=== PATIENT | female | born 1940 | race Caucasian/White ===

== ENCOUNTER 2017-01-20 08:44 | Emergency (ER) | payer MEDICARE, OTHER | END 2017-01-20 09:12 | disposition left against medical advice (07) | LOC: M ED 09:10 | DX: M25.562 Pain in left knee (principal); Z53.29 Procedure and treatment not carried out because of patient's decision for other reasons ==

== ENCOUNTER → 2017-06-20 | Outpatient (CLI) | payer MEDICARE, OTHER ==
--- NOTE | 2017-06-20 14:59 | REPMRS ---
Patient History The patient states she had a clinical breast exam in 06/15 Patient is nulliparous. No known family history of cancer. 2 benign localization of breast nodules of the right breast, 1976. Digital Woman Screen Mammo: June 20, 2017 - Exam #: [id number] Bilateral CC and MLO view(s) were taken. Technologist: Lacey Ramos, Technologist Prior study comparison: October 05, 2015, digital woman screen mammo performed at [facility] to [facility]. September 09, 2014, digital woman screen mammo performed at [facility] to [facility]. FINDINGS: There are scattered fibroglandular densities. There has been no change in the appearance of the mammogram from the prior studies. There is a mild amount of residual fibroglandular tissue which is fairly symmetric. There is no interval development of dominant mass, architectural distortion, or clustered microcalcification suggestive of malignancy. ASSESSMENT: BI-RADS/ACR category 1 mammogram. Negative. Recommendation Routine screening mammogram in 1 year (for women over age 40). This mammogram was interpreted with the aid of an FDA-approved computer-aided dectection system. Electronically Signed By: Mendez Martin MD 06/20/17 [id number]
== END ==
LOC: M WHC 13:42
PROVIDERS: ATTEND Nurse Practitioner Family
DX: Z12.31 Encounter for screening mammogram for malignant neoplasm of breast (principal); Z92.89 Personal history of other medical treatment; Z01.419 Encounter for gynecological examination (general) (routine) without abnormal findings; Z12.12 Encounter for screening for malignant neoplasm of rectum; B37.2 Candidiasis of skin and nail
CPT/HCPCS: 82270; G0101; G0202

== ENCOUNTER → 2017-07-18 | Outpatient (REF) | payer MEDICARE, OTHER ==
[2017-07-18 12:16] LABS: BASO % 0.5 % (0.0-1.0); EOS # 0.1 K/mm3 (0.0-0.50); EOS % 1.4 % (0.0-3.0); LARGE UNSTAINED CELL # 0.2 K/mm3 (0.0-0.4); LARGE UNSTAINED CELL % 2.4 % (0.0-4.0); LYMPH # 1.5 K/mm3 (1.5-4.5); MEAN CORPUSCULAR HEMOGLOBIN 34.4 pg (27.0-33.0); MEAN CORPUSCULAR HGB CONC 35.4 g/dl (32.0-36.5); MEAN CORPUSCULAR VOLUME 97.2 fl (80.0-96.0); MONO # 0.4 K/mm3 (0.0-0.8); MONO % 5.4 % (0.0-5.0); NEUTROPHILS # 5.2 K/mm3 (1.8-7.7); NEUTROPHILS % 70.5 % (36.0-66.0); PLATELET COUNT, AUTOMATED 239 k/mm3 (150-450); RED CELL DISTRIBUTION WIDTH 12.2 % (11.5-14.5); WHITE BLOOD COUNT 7.3 K/mm3 (4.0-10.0)
[2017-07-18 13:05] LABS: ALBUMIN 3.8 GM/DL (3.2-5.2); ALBUMIN/GLOBULIN RATIO 1.06 (1.00-1.93); BILIRUBIN,TOTAL 0.8 MG/DL (0.2-1.0); CALCIUM LEVEL 9.2 MG/DL (8.8-10.2); CREATININE FOR GFR 1.01 MG/DL (0.55-1.02); GLOMERULAR FILTRATION RATE 56.6 (>39); POTASSIUM SERUM 4.4 MEQ/L (3.5-5.1); TOTAL PROTEIN 7.4 GM/DL (6.4-8.2)
== END ==
LOC: M LABDRAW1 10:11
PROVIDERS: ATTEND Nurse Practitioner Family
DX: E78.4 Other hyperlipidemia (principal); I10 Essential (primary) hypertension; E11.9 Type 2 diabetes mellitus without complications

== ENCOUNTER 2017-11-08 16:36 | Inpatient (IN) | payer MEDICARE, OTHER ==
[2017-11-08] MEDS: ONDANSETRON 4MG/2ML VIAL (J2405) IV (17:07)
[2017-11-08] MEDS: MORPHINE 4 MG/ML 1ML SYRINGE IV (17:07)
[2017-11-08 17:46] LABS: BASO # 0.1 10^3/uL (0.0-0.2); BASO % 0.5 % (0.0-1.0); EOS # 0.2 10^3/uL (0.0-0.50); EOS % 2.1 % (0.0-3.0); HEMATOCRIT 40.9 % (36.0-47.0); HEMOGLOBIN 14.1 g/dl (12.0-16.0); IMMATURE GRANULOCYTE # 0.1 10^3/uL (0-0); IMMATURE GRANULOCYTE % 1.3 % (0-0); LYMPH # 1.9 10^3/uL (1.5-4.5); MEAN CORPUSCULAR HEMOGLOBIN 33.3 pg (27.0-33.0); MEAN CORPUSCULAR HGB CONC 34.5 g/dl (32.0-36.5); MEAN CORPUSCULAR VOLUME 96.5 fl (80.0-96.0); MONO # 0.6 10^3/uL (0.0-0.8); MONO % 6.6 % (0.0-5.0); NEUTROPHILS # 6.6 10^3/uL (1.8-7.7); NEUTROPHILS % 69.5 % (36.0-66.0); PLATELET COUNT, AUTOMATED 339 10^3/uL (150-450); RED BLOOD COUNT 4.24 10^6/uL (4.00-5.40); RED CELL DISTRIBUTION WIDTH 12.2 % (11.5-14.5); WHITE BLOOD COUNT 9.6 10^3/uL (4.0-10.0)
[2017-11-08 17:52] LABS: INR 1.08; PARTIAL THROMBOPLASTIN TIME 27.8 SECONDS (26.8-37.9); PROTHROMBIN TIME 14.2 SECONDS (12.4-14.5)
[2017-11-08 18:03] LABS: ANION GAP 10 MEQ/L (8-16); BLOOD UREA NITROGEN 21 MG/DL (7-18); CALCIUM LEVEL 9.1 MG/DL (8.8-10.2); CARBON DIOXIDE LEVEL 26 MEQ/L (21-32); CHLORIDE LEVEL 102 MEQ/L (98-107); CK-MB VALUE MASS 2.6 NG/ML (0.0-3.6); CPK CREATINE PHOSPHOKINASE 146 U/L (26-192); CREATININE FOR GFR 1.36 MG/DL (0.55-1.02); GLOMERULAR FILTRATION RATE 40.1 (>39); GLUCOSE, FASTING 175 MG/DL (83-110); MB/CK RELATIVE INDEX 1.78 (< OR =4); POTASSIUM SERUM 3.7 MEQ/L (3.5-5.1); SODIUM LEVEL 138 MEQ/L (136-145); TROPONIN I < 0.02 NG/ML (< 0.10)
[2017-11-08] MEDS: NALOXONE INJ 0.4 MG/1 ML VIAL (J2310) IV (18:46)
[2017-11-08] MEDS: NS 1,000 ML IV ×2 (18:53→23:24)
[2017-11-08] MEDS ORDERED: ONDANSETRON 4MG/2ML VIAL (J2405) IV (19:30)
[2017-11-08] MEDS: ACETAMINOPHEN TAB 650MG DOSE (2X325MG) PO (20:27)
[2017-11-09] MEDS: CALCIUM/VITAMIN D 250 MG TABLET PO ×3 (00:04→21:00)
[2017-11-09 00:33] LABS: ANION GAP 12 MEQ/L (8-16); BLOOD UREA NITROGEN 22 MG/DL (7-18); CARBON DIOXIDE LEVEL 24 MEQ/L (21-32); CHLORIDE LEVEL 101 MEQ/L (98-107); CPK CREATINE PHOSPHOKINASE 169 U/L (26-192); GLOMERULAR FILTRATION RATE 42.3 (>39); GLUCOSE, FASTING 280 MG/DL (83-110); POTASSIUM SERUM 4.2 MEQ/L (3.5-5.1); SODIUM LEVEL 137 MEQ/L (136-145); TROPONIN I < 0.02 NG/ML (< 0.10)
[2017-11-09 00:38] LABS: MB/CK RELATIVE INDEX 1.18 (< OR =4)
[2017-11-09] MEDS: KCL 10MEQ IN D5/0.45NS 1000ML 1,000 ML IV ×2 (06:30→22:26)
[2017-11-09 06:58] LABS: HEMATOCRIT 32.4 % (36.0-47.0); MEAN CORPUSCULAR HEMOGLOBIN 33.7 pg (27.0-33.0); MEAN CORPUSCULAR HGB CONC 35.2 g/dl (32.0-36.5); MEAN CORPUSCULAR VOLUME 95.9 fl (80.0-96.0); PLATELET COUNT, AUTOMATED 273 10^3/uL (150-450); RED BLOOD COUNT 3.38 10^6/uL (4.00-5.40); RED CELL DISTRIBUTION WIDTH 12.4 % (11.5-14.5); WHITE BLOOD COUNT 11.1 10^3/uL (4.0-10.0)
[2017-11-09 07:08] LABS: HEMOGLOBIN 11.4 g/dl (12.0-16.0)
[2017-11-09 07:17] LABS: ANION GAP 8 MEQ/L (8-16); BLOOD UREA NITROGEN 18 MG/DL (7-18); CALCIUM LEVEL 9.2 MG/DL (8.8-10.2); CARBON DIOXIDE LEVEL 26 MEQ/L (21-32); CHLORIDE LEVEL 103 MEQ/L (98-107); CREATININE FOR GFR 0.99 MG/DL (0.55-1.02); GLOMERULAR FILTRATION RATE 57.9 (>39); GLUCOSE, FASTING 167 MG/DL (83-110); MAGNESIUM LEVEL 1.8 MG/DL (1.8-2.4); POTASSIUM SERUM 3.9 MEQ/L (3.5-5.1); SODIUM LEVEL 137 MEQ/L (136-145)
[2017-11-09] MEDS ORDERED: LISINOPRIL 10 MG TAB PO (09:00)
[2017-11-09] MEDS ORDERED: ONDANSETRON 4MG/2ML VIAL (J2405) As Ordered (15:42)
[2017-11-09] MEDS ORDERED: LIDOCAINE 2% INJ 100 MG/5 ML SDV (FOR ANES.) As Ordered (15:42)
[2017-11-09] MEDS ORDERED: PHENYLEPHRINE INJ 10MG/ML VIAL (J2370) As Ordered ×2 (15:42→19:41)
[2017-11-09] MEDS ORDERED: dexameTHASONE 4 MG/ML 1ML VIAL (J1100) As Ordered (15:42)
[2017-11-09] MEDS ORDERED: PROPOFOL 200 MG/20 ML VIAL As Ordered ×2 (15:42→18:52)
[2017-11-09] MEDS ORDERED: PHENYLephrine HCL 500 MCG/5 ML (100MCG/ML) SYRINGE (J2370) As Ordered (15:42)
[2017-11-09] MEDS ORDERED: MIDAZOLAM INJ 2 MG/2 ML VIAL (J2250) As Ordered (15:43)
[2017-11-09] MEDS ORDERED: fentaNYL 100 MCG/2 ML INJECTION (J3010) As Ordered (15:43)
[2017-11-09] MEDS: CLINDAMYCIN 600 MG in APPROPRIATE DILUENT 1 EA IV (16:18)
[2017-11-09] MEDS: CLINDAMYCIN INJ 900MG/6ML VIAL As Ordered (16:52)
[2017-11-09] MEDS: ceFAZolin 2 GM/D5W 50 ML IV BAG (J0690 PER 500MG) As Ordered (18:06)
[2017-11-09] MEDS ORDERED: fentaNYL 100 MCG/2 ML INJECTION (J3010) IV (20:30)
[2017-11-09] MEDS ORDERED: PERCOCET 5MG/325MG TAB PO (20:30)
[2017-11-09] MEDS ORDERED: METOCLOPRAMIDE INJ 10MG/2ML VIAL (J2765) IV (20:30)
[2017-11-09] MEDS: LR 1,000 ML IV (20:30)
[2017-11-09] MEDS ORDERED: ONDANSETRON 4MG/2ML VIAL (J2405) IV (20:30)
[2017-11-09] MEDS ORDERED: MEPERIDINE INJ 25 MG/ML VIAL (J2175) IV (20:30)
[2017-11-09] MEDS ORDERED: FLEET ENEMA PR (20:45)
[2017-11-10] MEDS: CEFAZOLIN SOD 1 GM in APPROPRIATE DILUENT 1 EA IV ×2 (00:30→10:12)
[2017-11-10] MEDS: ACETAMINOPHEN TAB 650MG DOSE (2X325MG) PO (04:27)
[2017-11-10 05:39] LABS: HEMOGLOBIN 11.2 g/dl (12.0-16.0); MEAN CORPUSCULAR HEMOGLOBIN 33.7 pg (27.0-33.0); MEAN CORPUSCULAR VOLUME 96.4 fl (80.0-96.0); PLATELET COUNT, AUTOMATED 225 10^3/uL (150-450); RED BLOOD COUNT 3.32 10^6/uL (4.00-5.40); RED CELL DISTRIBUTION WIDTH 11.9 % (11.5-14.5); WHITE BLOOD COUNT 10.9 10^3/uL (4.0-10.0)
[2017-11-10 06:01] LABS: ANION GAP 8 MEQ/L (8-16); BLOOD UREA NITROGEN 14 MG/DL (7-18); CALCIUM LEVEL 8.5 MG/DL (8.8-10.2); CARBON DIOXIDE LEVEL 24 MEQ/L (21-32); CHLORIDE LEVEL 104 MEQ/L (98-107); CREATININE FOR GFR 1.05 MG/DL (0.55-1.02); GLOMERULAR FILTRATION RATE 54.1 (>39); GLUCOSE, FASTING 280 MG/DL (83-110); MAGNESIUM LEVEL 1.4 MG/DL (1.8-2.4); POTASSIUM SERUM 4.4 MEQ/L (3.5-5.1); SODIUM LEVEL 136 MEQ/L (136-145)
[2017-11-10] MEDS: MAG SULF 1GM/100ML (MAG RUN) 1 GM in APPROPRIATE DILUENT 1 EA IV ×2 (06:52→10:11)
[2017-11-10] MEDS ORDERED: MAG SULF 1GM/100ML (MAG RUN) 1 GM in APPROPRIATE DILUENT 1 EA IV (08:00)
[2017-11-10] MEDS: SENOKOT S TAB PO ×2 (10:11→21:18)
[2017-11-10] MEDS: CALCIUM/VITAMIN D 250 MG TABLET PO ×2 (10:11→21:18)
[2017-11-10] MEDS: MOM 30ML SUSPENSION UDC PO (10:11)
[2017-11-10] MEDS: ENOXAPARIN 40 MG/0.4 ML SYRINGE (J1650) SC (10:12)
[2017-11-10] MEDS: MIRALAX *UNIT DOSE* 17GM PACKET PO (10:12)
[2017-11-10] MEDS ORDERED: SLF 3 ML SYR IV (14:45)
[2017-11-10] MEDS: SLF 3 ML SYR IV (21:20)
[2017-11-11] MEDS: SLF 3 ML SYR IV ×3 (05:32→21:20)
[2017-11-11 05:58] LABS: HEMOGLOBIN 10.6 g/dl (12.0-16.0); MEAN CORPUSCULAR HEMOGLOBIN 32.6 pg (27.0-33.0); MEAN CORPUSCULAR HGB CONC 34.2 g/dl (32.0-36.5); MEAN CORPUSCULAR VOLUME 95.4 fl (80.0-96.0); PLATELET COUNT, AUTOMATED 249 10^3/uL (150-450); RED BLOOD COUNT 3.25 10^6/uL (4.00-5.40); RED CELL DISTRIBUTION WIDTH 12.1 % (11.5-14.5); WHITE BLOOD COUNT 12.2 10^3/uL (4.0-10.0)
[2017-11-11 06:12] LABS: ANION GAP 8 MEQ/L (8-16); BLOOD UREA NITROGEN 18 MG/DL (7-18); CALCIUM LEVEL 8.9 MG/DL (8.8-10.2); CARBON DIOXIDE LEVEL 26 MEQ/L (21-32); CHLORIDE LEVEL 104 MEQ/L (98-107); GLOMERULAR FILTRATION RATE > 60.0 (>39); GLUCOSE, FASTING 153 MG/DL (83-110); MAGNESIUM LEVEL 2.1 MG/DL (1.8-2.4); POTASSIUM SERUM 3.7 MEQ/L (3.5-5.1); SODIUM LEVEL 138 MEQ/L (136-145)
[2017-11-11] MEDS: CALCIUM/VITAMIN D 250 MG TABLET PO ×2 (09:34→21:20)
[2017-11-11] MEDS: MOM 30ML SUSPENSION UDC PO (09:34)
[2017-11-11] MEDS: traMADol 50 MG TAB PO (09:34)
[2017-11-11] MEDS: SENOKOT S TAB PO ×2 (09:34→21:20)
[2017-11-11] MEDS: MIRALAX *UNIT DOSE* 17GM PACKET PO (09:34)
[2017-11-11] MEDS: ENOXAPARIN 40 MG/0.4 ML SYRINGE (J1650) SC (09:34)
[2017-11-11] MEDS: ATENOLOL 50 MG TAB PO (10:45)
[2017-11-11 10:58] LABS: AMMONIA < 10 uMOL/L (<32)
[2017-11-11 11:02] LABS: ALBUMIN 3.4 GM/DL (3.2-5.2); ALKALINE PHOSPHATASE 74 U/L (45-117); ALT/SGPT 20 U/L (12-78); AST/SGOT 32 U/L (7-37); BILIRUBIN,DIRECT 0.2 MG/DL (0.0-0.2); BILIRUBIN,TOTAL 0.7 MG/DL (0.2-1.0); TOTAL PROTEIN 6.8 GM/DL (6.4-8.2)
[2017-11-11 11:18] LABS: ESTIMATED AVERAGE GLUCOSE 163 MG/DL (60-110); HEMOGLOBIN A1c 7.3 %
[2017-11-11] MEDS: glyBURIDE 5 MG TAB PO (11:22)
[2017-11-11] MEDS: metFORMIN (GLUCOPHAGE) 500 MG TAB PO ×2 (12:07→17:55)
[2017-11-11 12:18] LABS: BEDSIDE GLUCOSE 245 MG/DL (83-110)
[2017-11-11 15:15] LABS: AMORPHOUS SEDIMENT RFX SMALL (NEGATIVE); KETONE, URINE AUTO RFX NEGATIVE (NEGATIVE); MUCUS, URINE RFX SMALL (NEGATIVE); NITRITE, URINE AUTO RFX NEGATIVE (NEGATIVE); RBC, URINE AUTO RFX 0 /HPF (0-3); SPECIFIC GRAVITY UR AUTO RFX 1.019 (1.002-1.035); SQUAM EPITHELIAL CELL UR AURFX 8 /HPF (0-6)
[2017-11-11 15:16] LABS: LEUKOCYTE ESTERASE UR AUTO RFX 1+ (NEGATIVE); WBC, URINE AUTO RFX 36 /HPF (0-3)
[2017-11-11 17:42] LABS: BEDSIDE GLUCOSE 202 MG/DL (83-110)
[2017-11-12] MEDS: SLF 3 ML SYR IV ×3 (04:01→20:22)
[2017-11-12 06:15] LABS: HEMOGLOBIN 9.6 g/dl (12.0-16.0); MEAN CORPUSCULAR HEMOGLOBIN 33.2 pg (27.0-33.0); MEAN CORPUSCULAR HGB CONC 34.3 g/dl (32.0-36.5); MEAN CORPUSCULAR VOLUME 96.9 fl (80.0-96.0); PLATELET COUNT, AUTOMATED 226 10^3/uL (150-450); RED BLOOD COUNT 2.89 10^6/uL (4.00-5.40); RED CELL DISTRIBUTION WIDTH 12.6 % (11.5-14.5); WHITE BLOOD COUNT 9.9 10^3/uL (4.0-10.0)
[2017-11-12 06:36] LABS: ANION GAP 7 MEQ/L (8-16); BLOOD UREA NITROGEN 20 MG/DL (7-18); CALCIUM LEVEL 8.4 MG/DL (8.8-10.2); CARBON DIOXIDE LEVEL 27 MEQ/L (21-32); CHLORIDE LEVEL 105 MEQ/L (98-107); CREATININE FOR GFR 0.81 MG/DL (0.55-1.02); GLOMERULAR FILTRATION RATE > 60.0 (>39); GLUCOSE, FASTING 145 MG/DL (83-110); SODIUM LEVEL 139 MEQ/L (136-145)
[2017-11-12] MEDS: MOM 30ML SUSPENSION UDC PO (07:25)
[2017-11-12] MEDS: MIRALAX *UNIT DOSE* 17GM PACKET PO (07:25)
[2017-11-12] MEDS: glyBURIDE 5 MG TAB PO (07:25)
[2017-11-12] MEDS: SENOKOT S TAB PO ×2 (07:25→20:22)
[2017-11-12] MEDS: metFORMIN (GLUCOPHAGE) 500 MG TAB PO ×3 (07:25→17:46)
[2017-11-12] MEDS: traMADol 50 MG TAB PO ×2 (07:35→12:39)
[2017-11-12] MEDS: ATENOLOL 50 MG TAB PO (09:00)
[2017-11-12] MEDS: CALCIUM/VITAMIN D 250 MG TABLET PO ×2 (10:03→20:22)
[2017-11-12] MEDS: ENOXAPARIN 40 MG/0.4 ML SYRINGE (J1650) SC (10:04)
[2017-11-12 12:12] LABS: BEDSIDE GLUCOSE 164 MG/DL (83-110)
[2017-11-12 17:57] LABS: BEDSIDE GLUCOSE 191 MG/DL (83-110)
[2017-11-13] MEDS: SLF 3 ML SYR IV (05:27)
[2017-11-13 07:09] LABS: HEMATOCRIT 28.8 % (36.0-47.0); HEMOGLOBIN 9.8 g/dl (12.0-16.0); MEAN CORPUSCULAR HEMOGLOBIN 33.2 pg (27.0-33.0); MEAN CORPUSCULAR VOLUME 97.6 fl (80.0-96.0); PLATELET COUNT, AUTOMATED 235 10^3/uL (150-450); RED BLOOD COUNT 2.95 10^6/uL (4.00-5.40); RED CELL DISTRIBUTION WIDTH 12.7 % (11.5-14.5); WHITE BLOOD COUNT 8.2 10^3/uL (4.0-10.0)
[2017-11-13 07:22] LABS: ANION GAP 6 MEQ/L (8-16); BLOOD UREA NITROGEN 17 MG/DL (7-18); CALCIUM LEVEL 8.3 MG/DL (8.8-10.2); CARBON DIOXIDE LEVEL 27 MEQ/L (21-32); CHLORIDE LEVEL 104 MEQ/L (98-107); CREATININE FOR GFR 0.79 MG/DL (0.55-1.02); GLOMERULAR FILTRATION RATE > 60.0 (>39); GLUCOSE, FASTING 145 MG/DL (83-110); MAGNESIUM LEVEL 1.9 MG/DL (1.8-2.4); POTASSIUM SERUM 3.9 MEQ/L (3.5-5.1); SODIUM LEVEL 137 MEQ/L (136-145)
[2017-11-13] MEDS: glyBURIDE 5 MG TAB PO (07:30)
[2017-11-13] MEDS: metFORMIN (GLUCOPHAGE) 500 MG TAB PO ×2 (08:00→12:05)
[2017-11-13] MEDS: ENOXAPARIN 40 MG/0.4 ML SYRINGE (J1650) SC (08:40)
[2017-11-13] MEDS: MOM 30ML SUSPENSION UDC PO (08:40)
[2017-11-13] MEDS: MIRALAX *UNIT DOSE* 17GM PACKET PO (08:41)
[2017-11-13] MEDS: SENOKOT S TAB PO (08:43)
[2017-11-13] MEDS: ATENOLOL 50 MG TAB PO (08:43)
[2017-11-13] MEDS: CALCIUM/VITAMIN D 250 MG TABLET PO (08:43)
[2017-11-13] MEDS: traMADol 50 MG TAB PO (10:42)
[2017-11-13 11:51] LABS: BEDSIDE GLUCOSE 173 MG/DL (83-110)
== END 2017-11-13 13:00 | DRG 482 ==
LOC: M PCU 11-09 20:59 → M ED 16:36 → M ED INP 19:29 → M MS5PR 11-10 17:40 → M MSPAV 23:08
PROC: 0QS706Z Reposition Left Upper Femur with Intramedullary Internal Fixation Device, Open Approach (ICD-10-PCS; principal; 2017-11-09 16:00)
DX: S72.102A Unspecified trochanteric fracture of left femur, initial encounter for closed fracture (principal); R00.1 Bradycardia, unspecified; E11.9 Type 2 diabetes mellitus without complications; I10 Essential (primary) hypertension; E78.00 Pure hypercholesterolemia, unspecified; R41.0 Disorientation, unspecified; E78.5 Hyperlipidemia, unspecified; W00.2XXA Other fall from one level to another due to ice and snow, initial encounter; Y93.01 Activity, walking, marching and hiking; Y92.9 Unspecified place or not applicable; Y99.9 Unspecified external cause status; Z90.711 Acquired absence of uterus with remaining cervical stump

== ENCOUNTER 2017-11-13 13:05 | Inpatient (IN) | payer MEDICARE, OTHER ==
[~2017-11-13 13:05] MED LIST: FLEET ENEMA PR; MOM 30ML SUSPENSION UDC PO
[2017-11-13] MEDS: metFORMIN (GLUCOPHAGE) 1000 MG TABLET PO (18:08)
[2017-11-13] MEDS: SENOKOT S TAB PO (20:03)
[2017-11-13] MEDS: CALCIUM/VITAMIN D 250 MG TABLET PO (20:27)
[2017-11-14 07:25] LABS: BASO % 0.4 % (0.0-1.0); EOS # 0.4 10^3/uL (0.0-0.50); EOS % 4.9 % (0.0-3.0); HEMATOCRIT 29.2 % (36.0-47.0); HEMOGLOBIN 9.9 g/dl (12.0-16.0); IMMATURE GRANULOCYTE # 0.2 10^3/uL (0-0); IMMATURE GRANULOCYTE % 2.3 % (0-0); LYMPH # 1.3 10^3/uL (1.5-4.5); MEAN CORPUSCULAR HGB CONC 33.9 g/dl (32.0-36.5); MEAN CORPUSCULAR VOLUME 97.3 fl (80.0-96.0); MONO # 0.6 10^3/uL (0.0-0.8); MONO % 7.7 % (0.0-5.0); NEUTROPHILS # 4.9 10^3/uL (1.8-7.7); NEUTROPHILS % 66.7 % (36.0-66.0); PLATELET COUNT, AUTOMATED 253 10^3/uL (150-450); RED CELL DISTRIBUTION WIDTH 13.1 % (11.5-14.5); WHITE BLOOD COUNT 7.4 10^3/uL (4.0-10.0)
[2017-11-14 07:51] LABS: ALBUMIN 2.6 GM/DL (3.2-5.2); ALBUMIN/GLOBULIN RATIO 0.74 (1.00-1.93); ALKALINE PHOSPHATASE 69 U/L (45-117); ALT/SGPT 20 U/L (12-78); ANION GAP 5 MEQ/L (8-16); AST/SGOT 26 U/L (7-37); BILIRUBIN,TOTAL 0.8 MG/DL (0.2-1.0); BLOOD UREA NITROGEN 15 MG/DL (7-18); CALCIUM LEVEL 8.5 MG/DL (8.8-10.2); CARBON DIOXIDE LEVEL 29 MEQ/L (21-32); CHLORIDE LEVEL 105 MEQ/L (98-107); CREATININE FOR GFR 0.76 MG/DL (0.55-1.02); GLOMERULAR FILTRATION RATE > 60.0 (>39); GLUCOSE, FASTING 157 MG/DL (83-110); SODIUM LEVEL 139 MEQ/L (136-145); TOTAL PROTEIN 6.1 GM/DL (6.4-8.2)
[2017-11-14] MEDS: CALCIUM/VITAMIN D 250 MG TABLET PO ×2 (08:20→21:02)
[2017-11-14] MEDS: metFORMIN (GLUCOPHAGE) 1000 MG TABLET PO ×2 (08:20→18:13)
[2017-11-14] MEDS: MIRALAX *UNIT DOSE* 17GM PACKET PO (08:21)
[2017-11-14] MEDS: SENOKOT S TAB PO (08:21)
[2017-11-14] MEDS: ATENOLOL 50 MG TAB PO (08:21)
[2017-11-14] MEDS: ENOXAPARIN 40 MG/0.4 ML SYRINGE (J1650) SC (08:21)
[2017-11-14] MEDS: glyBURIDE 5 MG TAB PEG (08:21)
[2017-11-14] MEDS: traMADol 50 MG TAB PO (08:50)
[2017-11-14] MEDS: LevoFLOXacin 250 MG TABLET PO (09:57)
[2017-11-14] MEDS: metFORMIN (GLUCOPHAGE) 500 MG TAB PO (12:31)
[2017-11-14] MEDS: ACETAMINOPHEN TAB 650MG DOSE (2X325MG) PO (21:03)
[2017-11-15] MEDS: ACETAMINOPHEN TAB 650MG DOSE (2X325MG) PO ×2 (05:18→21:54)
[2017-11-15] MEDS: LevoFLOXacin 250 MG TABLET PO (05:18)
[2017-11-15] MEDS: ENOXAPARIN 40 MG/0.4 ML SYRINGE (J1650) SC (08:34)
[2017-11-15] MEDS: metFORMIN (GLUCOPHAGE) 1000 MG TABLET PO ×2 (08:35→17:06)
[2017-11-15] MEDS: CALCIUM/VITAMIN D 250 MG TABLET PO ×2 (08:35→21:54)
[2017-11-15] MEDS: glyBURIDE 5 MG TAB PEG (08:35)
[2017-11-15] MEDS: ATENOLOL 50 MG TAB PO (08:35)
[2017-11-15] MEDS ORDERED: MIRALAX *UNIT DOSE* 17GM PACKET PO (09:00)
[2017-11-15] MEDS ORDERED: SENOKOT S TAB PO (09:00)
[2017-11-15] MEDS: metFORMIN (GLUCOPHAGE) 500 MG TAB PO (12:01)
[2017-11-16] MEDS: traMADol 50 MG TAB PO ×2 (01:55→09:04)
[2017-11-16] MEDS: LevoFLOXacin 250 MG TABLET PO (05:40)
[2017-11-16 07:13] LABS: HEMATOCRIT 28.6 % (36.0-47.0); HEMOGLOBIN 9.6 g/dl (12.0-16.0); MEAN CORPUSCULAR HEMOGLOBIN 33.2 pg (27.0-33.0); MEAN CORPUSCULAR HGB CONC 33.6 g/dl (32.0-36.5); PLATELET COUNT, AUTOMATED 258 10^3/uL (150-450); RED BLOOD COUNT 2.89 10^6/uL (4.00-5.40); RED CELL DISTRIBUTION WIDTH 13.4 % (11.5-14.5); WHITE BLOOD COUNT 7.3 10^3/uL (4.0-10.0)
[2017-11-16 07:25] LABS: ALBUMIN 2.6 GM/DL (3.2-5.2); ALBUMIN/GLOBULIN RATIO 0.76 (1.00-1.93); ALKALINE PHOSPHATASE 60 U/L (45-117); ALT/SGPT 21 U/L (12-78); ANION GAP 6 MEQ/L (8-16); AST/SGOT 26 U/L (7-37); BILIRUBIN,TOTAL 0.6 MG/DL (0.2-1.0); BLOOD UREA NITROGEN 13 MG/DL (7-18); CALCIUM LEVEL 8.2 MG/DL (8.8-10.2); CARBON DIOXIDE LEVEL 26 MEQ/L (21-32); CHLORIDE LEVEL 108 MEQ/L (98-107); CREATININE FOR GFR 0.81 MG/DL (0.55-1.02); GLOMERULAR FILTRATION RATE > 60.0 (>39); GLUCOSE, FASTING 114 MG/DL (83-110); POTASSIUM SERUM 3.9 MEQ/L (3.5-5.1); SODIUM LEVEL 140 MEQ/L (136-145)
[2017-11-16] MEDS: ENOXAPARIN 40 MG/0.4 ML SYRINGE (J1650) SC (09:02)
[2017-11-16] MEDS: CALCIUM/VITAMIN D 250 MG TABLET PO ×2 (09:02→20:46)
[2017-11-16] MEDS: metFORMIN (GLUCOPHAGE) 1000 MG TABLET PO ×2 (09:03→17:45)
[2017-11-16] MEDS: ATENOLOL 50 MG TAB PO (09:03)
[2017-11-16] MEDS: glyBURIDE 5 MG TAB PEG (09:03)
[2017-11-16] MEDS: metFORMIN (GLUCOPHAGE) 500 MG TAB PO (13:57)
[2017-11-16] MEDS: ACETAMINOPHEN TAB 650MG DOSE (2X325MG) PO (20:46)
[2017-11-17] MEDS: traMADol 50 MG TAB PO ×3 (00:55→20:28)
[2017-11-17] MEDS: LevoFLOXacin 250 MG TABLET PO (05:40)
[2017-11-17] MEDS: CALCIUM/VITAMIN D 250 MG TABLET PO ×2 (09:06→20:27)
[2017-11-17] MEDS: glyBURIDE 5 MG TAB PEG (09:06)
[2017-11-17] MEDS: metFORMIN (GLUCOPHAGE) 1000 MG TABLET PO ×2 (09:06→17:18)
[2017-11-17] MEDS: ENOXAPARIN 40 MG/0.4 ML SYRINGE (J1650) SC (09:08)
[2017-11-17] MEDS: ATENOLOL 50 MG TAB PO (09:09)
[2017-11-17] MEDS: metFORMIN (GLUCOPHAGE) 500 MG TAB PO (12:24)
[2017-11-18] MEDS: ACETAMINOPHEN TAB 650MG DOSE (2X325MG) PO ×2 (05:20→20:10)
[2017-11-18] MEDS: LevoFLOXacin 250 MG TABLET PO (05:20)
[2017-11-18] MEDS: metFORMIN (GLUCOPHAGE) 1000 MG TABLET PO ×2 (08:10→17:47)
[2017-11-18] MEDS: CALCIUM/VITAMIN D 250 MG TABLET PO ×2 (08:10→20:10)
[2017-11-18] MEDS: glyBURIDE 5 MG TAB PEG (08:10)
[2017-11-18] MEDS: traMADol 50 MG TAB PO (08:11)
[2017-11-18] MEDS: ATENOLOL 50 MG TAB PO (08:11)
[2017-11-18] MEDS: ENOXAPARIN 40 MG/0.4 ML SYRINGE (J1650) SC (08:11)
[2017-11-18] MEDS: metFORMIN (GLUCOPHAGE) 500 MG TAB PO (12:32)
[2017-11-19] MEDS: LevoFLOXacin 250 MG TABLET PO (06:44)
[2017-11-19] MEDS: ACETAMINOPHEN TAB 650MG DOSE (2X325MG) PO (06:45)
[2017-11-19 06:56] LABS: HEMATOCRIT 31.9 % (36.0-47.0); HEMOGLOBIN 10.6 g/dl (12.0-16.0); MEAN CORPUSCULAR HEMOGLOBIN 33.1 pg (27.0-33.0); MEAN CORPUSCULAR HGB CONC 33.2 g/dl (32.0-36.5); MEAN CORPUSCULAR VOLUME 99.7 fl (80.0-96.0); PLATELET COUNT, AUTOMATED 320 10^3/uL (150-450); RED CELL DISTRIBUTION WIDTH 14.1 % (11.5-14.5); WHITE BLOOD COUNT 8.1 10^3/uL (4.0-10.0)
[2017-11-19 07:16] LABS: ANION GAP 7 MEQ/L (8-16); BLOOD UREA NITROGEN 14 MG/DL (7-18); CARBON DIOXIDE LEVEL 26 MEQ/L (21-32); CHLORIDE LEVEL 105 MEQ/L (98-107); CREATININE FOR GFR 0.83 MG/DL (0.55-1.02); GLOMERULAR FILTRATION RATE > 60.0 (>39); GLUCOSE, FASTING 81 MG/DL (83-110); SODIUM LEVEL 138 MEQ/L (136-145)
[2017-11-19] MEDS: traMADol 50 MG TAB PO ×2 (08:08→19:56)
[2017-11-19] MEDS: glyBURIDE 5 MG TAB PEG (08:08)
[2017-11-19] MEDS: metFORMIN (GLUCOPHAGE) 1000 MG TABLET PO ×2 (08:08→18:39)
[2017-11-19] MEDS: ATENOLOL 50 MG TAB PO (08:09)
[2017-11-19] MEDS: ENOXAPARIN 40 MG/0.4 ML SYRINGE (J1650) SC (08:09)
[2017-11-19] MEDS: CALCIUM/VITAMIN D 250 MG TABLET PO ×2 (08:09→19:55)
[2017-11-19] MEDS: metFORMIN (GLUCOPHAGE) 500 MG TAB PO (12:48)
[2017-11-20] MEDS: LevoFLOXacin 250 MG TABLET PO (05:09)
[2017-11-20] MEDS: ACETAMINOPHEN TAB 650MG DOSE (2X325MG) PO ×2 (05:09→20:44)
[2017-11-20] MEDS: ENOXAPARIN 40 MG/0.4 ML SYRINGE (J1650) SC (08:36)
[2017-11-20] MEDS: CALCIUM/VITAMIN D 250 MG TABLET PO ×2 (08:36→20:43)
[2017-11-20] MEDS: metFORMIN (GLUCOPHAGE) 1000 MG TABLET PO ×2 (08:36→17:25)
[2017-11-20] MEDS: glyBURIDE 5 MG TAB PEG (08:37)
[2017-11-20] MEDS: ATENOLOL 50 MG TAB PO (08:38)
[2017-11-20] MEDS: metFORMIN (GLUCOPHAGE) 500 MG TAB PO (12:08)
[2017-11-20] MEDS: traMADol 50 MG TAB PO (21:55)
[2017-11-21] MEDS: ACETAMINOPHEN TAB 650MG DOSE (2X325MG) PO ×2 (03:34→20:24)
[2017-11-21] MEDS: glyBURIDE 5 MG TAB PEG (07:30)
[2017-11-21] MEDS: metFORMIN (GLUCOPHAGE) 1000 MG TABLET PO ×2 (08:00→17:50)
[2017-11-21] MEDS: CALCIUM/VITAMIN D 250 MG TABLET PO ×2 (09:00→20:24)
[2017-11-21] MEDS: ATENOLOL 50 MG TAB PO (09:00)
[2017-11-21] MEDS: ENOXAPARIN 40 MG/0.4 ML SYRINGE (J1650) SC (12:16)
[2017-11-21] MEDS: metFORMIN (GLUCOPHAGE) 500 MG TAB PO (12:17)
[2017-11-22 07:22] LABS: MEAN CORPUSCULAR HEMOGLOBIN 33.8 pg (27.0-33.0); MEAN CORPUSCULAR HGB CONC 33.3 g/dl (32.0-36.5); MEAN CORPUSCULAR VOLUME 101.4 fl (80.0-96.0); PLATELET COUNT, AUTOMATED 320 10^3/uL (150-450); RED BLOOD COUNT 2.96 10^6/uL (4.00-5.40); RED CELL DISTRIBUTION WIDTH 14.5 % (11.5-14.5); WHITE BLOOD COUNT 6.9 10^3/uL (4.0-10.0)
[2017-11-22] MEDS: CALCIUM/VITAMIN D 250 MG TABLET PO (08:45)
[2017-11-22] MEDS: metFORMIN (GLUCOPHAGE) 1000 MG TABLET PO (08:45)
[2017-11-22] MEDS: glyBURIDE 5 MG TAB PEG (08:45)
[2017-11-22] MEDS: ATENOLOL 50 MG TAB PO (08:48)
[2017-11-22] MEDS: ENOXAPARIN 40 MG/0.4 ML SYRINGE (J1650) SC (08:48)
[2017-11-22] MEDS: metFORMIN (GLUCOPHAGE) 500 MG TAB PO (12:48)
== END 2017-11-22 13:45 | disposition home health service (06) | DRG 560 ==
LOC: M PM&R 13:05
DX: S72.142D Displaced intertrochanteric fracture of left femur, subsequent encounter for closed fracture with routine healing (principal); N39.0 Urinary tract infection, site not specified; I25.10 Atherosclerotic heart disease of native coronary artery without angina pectoris; I10 Essential (primary) hypertension; E78.5 Hyperlipidemia, unspecified; I25.2 Old myocardial infarction; E11.9 Type 2 diabetes mellitus without complications; E66.9 Obesity, unspecified; M85.80 Other specified disorders of bone density and structure, unspecified site; M17.12 Unilateral primary osteoarthritis, left knee; Z87.891 Personal history of nicotine dependence; Z88.0 Allergy status to penicillin; Z88.5 Allergy status to narcotic agent; Z79.84 Long term (current) use of oral hypoglycemic drugs; Z79.899 Other long term (current) drug therapy; W01.0XXD Fall on same level from slipping, tripping and stumbling without subsequent striking against object, subsequent encounter; Y92.89 Other specified places as the place of occurrence of the external cause; B96.20 Unspecified Escherichia coli [E. coli] as the cause of diseases classified elsewhere; D64.9 Anemia, unspecified; Z68.35 Body mass index [BMI] 35.0-35.9, adult

== ENCOUNTER 2018-01-31 10:44 | Outpatient (RCR) | payer MEDICARE, OTHER | END 2018-02-26 | LOC: M PT 10:44 | DX: Z47.89 Encounter for other orthopedic aftercare (principal); S72.142D Displaced intertrochanteric fracture of left femur, subsequent encounter for closed fracture with routine healing | CPT/HCPCS: 97110 ==

== ENCOUNTER 2018-03-01 08:11 | Outpatient (RCR) | payer MEDICARE, OTHER | END 2018-03-29 | disposition home or self-care (01) | LOC: M PT 08:11 | DX: Z47.89 Encounter for other orthopedic aftercare (principal); S72.142D Displaced intertrochanteric fracture of left femur, subsequent encounter for closed fracture with routine healing | CPT/HCPCS: 97110 ==

== ENCOUNTER → 2020-03-20 | Outpatient (REF) | payer MEDICARE, OTHER ==
[~2020-03-20] MED LIST changes: +ASPI1TAB15 PO; +ATEN50TA2 PO; +CALC25TA PO; -FLEET ENEMA PR; +GLYB5TA PO; +LISI20TA20 PO; +LOVE1INJ SC; +METF500T13 PO; +MILK120011 PO; -MOM 30ML SUSPENSION UDC PO; +ONGL1TAB9 PO; +SENN-53 PO; +TRAM50TA2 PO
[2020-03-20 17:10] LABS: ALBUMIN 3.8 GM/DL (3.2-5.2); BILIRUBIN,TOTAL 0.7 MG/DL (0.2-1.0); CALCIUM LEVEL 9.5 MG/DL (8.8-10.2); CHOLESTEROL RISK RATIO 4.9 (<5); GLOMERULAR FILTRATION RATE 56.8 (>32); POTASSIUM SERUM 4.7 MEQ/L (3.5-5.1); TOTAL PROTEIN 7.4 GM/DL (6.4-8.2)
[2020-03-20 17:43] LABS: HEMOGLOBIN A1c 7.6 %
== END ==
LOC: M SFHCPLAZ 13:54
PROVIDERS: ATTEND Physician Assistant
DX: E11.9 Type 2 diabetes mellitus without complications (principal); E78.2 Mixed hyperlipidemia

== ENCOUNTER 2020-05-17 11:02 | Inpatient (IN) | payer MEDICARE, OTHER ==
[~2020-05-17] VITALS: Ht 154.9 cm; Wt 92.5 kg
[2020-05-17 12:08] LABS: BASO % 0.1 % (0.0-1.0); HEMATOCRIT 36.3 % (36.0-47.0); HEMOGLOBIN 11.1 g/dl (12.0-15.5); LYMPH # 0.4 10^3/uL (1.5-5.0); LYMPH % 1.9 % (24.0-44.0); MEAN CORPUSCULAR HGB CONC 30.6 g/dl (32.0-36.5); MONO # 0.9 10^3/uL (0.0-0.8); MONO % 4.5 % (0.0-5.0); NEUTROPHILS # 17.7 10^3/uL (1.5-8.5); NEUTROPHILS % 92.7 % (36.0-66.0); PLATELET COUNT, AUTOMATED 237 10^3/uL (150-450); RED BLOOD COUNT 4.27 10^6/uL (4.00-5.40); WHITE BLOOD COUNT 19.1 10^3/uL (4.0-10.0)
--- NOTE | 2020-05-17 12:36 | REP ---
REASON: Cough and dyspnea. COMPARISON: Two-view 07/15/2008 and portable exam 11/08/2017, the latest prior. Once again, there is cardiomegaly accentuated by technique. Once again, there is a diffuse increase in the interstitial markings throughout the lung hill; however, this has increased from the prior exam. There is a haziness throughout the pulmonary vascularity. There are no patchy opacities or pleural effusions. IMPRESSION: CHF pattern with cardiomegaly. Electronically Signed by Jhonny Tovar DO 05/17/2020 01:11 P
[2020-05-17 12:48] LABS: ALBUMIN 2.8 GM/DL (3.2-5.2); BILIRUBIN,DIRECT 0.5 MG/DL (0.0-0.2); BILIRUBIN,TOTAL 1.2 MG/DL (0.2-1.0); CALCIUM LEVEL 8.3 MG/DL (8.8-10.2); CREATININE FOR GFR 1.34 MG/DL (0.55-1.30); GLOMERULAR FILTRATION RATE 40.5 (>32); POTASSIUM SERUM 4.5 MEQ/L (3.5-5.1); THYROID STIMULATING HORMONE 2.44 uIU/ML (0.358-3.740); THYROXINE (T4) 7.2 UG/DL (4.5-12.0); TOTAL PROTEIN 6.2 GM/DL (6.4-8.2)
[2020-05-17] MEDS ORDERED: FUROSEMIDE 20MG/2ML VIAL (J1940) IV ONE ×2 (13:00→15:00)
[2020-05-17] MEDS: VANCOMYCIN HCL 1,000 MG, VIAL MATE ADAPTER 1 EACH in D5W 250 ML IV SCH (13:39)
[2020-05-17] MEDS ORDERED: ATEN50TA2 PO (14:14)
[2020-05-17] MEDS ORDERED: SENN-52 PO (14:14)
[2020-05-17] MEDS ORDERED: OYST1TAB PO (14:14)
[2020-05-17] MEDS ORDERED: GLYB5TA GT (14:14)
[2020-05-17] MEDS ORDERED: METF500T13 PO ×2 (14:14)
[2020-05-17] MEDS ORDERED: ONGL1TAB9 PO (14:14)
[2020-05-17] MEDS ORDERED: MILKSUS3 PO (14:14)
[2020-05-17] MEDS ORDERED: GLUCOSE 4GM CHEW TABLET PO PRN (14:15)
[2020-05-17] MEDS ORDERED: GLUCAGON INJ 1MG VIAL SC PRN (14:15)
[2020-05-17] MEDS ORDERED: DEXTROSE 50% 50 ML SYRINGE IV PRN (14:15)
--- NOTE | 2020-05-17 14:28 | HPEPDOC ---
[facility] Medical History & Physical Date of Admission May 17, 2020 Date of Service: May 17, 2020 History and Physical CHIEF COMPLAINT: LLE swelling HISTORY OF PRESENT ILLNESS: Patient is 80 year old female with dementia, DM, HTN, HLD, CAD? presented to the ER with complaints of LLE swelling and pain. Patient is AAO x3 but unable to answer any medical problems, her at bedside can answer some but does not know her medical problems either, history of obtained from previous documentation and ER. Patient's states that patient has had swelling in her legs b/l for 3 weeks associated with erythema along with SOB. Unable to provide any further history and only states that there is some pain in her left leg but denies any chest pain, current SOB, fever, chills or any other complaints. Does not report previous history of CHF. Patient [place] saying [place]. In ER, patient was found to have b/l pitting edema along with BNP 4800 and CXR suggestive of vascular congestion. Patient and both denies any knowledge of any cardiac problems in the past. PAST MEDICAL HISTORY: Refer to [facility] PAST SURGICAL HISTORY: Appendectomy Partial hysterectomy SOCIAL HISTORY: Former smoker. Denies alcohol or illicit drug use. FAMILY HISTORY: Father- thromboembolism of unknown site ALLERGIES: Please see below. REVIEW OF SYSTEMS: 10 point review of system negative except as stated in [facility] HOME MEDICATIONS: Please see below. PHYSICAL EXAMINATION: General: Alert, some confusion Eyes: Normal sclera, EOMI HENT: Atraumatic Cardiovascular: Normal rate, normal rhythm. Pulmonary: Clear to auscultation b/l, no wheezing GI: Soft, nontender, nondistended Skin: LLE erythema up to groin, worse below knees with several drained blisters. Neuro: CN grossly intact. No focal deficits. Somewhat confused, does not answer all questions or appropriately or at all. LABORATORY DATA: See below. IMAGING: CXR- CHF pattern with cardiomegaly. Venous doppler-Follow up report. MICROBIOLOGY: Please see below. ASSESSMENT AND PLAN: 1. Sepsis 2/2 LLE cellulitis - 2/2 persistent fluid overload. Likely undiagnosed congestive heart failure. - Erythema throughout LLE up to groin worse below the knees with 2-3+ pitting edema and several drained blisters. - Blood cultures obtained, LA 4.4 and WBC 19. - Patient fluid overload, would hold off on IVF at this time. Continue to monitor closely. 2. Suspect acute on chronic CHF of unknown type - Obtain ECHO. - Start with lasix 40mg IV BID. Patient diuretic naive, try not to be too aggressive. - Monitor I/O. Fluid restriction along with daily weights. - BNP 4800. 3. DM - Hold metformin. Continue with ISS. - Add levemir if needed. 4. HTN - BP controlled on atenolol. 5. CAD? - Patient and denies. - c/w ASA. 6. Dementia DVT ppx: Lovenox and SCD Code status: Full code Vital Signs Vital Signs Date Time Temp Pulse Resp B/P (MAP) Pulse Ox O2 Delivery O2 Flow Rate FiO2 05/17/20 13:45 85 23 127/73 (91) 99 Room Air 05/17/20 11:06 99.2 Laboratory Data Labs 24H Laboratory Tests 2 05/17/20 11:54: Immature Granulocyte % (Auto) 0.8, Neutrophils (%) (Auto) 92.7H, Lymphocytes (%) (Auto) 1.9L, Monocytes (%) (Auto) 4.5, Eosinophils (%) (Auto) 0.0, Basophils (%) (Auto) 0.1, Neutrophils # (Auto) 17.7H, Lymphocytes # (Auto) 0.4L, Monocytes # (Auto) 0.9H, Eosinophils # (Auto) 0.0, Basophils # (Auto) 0.0, Nucleated Red Blood Cells % (auto) 0.0, Anion Gap 12, Glomerular Filtration Rate 40.5, Lactic Acid Level 4.3*H, Calcium Level 8.3L, Total Bilirubin 1.2H, Direct Bilirubin 0.5H, Aspartate Amino Transf (AST/SGOT) 22, Alanine Aminotransferase (ALT/SGPT) 30, Alkaline Phosphatase 92, GL-Pdk-S-Type Natriuretic Peptide 4810H, Total Protein 6.2L, Albumin 2.8L, Albumin/Globulin Ratio 0.8L, Thyroid Stimulating Hormone (TSH) 2.440, Thyroxine (T4) 7.2 05/17/20 12:31: POC Glucose (Misc Panel) 177H, POC Sodium (Misc Panel) 135L, POC Potassium (Misc Panel) 4.8, POC Chloride (Misc Panel) 101, POC Total CO2 (Misc Panel) 23.0, POC Blood Urea Nitrogen (Misc Panel 23, POC Ionized Calcium (Misc Panel) 4.5, POC C reatinine (Misc Panel) 1.1, POC Hematocrit (Misc Panel) 38.0 05/17/20 12:33: POC Troponin I (Misc) 0.01 CBC/BMP Laboratory Tests 05/17/20 11:54 Microbiology Microbiology 05/17/20 Blood Culture, Received Pending 05/17/20 Blood Culture, Received Pending Home Medications Scheduled Aspirin (Aspirin EC) 81 Mg Tab, 81 MG PO DAILY Atenolol (Atenolol) 50 Mg Tablet, 50 MG PO DAILY Calcium Carbonate/Vitamin D3 (Oyster Shell 250-Vit D3 125 Tb) 1 Each Tablet, 1 TAB PO BID Glyburide (Glyburide) 5 Mg Tablet, 5 MG GT DAILY Metformin HCl (Metformin HCl) 500 Mg Tablet, 1,000 MG PO BID BREAKFAST AND DINNER Metformin HCl (Metformin HCl) 500 Mg Tablet, 500 MG PO DAILY @ NOON Saxagliptin HCl (Onglyza) 5 Mg Tablet, 5 MG PO DAILY Scheduled PRN Magnesium Hydroxide (Milk of Magnesia) 400 Mg/5 Ml Oral.susp, 2,400 MG PO DAILY PRN for CONSTIPATION Sennosides/Docusate Sodium (Senna Plus Tablet) 1 Each Tablet, 1 TAB PO BID PRN for CONSTIPATION Allergies Coded Allergies: morphine (Verified Allergy, Unknown, 05/17/20) Penicillins (Verified Adverse Reaction, Unknown, 05/17/20) A-FIB/CHADSVASC A-FIB History Current/History of A-Fib/PAF?: No ENRIQUE SERRANO MD May 17, 2020 14:28
[2020-05-17] MEDS ORDERED: SENOKOT S TAB PO PRN (14:45)
--- NOTE | 2020-05-17 14:47 | REP ---
DEEP VENOUS ULTRASONOGRAPHY BILATERAL THIGHS, RULE OUT DVT: REASON: Pain and swelling. TECHNIQUE: Multiple ultrasonographic images of the deep venous structures of the thigh were obtained from the common femoral vein to the popliteal vein along with Doppler interrogation and color flow Doppler images. FINDINGS: There is no abnormal echogenic material seen within any of the visualized deep venous structures that would suggest acute thrombosis. Coaptation is unremarkable throughout. Doppler interrogation shows an expected response to respiratory variability and augmentation. The color flow images show what appears to be a normal vascular pattern throughout. IMPRESSION: There is no ultrasonographic evidence of deep venous thrombosis involving any of the visualized deep venous structures of the bilateral thighs, as described above. The exam is limited on the left due to the patient's discomfort and edema seen throughout the exam. Although the technologist has indicated that there was an inability to compress the popliteal vein due to the edema, color Doppler imaging showed good color flow throughout. Electronically Signed by Jhonny Tovar DO 05/17/2020 02:50 P
[2020-05-17 15:00] VITALS: BP 121/69
[2020-05-17] MEDS: ACETAMINOPHEN TAB 650MG DOSE (2X325MG) PO PRN (15:56)
[2020-05-17] MEDS: HumaLOG INSULIN (NovoLOG) PER UNIT SC SCH ×2 (17:39→20:59)
--- NOTE | 2020-05-17 19:14 | ECGEPIP ---
[facility] - ED Test Date: 2020-05-17 Pat Name: KEITH WADE Department: Room: - Gender: Female Angiography Technologist: : 1940 Requested By: ANGEL Enriquez Order Number: [id number] Reading MD: Trell Perez Measurements Intervals Mereta Rate: 90 P: 31 CA: 155 QRS: -3 QRSD: 96 T: 140 QT: 336 QTc: 411 Interpretive Statements SINUS RHYTHM POSSIBLE INCOMPLETE RIGHT BUNDLE BRANCH BLOCK POSSIBLE INFERIOR MYOCARDIAL INFARCTION, PROBABLY OLD SIMILAR TO 11/09/17 Electronically Signed on 05-17-2020 19:13:58 EDT by Trell Perez
[2020-05-17] MEDS: FUROSEMIDE 40MG/4ML VIAL (J1940) IV SCH (20:15)
[2020-05-17] MEDS: NYSTATIN 100,000 UNITS/GM TOPICAL PWD 15 GM TOP SCH (20:15)
[2020-05-17 22:00] VITALS: BP 100/60
[2020-05-18] MEDS: VANCOMYCIN HCL 1,000 MG, VIAL MATE ADAPTER 1 EACH in D5W 250 ML IV SCH ×2 (01:01→13:06)
[2020-05-18 06:00] VITALS: BP 106/58
[2020-05-18 06:11] LABS: HEMATOCRIT 36.1 % (36.0-47.0); HEMOGLOBIN 10.8 g/dl (12.0-15.5); MEAN CORPUSCULAR HEMOGLOBIN 25.5 pg (27.0-33.0); MEAN CORPUSCULAR HGB CONC 29.9 g/dl (32.0-36.5); MEAN CORPUSCULAR VOLUME 85.3 fl (80.0-96.0); PLATELET COUNT, AUTOMATED 226 10^3/uL (150-450); RED BLOOD COUNT 4.23 10^6/uL (4.00-5.40); WHITE BLOOD COUNT 13.8 10^3/uL (4.0-10.0)
[2020-05-18 06:35] LABS: CALCIUM LEVEL 8.2 MG/DL (8.8-10.2); CREATININE FOR GFR 1.16 MG/DL (0.55-1.30); GLOMERULAR FILTRATION RATE 47.9 (>32); POTASSIUM SERUM 3.5 MEQ/L (3.5-5.1)
[2020-05-18] MEDS: HumaLOG INSULIN (NovoLOG) PER UNIT SC SCH ×4 (07:30→21:00)
[2020-05-18] MEDS: FUROSEMIDE 40MG/4ML VIAL (J1940) IV SCH ×2 (09:00→21:21)
[2020-05-18] MEDS ORDERED: atenoloL 50 MG TAB PO SCH (09:00)
[2020-05-18] MEDS: ASPIRIN 81 MG ENTERIC TAB PO SCH (09:21)
[2020-05-18] MEDS: ENOXAPARIN 40MG/0.4ML SYRINGE (J1650 PER 10MG) SC SCH (09:22)
[2020-05-18] MEDS: NYSTATIN 100,000 UNITS/GM TOPICAL PWD 15 GM TOP SCH ×2 (09:22→21:20)
[2020-05-18 14:00] VITALS: BP 101/65
--- NOTE | 2020-05-18 19:16 | IPNPDOC ---
Date Seen The patient was seen on 05/18/20. Progress Note SUBJECTIVE: Patient offered no complaints this morning. Denies any chest pain, SOB, fever or chills. She seem to be sleeping everytime she is seen. Does wake up and talk but sleeps when no one is around. BP soft this morning, Atenolol and AM dose of Lasix held. LE edema still persistent. WBC improved 19.1 down to 13.8 today. OBJECTIVE PHYSICAL EXAMINATION: VITAL SIGNS: Please see below. General: Alert, some confusion Eyes: Normal sclera, EOMI HENT: Atraumatic Cardiovascular: Normal rate, normal rhythm. 3+ pitting edema b/l. Pulmonary: Clear to auscultation b/l, no wheezing GI: Soft, nontender, nondistended Skin: LLE erythema up to groin, worse below knees with several drained blisters. Neuro: CN grossly intact. No focal deficits. Somewhat confused, does not answer all questions appropriately or at all. LABORATORY DATA, IMAGING STUDIES, MICROBIOLOGY: Please see below. IMAGING: CXR- CHF pattern with cardiomegaly. Venous doppler-Follow up report. MICROBIOLOGY: Please see below. ASSESSMENT AND PLAN: 1. Sepsis 2/2 LLE cellulitis - 2/2 persistent fluid overload. Likely undiagnosed congestive heart failure. - Erythema throughout LLE up to groin worse below the knees with 2-3+ pitting edema and several drained blisters. - Blood cultures obtained, LA 4.4 and WBC 19 on presentation. - Patient fluid overload, would hold off on IVF at this time. Continue to mon itor closely. 2. Suspect acute on chronic CHF of unknown type - Obtain ECHO. - Start with lasix 40mg IV BID. Patient diuretic naive, try not to be too aggressive. - Monitor I/O. Fluid restriction along with daily weights. - BNP 4800. 3. DM - Hold metformin. Continue with ISS. - Add levemir if needed. 4. HTN - BP controlled on atenolol. 5. CAD? - Patient and denies. - c/w ASA. 6. Dementia DVT ppx: Lovenox and SCD Code status: Full code VS, I&O, 24H, Fishbone Vital Signs/I&O Vital Signs Date Time Temp Pulse Resp B/P (MAP) Pulse Ox O2 Delivery O2 Flow Rate FiO2 05/18/20 14:00 98.9 67 19 101/65 (77) 98 Room Air I&O- Last 24 Hours up to 6 AM 05/18/20 06:00 Intake Total 760 ml Output Total 2325 ml Balance -1565 ml Laboratory Data 24H LABS Laboratory Tests 2 05/17/20 20:51: Bedside Glucose (Misc Panel) 115H 05/18/20 05:35: Nucleated Red Blood Cells % (auto) 0.0, Anion Gap 9, Glomerular Filtration Rate 47.9, Calcium Level 8.2L 05/18/20 07:04: Bedside Glucose (Misc Panel) 63L 05/18/20 11:28: Bedside Glucose (Misc Panel) 100 05/18/20 11:52: Vancomycin Level Trough 9.2L 05/18/20 16:18: Bedside Glucose (Misc Panel) 76L CBC/BMP Laboratory Tests 05/18/20 05:35 Microbiology Microbiology 05/17/20 Blood Culture - Preliminary, Resulted No growth after 24 hours . All specim... 05/17/20 Blood Culture - Preliminary, Resulted No growth after 24 hours . All specim... ENRIQUE SERRANO MD May 18, 2020 19:16
[2020-05-18 22:00] VITALS: BP 131/73
--- NOTE | 2020-05-18 23:43 | ECHO ---
DATE OF PROCEDURE: 05/18/2020 REFERRING PHYSICIAN: Dr. Omari Grande INDICATION: Dyspnea. HEIGHT: 155 cm WEIGHT: 93 kg 2D MEASUREMENTS: Left atrium: 4.3 cm Aortic root: 3.1 cm Ventricular septum: 0.86 cm Posterior wall: 0.86 cm Left ventricle diastole: 4.8 cm Aortic annulus: 1.8 cm Inferior vena cava: 1.9 cm with less than 50% respiratory variation. DOPPLER MEASUREMENTS: No aortic stenosis. No aortic regurgitation. Aortic valve velocity: 103 cm/s LVOT velocity: 65.3 cm/s LVOT VTI: 12.1 cm Mild-moderate mitral regurgitation. No mitral stenosis. Mitral E velocity: 102 cm/s Mitral A velocity: Technically difficult Mitral deceleration time: 116 ms Moderate tricuspid regurgitation. Estimated right ventricle systolic pressure: 41-46 mmHg assuming a right atrial pressure of 10-15 mmHg. Trace pulmonic regurgitation. MITRAL ANNULAR TISSUE DOPPLER: E prime septal: 5.0 cm/s E prime lateral: 7.51 cm/s DESCRIPTION: Rhythm was sinus. This was a moderately technically difficult echocardiogram. This was a 2D, M-mode, color flow Doppler and pulse wave Doppler examination and included mitral annular tissue Doppler. CONCLUSIONS: 1. Normal left ventricle internal dimensions and wall thickness. Moderate global left ventricular (LV) hypokinesis. Severe reduction in overall LV systolic function. Left ventricular ejection fraction (LVEF) 30% by visual estimate. Presence of LV diastolic dysfunction but difficult to quantify as the mitral A wave was absent. 2. Moderate left atrial dilatation by visual assessment from the apical four-chamber view. 3. Suggestive of moderate elevation of estimated right ventricle systolic pressure. Moderate tricuspid regurgitation. Normal right ventricle size and systolic function. 4. Presence of a small secundum atrial septal defect with left atrium to right atrium shunting of a small degree as judged by color flow Doppler. 5. Moderate mitral annular calcification. Mild-moderate mitral regurgitation. No mitral stenosis. 6. Mild aortic valve sclerosis of a 3-cusp aortic valve. No aortic regurgitation. 7. No pericardial effusion.
[2020-05-19] MEDS: VANCOMYCIN HCL 1,000 MG, VIAL MATE ADAPTER 1 EACH in D5W 250 ML IV SCH (00:38)
[2020-05-19] MEDS: ACETAMINOPHEN TAB 650MG DOSE (2X325MG) PO PRN (02:56)
[2020-05-19 06:00] VITALS: BP 144/83
[2020-05-19] MEDS: HumaLOG INSULIN (NovoLOG) PER UNIT SC SCH ×4 (07:30→20:44)
[2020-05-19 08:10] LABS: HEMATOCRIT 37.5 % (36.0-47.0); HEMOGLOBIN 11.3 g/dl (12.0-15.5); MEAN CORPUSCULAR HEMOGLOBIN 25.6 pg (27.0-33.0); MEAN CORPUSCULAR HGB CONC 30.1 g/dl (32.0-36.5); PLATELET COUNT, AUTOMATED 239 10^3/uL (150-450); RED BLOOD COUNT 4.41 10^6/uL (4.00-5.40); WHITE BLOOD COUNT 9.5 10^3/uL (4.0-10.0)
[2020-05-19 08:41] LABS: CREATININE FOR GFR 1.04 MG/DL (0.55-1.30); GLOMERULAR FILTRATION RATE 54.3 (>32); POTASSIUM SERUM 3.4 MEQ/L (3.5-5.1)
[2020-05-19] MEDS: ENOXAPARIN 40MG/0.4ML SYRINGE (J1650 PER 10MG) SC SCH (08:59)
[2020-05-19] MEDS: NYSTATIN 100,000 UNITS/GM TOPICAL PWD 15 GM TOP SCH ×2 (09:00→20:48)
[2020-05-19] MEDS: FUROSEMIDE 40MG/4ML VIAL (J1940) IV SCH ×2 (09:02→20:47)
[2020-05-19] MEDS: ASPIRIN 81 MG ENTERIC TAB PO SCH (09:02)
[2020-05-19] MEDS: VANCOMYCIN HCL 750 MG, VIAL MATE ADAPTER 1 EACH in D5W 250 ML IV SCH (13:26)
[2020-05-19] MEDS ORDERED: POTASSIUM CHLORIDE 10 MEQ SR TABLET PO ONE (13:45)
[2020-05-19 14:00] VITALS: BP 106/63
[2020-05-19] MEDS: VANCOMYCIN HCL 500 MG in D5W MINI-BAG PLUS 100 ML IV SCH (15:15)
[2020-05-19] MEDS ORDERED: HALOPERIDOL 5MG/ML VIAL (J1630 PER 1) IV ONE (19:00)
--- NOTE | 2020-05-19 19:05 | IPNPDOC ---
Date Seen The patient was seen on 05/19/20. Progress Note SUBJECTIVE: Patient comfortable and offered no complaints this morning. BP still somewhat labile/low at times. LE edema persistent but erythema slightly improved. Reportedly had severe delerium/confusion during the day and attempted to remove riojas several times. OBJECTIVE PHYSICAL EXAMINATION: VITAL SIGNS: Please see below. General: Alert, some confusion Eyes: Normal sclera, EOMI HENT: Atraumatic Cardiovascular: Normal rate, normal rhythm. 3+ pitting edema b/l. Pulmonary: Clear to auscultation b/l, no wheezing GI: Soft, nontender, nondistended Skin: LLE erythema up to groin, worse below knees. Neuro: CN grossly intact. No focal deficits. Somewhat confused, does not answer all questions appropriately or at all. LABORATORY DATA, IMAGING STUDIES, MICROBIOLOGY: Please see below. IMAGING: CXR- CHF pattern with cardiomegaly. Venous doppler-Follow up report. MICROBIOLOGY: Please see below. ASSESSMENT AND PLAN: 1. Sepsis 2/2 LLE cellulitis - 2/2 persistent fluid overload. Likely undiagnosed congestive heart failure. - Erythema throughout LLE up to groin worse below the knees with 3+ pitting edema and several drained blisters. - Blood cultures obtained, LA 4.4 and WBC 19 on presentation. resolved. - Patient fluid overload, would hold off on IVF at this time. Continue to monitor closely. 2. 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 - Start with lasix 40mg IV BID. Patient diuretic naive, try not to be too aggressive, BP borderline. - Monitor I/O. Fluid restriction along with daily weights. - BNP 4800. Discussed with Dr. Pastor, can refer to him once discharged. Please text him name before she leaves. - Recommend starting ACEI and BB but one at a time due to BP. 3. DM - Hold metformin. Continue with ISS. - Add levemir if needed. 4. HTN - BP controlled on atenolol. 5. CAD? - Patient and denies. - c/w ASA. 6. Dementia - Severe and agitated at time. - Started on seroquel. add 1:1 DVT ppx: Lovenox and SCD Code status: Full code VS, I&O, 24H, Fishbone Vital Signs/I&O Vital Signs Date Time Temp Pulse Resp B/P (MAP) Pulse Ox O2 Delivery O2 Flow Rate FiO2 05/19/20 14:00 98.2 83 19 106/63 (77) 99 Room Air I&O- Last 24 Hours up to 6 AM 05/19/20 06:00 Intake Total 1500 ml Output Total 6880 ml Balance -5380 ml Laboratory Data 24H LABS Laboratory Tests 2 05/18/20 20:49: Bedside Glucose (Misc Panel) 104 05/19/20 07:25: Bedside Glucose (Misc Panel) 95 05/19/20 07:49: Nucleated Red Blood Cells % (auto) 0.0, Anion Gap 8, Glomerular Filtration Rate 54.3, Calcium Level 8.0L 05/19/20 11:20: Bedside Glucose (Misc Panel) 157H 05/19/20 12:06: Vancomycin Level Trough 16.8 05/19/20 16:11: Bedside Glucose (Misc Panel) 218H CBC/BMP Laboratory Tests 05/19/20 07:49 Microbiology Microbiology 05/17/20 Blood Culture - Preliminary, Resulted No Growth after 48 hours. All Specime... 05/17/20 Blood Culture - Preliminary, Resulted No Growth after 48 hours. All Specime... ENRIQUE SERRANO MD May 19, 2020 19:04
[2020-05-19] MEDS: QUEtiapine FUMARATE 12.5 MG HALF-TAB PO SCH (20:48)
[2020-05-19 22:00] VITALS: BP 124/73
[2020-05-20 06:00] VITALS: BP 127/74
[2020-05-20 06:25] LABS: HEMATOCRIT 37.4 % (36.0-47.0); HEMOGLOBIN 11.4 g/dl (12.0-15.5); MEAN CORPUSCULAR HEMOGLOBIN 25.9 pg (27.0-33.0); MEAN CORPUSCULAR HGB CONC 30.5 g/dl (32.0-36.5); MEAN CORPUSCULAR VOLUME 84.8 fl (80.0-96.0); PLATELET COUNT, AUTOMATED 239 10^3/uL (150-450); RED BLOOD COUNT 4.41 10^6/uL (4.00-5.40); WHITE BLOOD COUNT 7.5 10^3/uL (4.0-10.0)
[2020-05-20] MEDS: VANCOMYCIN HCL 750 MG, VIAL MATE ADAPTER 1 EACH in D5W 250 ML IV SCH (06:39)
[2020-05-20 06:46] LABS: BLOOD UREA NITROGEN 12 MG/DL (7-18); CARBON DIOXIDE LEVEL 29 MEQ/L (21-32); CHLORIDE LEVEL 109 MEQ/L (98-107); CREATININE FOR GFR 0.84 MG/DL (0.55-1.30); GLOMERULAR FILTRATION RATE > 60.0 (>32); GLUCOSE, FASTING 102 MG/DL (70-100); POTASSIUM SERUM 3.2 MEQ/L (3.5-5.1); SODIUM LEVEL 144 MEQ/L (136-145)
[2020-05-20] MEDS: HumaLOG INSULIN (NovoLOG) PER UNIT SC SCH ×4 (07:30→20:30)
[2020-05-20] MEDS: CARVedilol 3.125 MG TAB PO SCH ×2 (08:22→20:29)
[2020-05-20] MEDS: ENOXAPARIN 40MG/0.4ML SYRINGE (J1650 PER 10MG) SC SCH (08:22)
[2020-05-20] MEDS: FUROSEMIDE 40MG/4ML VIAL (J1940) IV SCH ×2 (08:23→20:30)
[2020-05-20] MEDS: ASPIRIN 81 MG ENTERIC TAB PO SCH (08:23)
[2020-05-20] MEDS: VANCOMYCIN HCL 500 MG in D5W MINI-BAG PLUS 100 ML IV SCH (08:23)
[2020-05-20] MEDS: NYSTATIN 100,000 UNITS/GM TOPICAL PWD 15 GM TOP SCH ×2 (08:24→20:30)
[2020-05-20] MEDS: POTASSIUM CHLORIDE 10 MEQ SR TABLET PO SCH ×2 (12:49→20:28)
[2020-05-20 14:00] VITALS: BP 123/66
--- NOTE | 2020-05-20 19:39 | IPNPDOC ---
Date Seen The patient was seen on 05/20/20. Progress Note SUBJECTIVE: Patient seen and examined at bedside. Patient confused, but denies any specific complaints. OBJECTIVE PHYSICAL EXAMINATION: VITAL SIGNS: Please see below. GENERAL: Confused laying in bed in no acute distress CARDIOVASCULAR: RRR, normal S1/2 RESPIRATORY: CTA B/L, no W/R/R ABDOMINAL: Soft, nontender, nondistended EXTREMITIES: 2+ lower extremity edema bilaterally. Intact distal pulses NEUROLOGICAL:, Normal speech, no focal deficits appreciated, though exam limited by mental status PSYCHOLOGICAL: Confused, normal mood LABORATORY DATA, IMAGING STUDIES, MICROBIOLOGY: Please see below. DVT prophylaxis ordered?: Lovenox ASSESSMENT AND PLAN: Patient is 80 year old female with dementia, DM, HTN, HLD, CAD? presented to the ER with complaints of LLE swelling and pain found to have CHF exacerbation with elevated BNP as well as LLE cellulitis. #Sepsis 2/2 LLE cellulitis - 2/2 persistent fluid overload. Likely undiagnosed congestive heart failure. - Erythema and swelling improved - f/u Blood cultures, LA 4.4 and WBC 19 on presentation. resolved. - Patient fluid overload, would hold off on IVF at this time. Continue to monitor closely. 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 - Cont. lasix 40mg IV BID. Patient diuretic naive, try not to be too aggressive, BP borderline. - Monitor I/O. Fluid restriction along with daily weights. - BNP 4800. Discussed with Dr. Pastor, can refer to him once discharged. Please te xt him name before she leaves. - Recommend starting ACEI and BB but one at a time due to BP. #DM - Hold metformin. Continue with ISS. - Add levemir if needed. #HTN - BP controlled on atenolol. #CAD? - Patient and denies. - c/w ASA. #Dementia - Severe and agitated at time. - Started on seroquel. add 1:1 - reorient as needed DVT ppx: Lovenox and SCD Code status: Full code VS, I&O, 24H, Fishbone Vital Signs/I&O Vital Signs Date Time Temp Pulse Resp B/P (MAP) Pulse Ox O2 Delivery O2 Flow Rate FiO2 05/20/20 14:00 97.8 83 17 123/66 (85) 99 05/19/20 14:00 Room Air I&O- Last 24 Hours up to 6 AM 05/20/20 06:00 Intake Total 1130 ml Output Total 5525 ml Balance -4395 ml Laboratory Data 24H LABS Laboratory Tests 2 05/19/20 20:37: Bedside Glucose (Misc Panel) 112H 05/20/20 05:49: Nucleated Red Blood Cells % (auto) 0.0, Anion Gap 6L, Glomerular Filtration Rate > 60.0, Calcium Level 8.0L 05/20/20 11:44: Bedside Glucose (Misc Panel) 212H 05/20/20 16:24: Bedside Glucose (Misc Panel) 154H CBC/BMP Laboratory Tests 05/20/20 05:49 Microbiology Microbiology 05/17/20 Blood Culture - Preliminary, Resulted No Growth after 72 hours. All specime... 05/17/20 Blood Culture - Preliminary, Resulted No Growth after 72 hours. All specime... DONALDO KUMAR MD May 20, 2020 19:39
[2020-05-20] MEDS: QUEtiapine FUMARATE 12.5 MG HALF-TAB PO SCH (20:28)
[2020-05-20] MEDS: ACETAMINOPHEN TAB 650MG DOSE (2X325MG) PO PRN (20:30)
[2020-05-20 22:00] VITALS: BP 124/82
[2020-05-21] MEDS: VANCOMYCIN HCL 750 MG, VIAL MATE ADAPTER 1 EACH in D5W 250 ML IV SCH (00:48)
[2020-05-21] MEDS: VANCOMYCIN HCL 500 MG in D5W MINI-BAG PLUS 100 ML IV SCH (02:32)
[2020-05-21 06:00] VITALS: BP 121/81
[2020-05-21 06:19] LABS: HEMATOCRIT 38.5 % (36.0-47.0); HEMOGLOBIN 11.5 g/dl (12.0-15.5); MEAN CORPUSCULAR HEMOGLOBIN 25.6 pg (27.0-33.0); MEAN CORPUSCULAR HGB CONC 29.9 g/dl (32.0-36.5); MEAN CORPUSCULAR VOLUME 85.6 fl (80.0-96.0); PLATELET COUNT, AUTOMATED 262 10^3/uL (150-450); WHITE BLOOD COUNT 9.1 10^3/uL (4.0-10.0)
[2020-05-21 06:32] LABS: CALCIUM LEVEL 8.1 MG/DL (8.8-10.2); CREATININE FOR GFR 1.12 MG/DL (0.55-1.30); GLOMERULAR FILTRATION RATE 49.8 (>32); POTASSIUM SERUM 3.5 MEQ/L (3.5-5.1)
[2020-05-21] MEDS: FUROSEMIDE 40MG/4ML VIAL (J1940) IV SCH (08:49)
[2020-05-21] MEDS: ASPIRIN 81 MG ENTERIC TAB PO SCH (08:49)
[2020-05-21] MEDS: POTASSIUM CHLORIDE 10 MEQ SR TABLET PO SCH (08:49)
[2020-05-21] MEDS: ENOXAPARIN 40MG/0.4ML SYRINGE (J1650 PER 10MG) SC SCH (08:49)
[2020-05-21] MEDS: HumaLOG INSULIN (NovoLOG) PER UNIT SC SCH (08:50)
[2020-05-21] MEDS: NYSTATIN 100,000 UNITS/GM TOPICAL PWD 15 GM TOP SCH (08:50)
[2020-05-21 08:52] VITALS: BP 112/61
[2020-05-21] MEDS: CARVedilol 3.125 MG TAB PO SCH (08:52)
[2020-05-23] MEDS ORDERED: MEROPENEM 1GM IN NACL 0.9% 50ML IVBAG (J2185 PER 100MG) ONE ×2 (03:37→15:44)
[2020-05-23] MEDS ORDERED: LOSARTAN 25 MG TAB As Ordered ONE (08:47)
[2020-05-23] MEDS ORDERED: ASPIRIN 81 MG ENTERIC TAB ONE (08:47)
[2020-05-23] MEDS ORDERED: FUROSEMIDE 40 MG TAB ONE (08:47)
[2020-05-23] MEDS ORDERED: FUROSEMIDE 40 MG TAB As Ordered ONE (08:47)
[2020-05-23] MEDS ORDERED: ACETAMINOPHEN TAB 650MG DOSE (2X325MG) ONE ×3 (08:47→21:27)
[2020-05-23] MEDS ORDERED: ENOXAPARIN 40MG/0.4ML SYRINGE (J1650 PER 10MG) ONE (08:47)
[2020-05-23] MEDS ORDERED: CARVedilol 3.125 MG TAB ONE ×2 (08:47→21:27)
[2020-05-23] MEDS ORDERED: HumaLOG INSULIN (NovoLOG) PER UNIT ONE ×4 (08:47→21:27)
[2020-05-23] MEDS ORDERED: LOSARTAN 25 MG TAB ONE (08:47)
[2020-05-23] MEDS ORDERED: APPROPRIATE DILUENT As Ordered ONE (15:44)
[2020-05-23] MEDS ORDERED: MEROPENEM 1GM IN NACL 0.9% 50ML IVBAG (J2185 PER 100MG) As Ordered ONE (15:44)
[2020-05-23] MEDS ORDERED: QUEtiapine FUMARATE 25 MG TAB ONE (21:27)
[2020-05-23] MEDS ORDERED: QUEtiapine FUMARATE 25 MG TAB As Ordered ONE (21:28)
[2020-05-24] MEDS ORDERED: APPROPRIATE DILUENT As Ordered ONE ×2 (02:09→14:57)
[2020-05-24] MEDS ORDERED: LOSARTAN 25 MG TAB ONE (02:09)
[2020-05-24] MEDS ORDERED: MEROPENEM 1GM IN NACL 0.9% 50ML IVBAG (J2185 PER 100MG) As Ordered ONE ×2 (02:09→14:57)
[2020-05-24] MEDS ORDERED: ACETAMINOPHEN TAB 650MG DOSE (2X325MG) ONE ×2 (02:09→06:10)
[2020-05-24] MEDS ORDERED: SENOKOT S TAB ONE (02:09)
[2020-05-24] MEDS ORDERED: HumaLOG INSULIN (NovoLOG) PER UNIT ONE ×4 (02:09→09:03)
[2020-05-24] MEDS ORDERED: FUROSEMIDE 40 MG TAB ONE (02:09)
[2020-05-24] MEDS ORDERED: CARVedilol 3.125 MG TAB ONE ×2 (02:09→06:10)
[2020-05-24] MEDS ORDERED: MEROPENEM 1GM IN NACL 0.9% 50ML IVBAG (J2185 PER 100MG) ONE ×2 (02:09→02:57)
[2020-05-24] MEDS ORDERED: LORazepam 1 MG TAB ONE (06:10)
[2020-05-24] MEDS ORDERED: QUEtiapine FUMARATE 25 MG TAB ONE (06:10)
[2020-05-24] MEDS ORDERED: FUROSEMIDE 40 MG TAB As Ordered ONE (09:02)
[2020-05-24] MEDS ORDERED: ENOXAPARIN 40MG/0.4ML SYRINGE (J1650 PER 10MG) ONE (09:03)
[2020-05-24] MEDS ORDERED: LOSARTAN 25 MG TAB As Ordered ONE (09:03)
[2020-05-24] MEDS ORDERED: ASPIRIN 81 MG ENTERIC TAB ONE (09:03)
[2020-05-24] MEDS ORDERED: QUEtiapine FUMARATE 25 MG TAB As Ordered ONE (20:47)
[2020-05-24] MEDS ORDERED: LORazepam 1 MG TAB As Ordered ONE (21:30)
[2020-05-25] MEDS ORDERED: MEROPENEM 1GM IN NACL 0.9% 50ML IVBAG (J2185 PER 100MG) ONE ×2 (01:26→04:01)
[2020-05-25] MEDS ORDERED: ACETAMINOPHEN TAB 650MG DOSE (2X325MG) ONE (01:26)
[2020-05-25] MEDS ORDERED: HumaLOG INSULIN (NovoLOG) PER UNIT ONE ×3 (01:26→05:32)
[2020-05-25] MEDS ORDERED: ENOXAPARIN 40MG/0.4ML SYRINGE (J1650 PER 10MG) ONE (04:01)
[2020-05-25] MEDS ORDERED: ASPIRIN 81 MG ENTERIC TAB ONE (04:01)
[2020-05-25] MEDS ORDERED: LOSARTAN 25 MG TAB ONE (04:01)
[2020-05-25] MEDS ORDERED: MEROPENEM 1GM IN NACL 0.9% 50ML IVBAG (J2185 PER 100MG) As Ordered ONE ×2 (04:01→14:25)
[2020-05-25] MEDS ORDERED: CARVedilol 3.125 MG TAB ONE ×2 (04:01→05:32)
[2020-05-25] MEDS ORDERED: FUROSEMIDE 40 MG TAB ONE (04:01)
[2020-05-25] MEDS ORDERED: APPROPRIATE DILUENT As Ordered ONE ×2 (04:01→14:25)
[2020-05-25] MEDS ORDERED: QUEtiapine FUMARATE 25 MG TAB ONE (05:32)
[2020-05-25] MEDS ORDERED: zolPIDEM TARTRATE 5 MG TAB ONE (05:32)
[2020-05-25] MEDS ORDERED: FUROSEMIDE 40 MG TAB As Ordered ONE (10:01)
[2020-05-25] MEDS ORDERED: LOSARTAN 25 MG TAB As Ordered ONE (10:01)
[2020-05-25] MEDS ORDERED: QUEtiapine FUMARATE 25 MG TAB As Ordered ONE (21:09)
[2020-05-25] MEDS ORDERED: zolPIDEM TARTRATE 5 MG TAB As Ordered ONE (21:09)
[2020-05-26] MEDS ORDERED: LORazepam 1 MG TAB ONE ×2 (03:02→12:38)
[2020-05-26] MEDS ORDERED: APPROPRIATE DILUENT As Ordered ONE (03:02)
[2020-05-26] MEDS ORDERED: MEROPENEM 1GM IN NACL 0.9% 50ML IVBAG (J2185 PER 100MG) ONE (03:02)
[2020-05-26] MEDS ORDERED: MEROPENEM 1GM IN NACL 0.9% 50ML IVBAG (J2185 PER 100MG) As Ordered ONE (03:02)
[2020-05-26] MEDS ORDERED: ACETAMINOPHEN TAB 650MG DOSE (2X325MG) ONE ×4 (03:02→21:04)
[2020-05-26] MEDS ORDERED: LORazepam 1 MG TAB As Ordered ONE ×2 (03:04→12:38)
[2020-05-26] MEDS ORDERED: LOSARTAN 25 MG TAB As Ordered ONE (08:17)
[2020-05-26] MEDS ORDERED: ASPIRIN 81 MG ENTERIC TAB ONE (08:17)
[2020-05-26] MEDS ORDERED: FUROSEMIDE 40 MG TAB As Ordered ONE (08:17)
[2020-05-26] MEDS ORDERED: ENOXAPARIN 40MG/0.4ML SYRINGE (J1650 PER 10MG) ONE (08:17)
[2020-05-26] MEDS ORDERED: FUROSEMIDE 40 MG TAB ONE (08:17)
[2020-05-26] MEDS ORDERED: CARVedilol 3.125 MG TAB ONE ×2 (08:17→21:04)
[2020-05-26] MEDS ORDERED: LOSARTAN 25 MG TAB ONE (08:17)
[2020-05-26] MEDS ORDERED: HumaLOG INSULIN (NovoLOG) PER UNIT ONE ×2 (08:17→17:28)
[2020-05-26] MEDS ORDERED: CEFDINIR 300 MG CAP (OMNICEF) ONE ×2 (12:38→21:04)
[2020-05-26] MEDS ORDERED: CEFDINIR 300 MG CAP (OMNICEF) As Ordered ONE ×2 (12:44→21:07)
[2020-05-26] MEDS ORDERED: zolPIDEM TARTRATE 5 MG TAB ONE (21:04)
[2020-05-26] MEDS ORDERED: QUEtiapine FUMARATE 25 MG TAB ONE (21:04)
[2020-05-26] MEDS ORDERED: zolPIDEM TARTRATE 5 MG TAB As Ordered ONE (21:05)
[2020-05-26] MEDS ORDERED: QUEtiapine FUMARATE 25 MG TAB As Ordered ONE (21:07)
[2020-05-27] MEDS ORDERED: LORazepam 1 MG TAB ONE ×2 (02:57→11:13)
[2020-05-27] MEDS ORDERED: LORazepam 1 MG TAB As Ordered ONE ×2 (02:57→11:13)
[2020-05-27] MEDS ORDERED: CEFDINIR 300 MG CAP (OMNICEF) As Ordered ONE ×2 (08:47→21:29)
[2020-05-27] MEDS ORDERED: CEFDINIR 300 MG CAP (OMNICEF) ONE ×2 (08:47→21:29)
[2020-05-27] MEDS ORDERED: ENOXAPARIN 40MG/0.4ML SYRINGE (J1650 PER 10MG) ONE (08:48)
[2020-05-27] MEDS ORDERED: HumaLOG INSULIN (NovoLOG) PER UNIT ONE ×3 (08:48→17:33)
[2020-05-27] MEDS ORDERED: LOSARTAN 25 MG TAB As Ordered ONE (08:48)
[2020-05-27] MEDS ORDERED: FUROSEMIDE 40 MG TAB As Ordered ONE (08:48)
[2020-05-27] MEDS ORDERED: FUROSEMIDE 40 MG TAB ONE (08:48)
[2020-05-27] MEDS ORDERED: ACETAMINOPHEN TAB 650MG DOSE (2X325MG) ONE (11:01)
[2020-05-27] MEDS ORDERED: QUEtiapine FUMARATE 25 MG TAB ONE (21:29)
[2020-05-27] MEDS ORDERED: CARVedilol 3.125 MG TAB ONE (21:29)
[2020-05-27] MEDS ORDERED: ACETAMINOPHEN 325 MG TAB ONE (21:29)
[2020-05-27] MEDS ORDERED: ACETAMINOPHEN 325 MG TAB As Ordered ONE (21:30)
[2020-05-27] MEDS ORDERED: QUEtiapine FUMARATE 25 MG TAB As Ordered ONE (21:30)
[2020-05-27] MEDS ORDERED: zolPIDEM TARTRATE 5 MG TAB As Ordered ONE (23:36)
[2020-05-27] MEDS ORDERED: zolPIDEM TARTRATE 5 MG TAB ONE (23:36)
[2020-05-28] MEDS ORDERED: FUROSEMIDE 40 MG TAB ONE (08:49)
[2020-05-28] MEDS ORDERED: CARVedilol 3.125 MG TAB ONE (08:49)
[2020-05-28] MEDS ORDERED: LOSARTAN 25 MG TAB ONE (08:49)
[2020-05-28] MEDS ORDERED: FUROSEMIDE 40 MG TAB As Ordered ONE (08:49)
[2020-05-28] MEDS ORDERED: LOSARTAN 25 MG TAB As Ordered ONE (08:49)
[2020-05-28] MEDS ORDERED: HumaLOG INSULIN (NovoLOG) PER UNIT ONE ×2 (08:49→12:43)
[2020-05-28] MEDS ORDERED: ENOXAPARIN 40MG/0.4ML SYRINGE (J1650 PER 10MG) ONE (08:49)
[2020-05-28] MEDS ORDERED: LORazepam 1 MG TAB As Ordered ONE (08:51)
[2020-05-28] MEDS ORDERED: LORazepam 1 MG TAB ONE (08:51)
[2020-05-28] MEDS ORDERED: hydrOXYzine 25 MG TAB As Ordered ONE (10:17)
[2020-05-28] MEDS ORDERED: hydrOXYzine 25 MG TAB ONE (10:17)
[2020-07-01 10:50] LABS: HEMATOCRIT 41.2 % (36.0-47.0); HEMOGLOBIN 12.8 g/dl (12.0-15.5); MEAN CORPUSCULAR HEMOGLOBIN 25.7 pg (27.0-33.0); MEAN CORPUSCULAR HGB CONC 31.1 g/dl (32.0-36.5); MEAN CORPUSCULAR VOLUME 82.7 fl (80.0-96.0); PLATELET COUNT, AUTOMATED 333 10^3/uL (150-450); RED BLOOD COUNT 4.98 10^6/uL (4.00-5.40); WHITE BLOOD COUNT 9.5 10^3/uL (4.0-10.0)
[2020-07-01 14:07] LABS: HEMATOCRIT 41.2 % (36.0-47.0); HEMOGLOBIN 12.4 g/dl (12.0-15.5); MEAN CORPUSCULAR HEMOGLOBIN 25.7 pg (27.0-33.0); MEAN CORPUSCULAR HGB CONC 30.1 g/dl (32.0-36.5); MEAN CORPUSCULAR VOLUME 85.3 fl (80.0-96.0); PLATELET COUNT, AUTOMATED 307 10^3/uL (150-450); RED BLOOD COUNT 4.83 10^6/uL (4.00-5.40); WHITE BLOOD COUNT 6.3 10^3/uL (4.0-10.0)
== END 2020-05-28 14:51 | DRG 871 ==
LOC: EDBD 11:02 → M ED 11:02 → M ED INP 14:09 → ENRESERV 14:25 → M MSPAV 15:11
PROVIDERS: ADMIT Student in an Organized Health Care Education/Training Program; ATTEND Internal Medicine
DX: A41.9 Sepsis, unspecified organism (principal); I50.33 Acute on chronic diastolic (congestive) heart failure; L03.116 Cellulitis of left lower limb; E11.9 Type 2 diabetes mellitus without complications; F03.90 Unspecified dementia, unspecified severity, without behavioral disturbance, psychotic disturbance, mood disturbance, and anxiety; I11.0 Hypertensive heart disease with heart failure; E78.5 Hyperlipidemia, unspecified; I25.10 Atherosclerotic heart disease of native coronary artery without angina pectoris; Z79.82 Long term (current) use of aspirin; Z79.84 Long term (current) use of oral hypoglycemic drugs; Z79.899 Other long term (current) drug therapy; Z88.0 Allergy status to penicillin; Z88.5 Allergy status to narcotic agent; Z11.59 Encounter for screening for other viral diseases

== ENCOUNTER → 2020-06-12 | Outpatient (REF) | payer MEDICARE, OTHER ==
[~2020-06-12] MED LIST changes: +ASPI-546 PO; -ASPI1TAB15 PO; +GLYB5TA GT; +MILKSUS3 PO; +OYST1TAB PO; +SENN-52 PO
[2020-09-05 06:46] LABS: CALCIUM LEVEL 8.3 MG/DL (8.8-10.2); CREATININE FOR GFR 1.03 MG/DL (0.55-1.30); GLOMERULAR FILTRATION RATE 54.9 (>32)
== END ==
LOC: SKLAB7 07:00
PROVIDERS: ATTEND Internal Medicine
DX: Z79.899 Other long term (current) drug therapy (principal)

== ENCOUNTER → 2020-06-18 | Outpatient (REF) | payer MEDICARE, OTHER ==
[2020-06-18 13:35] LABS: BLOOD UREA NITROGEN 18 MG/DL (7-18); CALCIUM LEVEL 8.9 MG/DL (8.8-10.2); CARBON DIOXIDE LEVEL 23 MEQ/L (21-32); CHLORIDE LEVEL 108 MEQ/L (98-107); CREATININE FOR GFR 0.95 MG/DL (0.55-1.30); GLOMERULAR FILTRATION RATE > 60.0 (>32); GLUCOSE, FASTING 136 MG/DL (70-100); POTASSIUM SERUM 3.9 MEQ/L (3.5-5.1); SODIUM LEVEL 139 MEQ/L (136-145)
== END ==
LOC: SKLAB7 07:25
PROVIDERS: ATTEND Internal Medicine
DX: Z79.899 Other long term (current) drug therapy (principal)

== ENCOUNTER → 2020-06-19 | Outpatient (REF) | payer MEDICARE, OTHER | LOC: SKLAB7 07:00 | PROVIDERS: ATTEND Internal Medicine | DX: Z79.899 Other long term (current) drug therapy (principal) ==

== ENCOUNTER → 2020-07-09 | Outpatient (REF) | payer MEDICARE, OTHER ==
[2020-07-09 09:02] LABS: CALCIUM LEVEL 8.8 MG/DL (8.8-10.2); CREATININE FOR GFR 1.01 MG/DL (0.55-1.30); GLOMERULAR FILTRATION RATE 56.1 (>32); POTASSIUM SERUM 4.4 MEQ/L (3.5-5.1)
[2020-07-09 09:10] LABS: HEMOGLOBIN A1c 7.6 %
== END ==
LOC: SKLAB7 07:00
PROVIDERS: ATTEND Internal Medicine
DX: I50.9 Heart failure, unspecified (principal); E11.9 Type 2 diabetes mellitus without complications

== ENCOUNTER → 2020-07-13 | Outpatient (REF) | payer MEDICARE, OTHER ==
[2020-07-13 08:08] LABS: CALCIUM LEVEL 8.7 MG/DL (8.8-10.2); CREATININE FOR GFR 1.11 MG/DL (0.55-1.30); GLOMERULAR FILTRATION RATE 50.3 (>32); POTASSIUM SERUM 3.6 MEQ/L (3.5-5.1)
== END ==
LOC: SKLAB7 07:00
PROVIDERS: ATTEND Internal Medicine
DX: I50.9 Heart failure, unspecified (principal)

== ENCOUNTER → 2020-07-16 | Outpatient (REF) | payer MEDICARE, OTHER ==
[2020-07-16 09:36] LABS: CALCIUM LEVEL 9.2 MG/DL (8.8-10.2); CREATININE FOR GFR 1.12 MG/DL (0.55-1.30); GLOMERULAR FILTRATION RATE 49.8 (>32); POTASSIUM SERUM 3.2 MEQ/L (3.5-5.1)
== END ==
LOC: SKLAB7 13:00
PROVIDERS: ATTEND Internal Medicine
DX: I50.9 Heart failure, unspecified (principal)

== ENCOUNTER → 2020-07-23 | Outpatient (REF) | payer MEDICARE, OTHER ==
[2020-07-23 08:31] LABS: CALCIUM LEVEL 9.3 MG/DL (8.8-10.2); CREATININE FOR GFR 1.11 MG/DL (0.55-1.30); GLOMERULAR FILTRATION RATE 50.3 (>32); POTASSIUM SERUM 3.9 MEQ/L (3.5-5.1)
== END ==
LOC: SKLAB7 07:00
PROVIDERS: ATTEND Internal Medicine
DX: I50.9 Heart failure, unspecified (principal)

== ENCOUNTER → 2020-09-10 | Outpatient (REF) ==
[2020-09-11 09:44] LABS: INFLUENZA A AMPLIFICATION NEGATIVE (NEGATIVE); INFLUENZA B AMPLIFICATION NEGATIVE (NEGATIVE)
== END ==
LOC: SKLAB7 13:54
PROVIDERS: ATTEND Internal Medicine
DX: Z20.828 Contact with and (suspected) exposure to other viral communicable diseases (principal)

== ENCOUNTER → 2020-09-16 | Outpatient (REF) | payer MEDICARE, OTHER ==
[~2020-09-16] MED LIST changes: -GLYB5TA GT; -GLYB5TA PO; +GLYB5TAB6 GT; +GLYB5TAB6 PO
== END ==
LOC: SKLAB7 09-15 15:17 → EDSTATUS 10-23 09:05
PROVIDERS: ATTEND Internal Medicine
DX: Z20.828 Contact with and (suspected) exposure to other viral communicable diseases (principal)

== ENCOUNTER → 2020-09-23 | Outpatient (REF) | payer MEDICARE, OTHER | LOC: SKLAB7 08:00 | PROVIDERS: ATTEND Internal Medicine | DX: Z20.828 Contact with and (suspected) exposure to other viral communicable diseases (principal) ==

== ENCOUNTER → 2020-09-30 | Outpatient (REF) | payer MEDICARE, OTHER | LOC: SKLAB7 08:00 | PROVIDERS: ATTEND Internal Medicine | DX: Z20.828 Contact with and (suspected) exposure to other viral communicable diseases (principal) ==

== ENCOUNTER → 2020-10-03 | Outpatient (REF) | payer MEDICARE, OTHER | LOC: SKLAB7 08:00 | PROVIDERS: ATTEND Internal Medicine | DX: Z20.828 Contact with and (suspected) exposure to other viral communicable diseases (principal) ==

== ENCOUNTER → 2020-10-07 | Outpatient (REF) | payer MEDICARE, OTHER ==
[~2020-10-07] MED LIST changes: +GLYB5TA GT; +GLYB5TA PO; -GLYB5TAB6 GT; -GLYB5TAB6 PO
== END ==
LOC: SKLAB7 08:29
PROVIDERS: ATTEND Internal Medicine
DX: Z20.828 Contact with and (suspected) exposure to other viral communicable diseases (principal)

== ENCOUNTER → 2020-10-13 | Outpatient (REF) | payer MEDICARE, OTHER ==
[2020-10-13 11:17] LABS: HEMOGLOBIN A1c 7.4 %
== END ==
LOC: SKLAB7 13:25
PROVIDERS: ATTEND Internal Medicine
DX: E11.9 Type 2 diabetes mellitus without complications (principal)

== ENCOUNTER → 2020-10-14 | Outpatient (REF) | payer MEDICARE, OTHER | LOC: SKLAB7 13:55 | PROVIDERS: ATTEND Internal Medicine | DX: Z20.828 Contact with and (suspected) exposure to other viral communicable diseases (principal) ==

== ENCOUNTER → 2020-10-21 | Outpatient (REF) | payer MEDICARE, OTHER | LOC: SKLAB7 07:00 | PROVIDERS: ATTEND Internal Medicine | DX: Z20.828 Contact with and (suspected) exposure to other viral communicable diseases (principal) ==

== ENCOUNTER → 2020-10-28 | Outpatient (REF) | payer MEDICARE, OTHER | LOC: SKLAB7 09:20 | PROVIDERS: ATTEND Internal Medicine | DX: Z20.828 Contact with and (suspected) exposure to other viral communicable diseases (principal) ==

== ENCOUNTER → 2020-11-04 | Outpatient (REF) | payer MEDICARE, OTHER | LOC: SKLAB7 07:00 | PROVIDERS: ATTEND Internal Medicine | DX: Z11.52 Encounter for screening for COVID-19 (principal) ==

== ENCOUNTER 2020-11-11 18:39 | Emergency (ER) | payer MEDICARE, OTHER ==
[~2020-11-11] VITALS: Ht 160 cm; Wt 118.2 kg
--- NOTE | 2020-11-11 21:18 | REPVR ---
PROCEDURE INFORMATION: Exam: CT Head Without Contrast Exam date and time: 11/11/2020 8:05 PM Age: 80 years old Clinical indication: Injury or trauma; Fall; Blunt trauma (contusions or hematomas); Additional info: Fall, vision loss in right eye TECHNIQUE: Imaging protocol: Computed tomography of the head without contrast. Radiation optimization: All CT scans at this facility use at least one of these dose optimization techniques: automated exposure control; mA and/or kV adjustment per patient size (includes targeted exams where dose is matched to clinical indication); or iterative reconstruction. COMPARISON: No relevant prior studies available. FINDINGS: Brain: There is no evidence of intracranial bleed. There is enlargement of the ventricles and cerebral sulci consistent with moderate atrophy. The enlargement of the ventricles could also be the result of communicating type hydrocephalus and clinical correlation would be important. There are patchy areas of low density in the periventricular white matter especially at the right centrum semi ovale probably the result of chronic ischemic changes. There is no evidence of mass effect. Bones/joints: There is no evidence of fracture. Paranasal sinuses: Clear paranasal sinuses. Mastoid air cells: Clear mastoid air cells. Soft tissues: There is severe soft tissue swelling over the left orbit floor of the orbits appear intact. IMPRESSION: 1. No evidence of fracture. 2. Severe soft tissue swelling over the left orbit in. 3. Enlargement of the ventricles probably the result of moderate diffuse atrophy. However, communicating type hydrocephalus cannot be excluded and clinical correlation would be important. Electronically signed by: Issac Simpson On 11/11/2020 21:18:10 PM
--- OUTSIDE RECORDS SUMMARY | 2020-11-11 21:21 | CCD ---
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 Name Role Phone Alvarez, Brooke Medina PA Unavailable Unavailable Alvarez, Brooke Gaon PA Unavailable Unavailable Alvarez, Brooke Leunglyn PA Unavailable Unavailable Alvarez, Brooke Leunglyn PA Unavailable Unavailable Alvarez, Brooke Carol PA Unavailable Unavailable Alvarez, Brooke Carol PA Unavailable Unavailable Alvarez, Brooke Carol PA Unavailable Unavailable Alvarez, Brooke Carol PA Unavailable Unavailable Alvarez, Brooke Carol PA Unavailable Unavailable Alvarez, Brooke Carol PA Unavailable Unavailable Re-disclosure Warning The records that you are about to access may contain information from federally-assisted alcohol or drug abuse programs. If such information is present, then the following federally mandated warning applies: This information has been disclosed to you from records protected by federal confidentiality rules (42 CFR part 2). The federal rules prohibit you from making any further disclosure of this information unless further disclosure is expressly permitted by the written consent of the person to whom it pertains or as otherwise permitted by 42 CFR part 2. A general authorization for the release of medical or other information is NOT sufficient for this purpose. The Federal rules restrict any use of the information to criminally investigate or prosecute any alcohol or drug abuse patient.The records that you are about to access may contain highly sensitive health information, the redisclosure of which is protected by Article 27-F of the [place] State Public Health law. If you continue you may have access to information: Regarding HIV / AIDS; Provided by facilities licensed or operated by the [facility] Office of Mental Health; or Provided by the [facility] Office for People With Developmental Disabilities. If such information is present, then the following [facility] mandated warning applies: This information has been disclosed to you from confidential records which are protected by state law. State law prohibits you from making any further disclosure of this information without the specific written consent of the person to whom it pertains, or as otherwise permitted by law. Any unauthorized further disclosure in violation of state law may result in a fine or assisted sentence or both. A general authorization for the release of medical or other information is NOT sufficient authorization for further disc losure. Family History Family Member Name Family Member Gender Family Member Status Date o f Status Description Data Source(s) Unknown Unknown Problem MEDENT ([facility] Unknown Male Problem MEDENT ([facility] ) Encounters Encounter Providers Location Date Indications Data Source(s ) Outpatient Attender: Carol almanza 04/29/2020 05:20:00 PM EDT MEDENT ([facility] Office Visit, [facility] Pt[facility] Level [address] [place] [address] 03/20/2020 12:00:00 AM EDT eCW1 ([facility]) [facility] [address] [place] [phone] 03/16/2020 12:00:00 AM EDT eCW1 ([facility]) Immunizations Vaccine Date Status Description Data Source(s) PNEUMOCOCCAL 23-VALENT POLYSACCHARIDE VACCINE 10/03/2019 12: 00:00 AM EST completed [facility] Medications Medication Brand Name Start Date Product Form Dose Route Admi nistrative Instructions Pharmacy Instructions Status Indications Reaction Description Data Source(s) 1 % 11/07/2019 12:00:00 AM EST drops,suspension 5 INSTILL 1 DROP IN THE RIGHT EYE FOUR TIMES A DAY INSTILL 1 DROP IN THE RIGHT EYE FOUR TIMES A DAY SOLD: 11/14/2019 [facility] 1 % 10/02/2019 12:00:00 AM EST drops,suspension 5 INSTILL 1 DROP IN THE RIGHT EYE FOUR TIMES A DAY INSTILL 1 DROP IN THE RIGHT EYE FOUR TIMES A DAY SOLD: 10/02/2019 [facility] 1 % 10/02/2019 12:00:00 AM EST drops,suspension 5 INSTILL 1 DROP IN THE RIGHT EYE FOUR TIMES A DAY INSTILL 1 DROP IN THE RIGHT EYE FOUR TIMES A DAY SOLD: 10/21/2019 [facility] Insurance Providers Payer name Policy type / Coverage type Policy ID Covered alliance party ID Covered alliance party's relationship to hinkle Policy Hinkle Plan Information MEDICARE [id number] SP [id number] [facility] [id number] SP [id number] [facility] [id number] HU2 [id number] UMR O [id number] P [id number] UMR O [id number] S [id number] MEDICARE C [id number] S [id number] [facility] [id number] SP [id number] MEDICARE [id number] SP [id number] A Medicare Medicare Primary [id number] Self [id number] Umr Commercial [id number] Family Dependent [id number] Umr Commercial [id number] Self [id number] Medicare Medicare Primary [id number] Self [id number] Umr (pr) Medigap Part B [id number] Family Dependent [id number] Umr (pr) Medigap Part B [id number] Self [id number] [place] [id number] Self [id number] [employer]OM[employer] [id number] SP [id number] POM[employer] [id number] HU2 [id number] [place] (pr) Medigap Part B [id number] Family Dependent [id number] [place] (pr) Medigap Part B [id number] Self [id number] Umr (pr) Medigap Part B [id number] Family Dependent [id number] [place] Primary [id number] Self [id number] POMCO [id number] HU2 [id number] POMCO [id number] SP [id number] MEDICARE [id number] SP [id number] A [place] (pr) Medigap Part B [id number] Family Dependent [id number] [place] (pr) Medigap Part B [id number] Self [id number] [place] Primary [id number] Self [id number] [place] (pr) Medigap Part B [id number] Family Dependent [id number] [place] (pr) Medigap Part B [id number] Self [id number] [place] Primary [id number] Self [id number] [employer] PPO O [id number] S [id number] MEDICARE C [id number] S [id number] A [employer] PPO O [id number] S [id number] [place] (pr) Medigap Part B [id number] Family Dependent [id number] [place] (pr) Medigap Part B [id number] Self [id number] [place] Primary [id number] Self [id number] [place] (pr) Medigap Part B [id number] Family Dependent [id number] [place] (pr) Medigap Part B [id number] Self [id number] [place] Primary [id number] Self [id number] [employer]OM[employer] [id number] SP [id number] [place] (pr) Medigap Part B [id number] Family Dependent [id number] [place] (pr) Medigap Part B [id number] Self [id number] [place] Primary [id number] Self [id number] [place] F [id number] SELF [id number] Medicare C [id number] SELF [id number] A MEDICARE [id number] SP [id number] [place] (pr) Medigap Part B [id number] Family Dependent [id number] [place] (pr) Medigap Part B [id number] Self [id number] Medicare [place] Primary [id number] Self [id number] [employer] PPO O [id number] S [id number] [employer] [id number] SP [id number] A Problems, Conditions, and Diagnoses Code Display Name Description Problem Type Effective Dates Data Source(s) F03.90 22410733 Dementia without beh avioral disturbance, unspecified dementia type Problem 04/07/2020 12:00:00 AM EDT eCW1 ([facility]) E78.2 [id number] Mixed hyperlipidemia Problem 03/20/2020 12:0 0:00 AM EDT eCW1 ([facility]) I11.9 52015851 Hypertensive heart disease without heart failure Problem 03/20/2020 12:00:00 AM EDT eCW1 ([facility]) E11.9 [id number] Type 2 diabetes gamaliel itus without complication, without long-term current use of insulin Problem 03/20/2020 12:00:00 AM EDT eCW1 ([facility]) Surgeries/Procedures Procedure Description Date Indications Data Source(s) THERAPEUTIC PX 1/> AREAS EACH 15 MIN EXERCISES 019 12:00:00 AM EST MEDENT ([facility]) X-Ray Femur Minimum 2 Views 09/18/2019 12:00:00 AM EST [facility] ([facility]) Results ID Date Data Source [id number] 11/04/2020 11:00:00 AM EST [facility] Name Value Range Interpretation Code Description Data Blanca rce(s) Supporting Document(s) SARS coronavirus 2 RNA Not Detected [facility] [place] This lab was ordered by [facility] and reported by [facility]. ID Date Data Source [id number] 10/28/2020 08:41:00 AM EST [facility] Name Value Range Interpretation Code Description Data Blanca rce(s) Supporting Document(s) SARS coronavirus 2 RNA [facility] This lab was ordered by [facility] and reported by [facility]. ID Date Data Source [id number] 10/21/2020 05:10:00 AM EST [facility] Name Value Range Interpretation Code Description Data Blanca rce(s) Supporting Document(s) SARS coronavirus 2 RNA [facility] This lab was ordered by [facility] and reported by [facility]. ID Date Data Source [id number] 10/14/2020 11:15:00 AM EST [facility] Name Value Range Interpretation Code Description Data Blanca rce(s) Supporting Document(s) SARS coronavirus 2 RNA [facility] This lab was ordered by [facility] and reported by [facility]. ID Date Data Source [id number] 10/07/2020 12:00:00 PM EST [facility] Name Value Range Interpretation Code Description Data Blanca rce(s) Supporting Document(s) SARS coronavirus 2 RNA [facility] This lab was ordered by [facility] and reported by [facility]. ID Date Data Source [id number] 10/03/2020 08:30:00 AM EST [facility] Name Value Range Interpretation Code Description Data Blanca rce(s) Supporting Document(s) SARS coronavirus 2 RNA [facility] This lab was ordered by [facility] and reported by [facility]. ID Date Data Source [id number] 09/30/2020 10:30:00 AM EST [facility] Name Value Range Interpretation Code Description Data Blanca rce(s) Supporting Document(s) SARS coronavirus 2 RNA [facility] This lab was ordered by [facility] and reported by [facility]. ID Date Data Source [id number] 09/23/2020 11:00:00 AM EST [facility] Name Value Range Interpretation Code Description Data Blanca rce(s) Supporting Document(s) SARS coronavirus 2 RNA [facility] This lab was ordered by [facility] and reported by [facility]. ID Date Data Source [id number] 09/16/2020 10:25:00 AM EST [facility] Name Value Range Interpretation Code Description Data Blanca rce(s) Supporting Document(s) SARS coronavirus 2 RNA [facility] This lab was ordered by [facility] and reported by [facility]. ID Date Data Source [id number] 09/10/2020 03:11:00 PM EST [facility] Name Value Range Interpretation Code Description Data Blanca rce(s) Supporting Document(s) SARS coronavirus 2 RNA [facility] This lab was ordered by [facility] and reported by [facility]. Procedure Social History Code Duration Value Status Description Data Source(s ) Smoking 04/29/2020 12:00:00 AM EDT Patient is a former smoker completed Patient is a former smoker MEDENT ([facility]) Vital Signs ID Date Data Source UNK Name Value Range Interpretation Code Description Data Source(s) Body mass index (BMI) [Ratio] 32.6 kg/m2 32.6 k g/m2 MEDENT ([facility]) Body height 63.5 [in_i] 63.5 [in_i] MEDENT ([facility]) 5'3.50" Body weight 187.00 [lb_av] 187.00 [lb_av] MEDEN T ([facility], [facility]) Body temperature 98.1 [degF] 98.1 [degF] MEDENT ([facility]) Oxygen saturation in Arterial blood by Pulse oximetry 97 % 97 % MEDENT ([facility]) Respiratory rate 24 /min 24 /min MED[facility] ( [facility]) Heart rate 84 /min 84 /min MED[facility] ([facility]) Diastolic blood pressure 71 mm[Hg] 71 mm[Hg] MEDENT ([facility]) Systolic blood pressure 120 mm[Hg] 120 mm[Hg] M EDENT ([facility]) Diastolic blood pressure 70 mm[Hg] 70 mm[Hg] eCW1 ([facility]) Systolic blood pressure 120 mm[Hg] 120 mm[Hg] e CW1 ([facility]) Body temperature 98 [degF] 98 [degF] eCW1 ([facility]) Respiratory rate 20 /min 20 /min eCW1 ([facility]) Heart rate 88 /min 88 /min eCW1 ([facility]) Body mass index (BMI) [Ratio] 34.38 kg/m2 34.38 kg/m2 eCW1 ([facility]) Body height 62.0 [in_i] 62.0 [in_i] eCW1 ([facility]) Body weight 188 [lb_av] 188 [lb_av] eCW1 ([facility])
[2020-11-11 23:12] VITALS: BP 136/85
--- NOTE | 2020-11-14 06:59 | ED PDOC ---
Post-Departure Follow-Up dr cortes faxed formal report of ct head for fu Alyssa Louis MD Nov 14, 2020 06:59
== END 2020-11-11 23:14 | disposition home or self-care (01) ==
LOC: EDBD 18:39 → M ED 18:39
DX: S05.12XA Contusion of eyeball and orbital tissues, left eye, initial encounter (principal); W19.XXXA Unspecified fall, initial encounter; Y92.129 Unspecified place in nursing home as the place of occurrence of the external cause; Y93.9 Activity, unspecified; Y99.9 Unspecified external cause status; E78.5 Hyperlipidemia, unspecified; I51.9 Heart disease, unspecified; Z79.82 Long term (current) use of aspirin; Z79.84 Long term (current) use of oral hypoglycemic drugs; Z79.899 Other long term (current) drug therapy; Z88.0 Allergy status to penicillin; Z88.6 Allergy status to analgesic agent; Z11.52 Encounter for screening for COVID-19
CPT/HCPCS: 36415; 70450; 70486; 80048; 85027; 99284; U0003

== ENCOUNTER → 2020-11-11 | Outpatient (CLI) | payer MEDICARE, OTHER ==
--- NOTE | 2020-11-11 13:46 | REPVR ---
PROCEDURE INFORMATION: Exam: CT Maxillofacial Without Contrast Exam date and time: 11/11/2020 1:31 PM Age: 80 years old Clinical indication: Eye pain; Left; Additional info: Lt orbital hematoma, fall injury TECHNIQUE: Imaging protocol: Computed tomography images of the face without contrast. Radiation optimization: All CT scans at this facility use at least one of these dose optimization techniques: automated exposure control; mA and/or kV adjustment per patient size (includes targeted exams where dose is matched to clinical indication); or iterative reconstruction. COMPARISON: No relevant prior studies available. FINDINGS: Orbital cavity: Orbits are normal. Globes are unremarkable. Bones/joints: No acute fracture. Paranasal sinuses: No sinus air-fluid levels. Trace bilateral maxillary sinus mucosal thickening. Retention cyst or polyp in the left maxillary sinus. Soft tissues: Left frontal scalp and periorbital soft tissue swelling. Brain: The brain demonstrates generalized volume loss and chronic small vessel ischemic change. There is a small, chronic appearing left cerebellar infarct. Dental: Dental disease is noted. Vasculature: Atherosclerotic calcifications at the carotid bifurcations. IMPRESSION: No facial bone fracture seen. Electronically signed by: Cherri Shaw On 11/11/2020 13:46:56 PM
== END ==
LOC: M RAD 12:56
PROVIDERS: ATTEND Nurse Practitioner Family
DX: S05.12XA Contusion of eyeball and orbital tissues, left eye, initial encounter (principal); W19.XXXA Unspecified fall, initial encounter; Y92.129 Unspecified place in nursing home as the place of occurrence of the external cause; Y99.9 Unspecified external cause status

== ENCOUNTER → 2020-11-11 | Outpatient (REF) | payer MEDICARE, OTHER ==
[2020-11-11 15:00] LABS: HEMATOCRIT 28.9 % (36.0-47.0); HEMOGLOBIN 8.6 g/dl (12.0-15.5); MEAN CORPUSCULAR HEMOGLOBIN 23.8 pg (27.0-33.0); MEAN CORPUSCULAR HGB CONC 29.8 g/dl (32.0-36.5); MEAN CORPUSCULAR VOLUME 79.8 fl (80.0-96.0); PLATELET COUNT, AUTOMATED 256 10^3/uL (150-450); RED BLOOD COUNT 3.62 10^6/uL (4.00-5.40); WHITE BLOOD COUNT 7.3 10^3/uL (4.0-10.0)
[2020-11-11 15:27] LABS: CREATININE FOR GFR 1.24 MG/DL (0.55-1.30)
[2020-11-11 15:28] LABS: CALCIUM LEVEL 8.8 MG/DL (8.8-10.2); GLOMERULAR FILTRATION RATE 44.3 (>32); POTASSIUM SERUM 3.3 MEQ/L (3.5-5.1)
== END ==
LOC: SKLAB7 10:33
PROVIDERS: ATTEND Internal Medicine
DX: Z11.52 Encounter for screening for COVID-19 (principal)

== ENCOUNTER → 2020-11-18 | Outpatient (REF) | payer MEDICARE, OTHER ==
[~2020-11-18] MED LIST changes: -GLYB5TA GT; -GLYB5TA PO; +GLYB5TAB6 GT; +GLYB5TAB6 PO
== END ==
LOC: SKLAB7 13:55
PROVIDERS: ATTEND Internal Medicine
DX: Z20.828 Contact with and (suspected) exposure to other viral communicable diseases (principal)
CPT/HCPCS: 82270; U0003

== ENCOUNTER → 2020-11-19 | Outpatient (REF) | payer MEDICARE, OTHER ==
[2020-11-19 09:02] LABS: HEMOGLOBIN 8.2 g/dl (12.0-15.5); MEAN CORPUSCULAR HEMOGLOBIN 22.9 pg (27.0-33.0); MEAN CORPUSCULAR HGB CONC 29.3 g/dl (32.0-36.5); MEAN CORPUSCULAR VOLUME 78.2 fl (80.0-96.0); PLATELET COUNT, AUTOMATED 264 10^3/uL (150-450); RED BLOOD COUNT 3.58 10^6/uL (4.00-5.40); WHITE BLOOD COUNT 6.6 10^3/uL (4.0-10.0)
[2020-11-19 09:19] LABS: ALBUMIN 3.6 GM/DL (3.2-5.2); BILIRUBIN,TOTAL 0.5 MG/DL (0.2-1.0); CALCIUM LEVEL 9.2 MG/DL (8.8-10.2); CREATININE FOR GFR 1.27 MG/DL (0.55-1.30); GLOMERULAR FILTRATION RATE 43.1 (>32); POTASSIUM SERUM 4.2 MEQ/L (3.5-5.1); TOTAL PROTEIN 7.2 GM/DL (6.4-8.2)
== END ==
LOC: SKLAB7 10:05
PROVIDERS: ATTEND Internal Medicine
DX: E11.9 Type 2 diabetes mellitus without complications (principal); I10 Essential (primary) hypertension

== ENCOUNTER → 2020-11-20 | Outpatient (REF) | payer MEDICARE, OTHER | LOC: SKLAB7 09:49 | PROVIDERS: ATTEND Internal Medicine | DX: D64.9 Anemia, unspecified (principal) ==

== ENCOUNTER → 2020-11-25 | Outpatient (REF) | payer MEDICARE, OTHER | LOC: SKLAB7 09:52 | PROVIDERS: ATTEND Internal Medicine | DX: Z20.828 Contact with and (suspected) exposure to other viral communicable diseases (principal) ==

== ENCOUNTER → 2020-11-26 | Outpatient (REF) | payer MEDICARE, OTHER ==
[~2020-11-26] MED LIST changes: +GLYB5TA GT; +GLYB5TA PO; -GLYB5TAB6 GT; -GLYB5TAB6 PO
[2020-11-26 12:09] LABS: HEMATOCRIT 27.2 % (36.0-47.0); MEAN CORPUSCULAR HEMOGLOBIN 22.8 pg (27.0-33.0); MEAN CORPUSCULAR HGB CONC 29.4 g/dl (32.0-36.5); MEAN CORPUSCULAR VOLUME 77.5 fl (80.0-96.0); PLATELET COUNT, AUTOMATED 242 10^3/uL (150-450); RED BLOOD COUNT 3.51 10^6/uL (4.00-5.40); WHITE BLOOD COUNT 6.1 10^3/uL (4.0-10.0)
== END ==
LOC: SKLAB7 07:00
PROVIDERS: ATTEND Internal Medicine
DX: D64.9 Anemia, unspecified (principal)

== ENCOUNTER → 2020-12-02 | Outpatient (REF) | payer MEDICARE, OTHER | LOC: SKLAB7 14:28 | PROVIDERS: ATTEND Internal Medicine | DX: Z20.822 Contact with and (suspected) exposure to COVID-19 (principal) ==

== ENCOUNTER → 2020-12-03 | Outpatient (REF) | payer MEDICARE, OTHER ==
[~2020-12-03] MED LIST changes: -GLYB5TA GT; -GLYB5TA PO; +GLYB5TAB6 GT; +GLYB5TAB6 PO
[2020-12-03 11:53] LABS: HEMATOCRIT 31.2 % (36.0-47.0); HEMOGLOBIN 8.9 g/dl (12.0-15.5); MEAN CORPUSCULAR HEMOGLOBIN 22.4 pg (27.0-33.0); MEAN CORPUSCULAR HGB CONC 28.5 g/dl (32.0-36.5); MEAN CORPUSCULAR VOLUME 78.4 fl (80.0-96.0); PLATELET COUNT, AUTOMATED 249 10^3/uL (150-450); RED BLOOD COUNT 3.98 10^6/uL (4.00-5.40); WHITE BLOOD COUNT 6.8 10^3/uL (4.0-10.0)
[2020-12-03 12:35] LABS: PERCENT SATURATION 3.9 % (13.2-45.0)
== END ==
LOC: SKLAB7 07:00
PROVIDERS: ATTEND Internal Medicine
DX: I50.9 Heart failure, unspecified (principal); D64.9 Anemia, unspecified

== ENCOUNTER → 2020-12-08 | Outpatient (REF) | payer MEDICARE, OTHER ==
[2020-12-08 09:44] LABS: HEMATOCRIT 30.8 % (36.0-47.0); HEMOGLOBIN 8.7 g/dl (12.0-15.5); MEAN CORPUSCULAR HEMOGLOBIN 21.9 pg (27.0-33.0); MEAN CORPUSCULAR HGB CONC 28.2 g/dl (32.0-36.5); MEAN CORPUSCULAR VOLUME 77.6 fl (80.0-96.0); PLATELET COUNT, AUTOMATED 251 10^3/uL (150-450); RED BLOOD COUNT 3.97 10^6/uL (4.00-5.40); WHITE BLOOD COUNT 5.4 10^3/uL (4.0-10.0)
[2020-12-08 09:55] LABS: CALCIUM LEVEL 8.9 MG/DL (8.8-10.2); CREATININE FOR GFR 1.31 MG/DL (0.55-1.30); GLOMERULAR FILTRATION RATE 41.6 (>32); POTASSIUM SERUM 3.4 MEQ/L (3.5-5.1)
== END ==
LOC: SKLAB7 07:00
PROVIDERS: ATTEND Internal Medicine
DX: I50.9 Heart failure, unspecified (principal)

== ENCOUNTER → 2020-12-09 | Outpatient (REF) | payer MEDICARE, OTHER | LOC: SKLAB7 11:05 | PROVIDERS: ATTEND Internal Medicine | DX: Z20.822 Contact with and (suspected) exposure to COVID-19 (principal) ==

== ENCOUNTER → 2020-12-15 | Outpatient (REF) | payer MEDICARE, OTHER ==
[2020-12-15 11:08] LABS: HEMATOCRIT 31.1 % (36.0-47.0); HEMOGLOBIN 9.4 g/dl (12.0-15.5); MEAN CORPUSCULAR HEMOGLOBIN 23.4 pg (27.0-33.0); MEAN CORPUSCULAR HGB CONC 30.2 g/dl (32.0-36.5); MEAN CORPUSCULAR VOLUME 77.4 fl (80.0-96.0); PLATELET COUNT, AUTOMATED 260 10^3/uL (150-450); RED BLOOD COUNT 4.02 10^6/uL (4.00-5.40); WHITE BLOOD COUNT 5.8 10^3/uL (4.0-10.0)
[2020-12-15 11:27] LABS: CALCIUM LEVEL 8.6 MG/DL (8.8-10.2); CREATININE FOR GFR 1.39 MG/DL (0.55-1.30); GLOMERULAR FILTRATION RATE 38.8 (>32); POTASSIUM SERUM 3.3 MEQ/L (3.5-5.1)
== END ==
LOC: SKLAB7 09:46
PROVIDERS: ATTEND Internal Medicine
DX: I50.9 Heart failure, unspecified (principal); D64.9 Anemia, unspecified

== ENCOUNTER → 2020-12-16 | Outpatient (REF) | payer MEDICARE, OTHER | LOC: SKLAB7 07:08 | PROVIDERS: ATTEND Internal Medicine | DX: Z11.52 Encounter for screening for COVID-19 (principal) ==

== ENCOUNTER → 2020-12-22 | Outpatient (REF) | payer MEDICARE, OTHER ==
[2020-12-22 11:03] LABS: HEMATOCRIT 34.6 % (36.0-47.0); HEMOGLOBIN 9.8 g/dl (12.0-15.5); MEAN CORPUSCULAR HEMOGLOBIN 22.7 pg (27.0-33.0); MEAN CORPUSCULAR HGB CONC 28.3 g/dl (32.0-36.5); MEAN CORPUSCULAR VOLUME 80.1 fl (80.0-96.0); PLATELET COUNT, AUTOMATED 300 10^3/uL (150-450); RED BLOOD COUNT 4.32 10^6/uL (4.00-5.40); WHITE BLOOD COUNT 5.5 10^3/uL (4.0-10.0)
[2020-12-22 11:27] LABS: CALCIUM LEVEL 9.4 MG/DL (8.8-10.2); CREATININE FOR GFR 1.42 MG/DL (0.55-1.30); GLOMERULAR FILTRATION RATE 37.9 (>32); POTASSIUM SERUM 3.7 MEQ/L (3.5-5.1)
== END ==
LOC: SKLAB7 07:00
PROVIDERS: ATTEND Internal Medicine
DX: I50.9 Heart failure, unspecified (principal); D64.9 Anemia, unspecified

== ENCOUNTER → 2020-12-23 | Outpatient (REF) | payer MEDICARE, OTHER | LOC: SKLAB7 14:14 | PROVIDERS: ATTEND Internal Medicine | DX: Z20.822 Contact with and (suspected) exposure to COVID-19 (principal) ==

== ENCOUNTER → 2020-12-28 | Outpatient (REF) | payer MEDICARE, OTHER ==
[2020-12-28 09:10] LABS: CALCIUM LEVEL 8.7 MG/DL (8.8-10.2); CREATININE FOR GFR 1.54 MG/DL (0.55-1.30); GLOMERULAR FILTRATION RATE 34.5 (>32); POTASSIUM SERUM 3.4 MEQ/L (3.5-5.1)
== END ==
LOC: SKLAB3 11:00
PROVIDERS: ATTEND Internal Medicine
DX: I50.9 Heart failure, unspecified (principal)

== ENCOUNTER → 2021-01-04 | Outpatient (REF) | payer MEDICARE, OTHER ==
[2021-01-04 07:20] LABS: CALCIUM LEVEL 9.1 MG/DL (8.8-10.2); CREATININE FOR GFR 1.33 MG/DL (0.55-1.30); GLOMERULAR FILTRATION RATE 40.9 (>32); POTASSIUM SERUM 4.1 MEQ/L (3.5-5.1)
== END ==
LOC: SKLAB7 07:00
PROVIDERS: ATTEND Internal Medicine
DX: I50.9 Heart failure, unspecified (principal)

== ENCOUNTER → 2021-01-06 | Outpatient (REF) | payer MEDICARE, OTHER | LOC: SKLAB7 09:42 | PROVIDERS: ATTEND Internal Medicine | DX: Z20.822 Contact with and (suspected) exposure to COVID-19 (principal) ==

== ENCOUNTER → 2021-01-13 | Outpatient (REF) | payer MEDICARE, OTHER | LOC: SKLAB7 12:20 | PROVIDERS: ATTEND Internal Medicine | DX: Z20.822 Contact with and (suspected) exposure to COVID-19 (principal) ==

== ENCOUNTER → 2021-01-14 | Outpatient (REF) | payer MEDICARE, OTHER ==
[2021-01-14 13:05] LABS: HEMOGLOBIN A1c 6.5 %
== END ==
LOC: SKLAB7 09:17
PROVIDERS: ATTEND Internal Medicine
DX: E11.9 Type 2 diabetes mellitus without complications (principal)

== ENCOUNTER → 2021-01-21 | Outpatient (REF) | payer MEDICARE, OTHER ==
[2021-01-21 07:23] LABS: HEMATOCRIT 36.4 % (36.0-47.0); HEMOGLOBIN 10.7 g/dl (12.0-15.5); MEAN CORPUSCULAR HEMOGLOBIN 23.4 pg (27.0-33.0); MEAN CORPUSCULAR HGB CONC 29.4 g/dl (32.0-36.5); MEAN CORPUSCULAR VOLUME 79.6 fl (80.0-96.0); PLATELET COUNT, AUTOMATED 253 10^3/uL (150-450); RED BLOOD COUNT 4.57 10^6/uL (4.00-5.40); WHITE BLOOD COUNT 6.3 10^3/uL (4.0-10.0)
[2021-01-21 07:49] LABS: CREATININE FOR GFR 1.11 MG/DL (0.55-1.30); GLOMERULAR FILTRATION RATE 50.3 (>32); PERCENT SATURATION 4.8 % (13.2-45.0); POTASSIUM SERUM 3.4 MEQ/L (3.5-5.1)
== END ==
LOC: SKLAB7 07:00
PROVIDERS: ATTEND Internal Medicine
DX: N18.9 Chronic kidney disease, unspecified (principal); D64.9 Anemia, unspecified

== ENCOUNTER 2021-01-26 09:37 | Outpatient (CLI) | payer MEDICARE, OTHER ==
[~2021-01-26] VITALS: Ht 160 cm; Wt 63.0 kg
[2021-01-26] MEDS ORDERED: [UNRECOGNIZED DRUG - REMARK] IV ONE ×2 (10:00)
[2021-01-26 10:13] VITALS: BP 117/70
[2021-01-26 11:19] VITALS: BP 118/71
== END 2021-01-26 11:30 | disposition home or self-care (01) ==
LOC: M INFU 09:37
PROVIDERS: ATTEND Internal Medicine
DX: D50.9 Iron deficiency anemia, unspecified (principal); Z88.0 Allergy status to penicillin; Z88.6 Allergy status to analgesic agent
CPT/HCPCS: 96365; J2916

== ENCOUNTER → 2021-01-28 | Outpatient (REF) | payer MEDICARE, OTHER ==
[2021-01-28 09:55] LABS: CALCIUM LEVEL 9.3 MG/DL (8.8-10.2); CREATININE FOR GFR 0.96 MG/DL (0.55-1.30); GLOMERULAR FILTRATION RATE 59.4 (>32); POTASSIUM SERUM 2.9 MEQ/L (3.5-5.1)
== END ==
LOC: SKLAB7 07:00
PROVIDERS: ATTEND Internal Medicine
DX: I50.9 Heart failure, unspecified (principal)

== ENCOUNTER → 2021-01-29 | Outpatient (REF) | payer MEDICARE, OTHER | LOC: SKLAB7 07:00 | PROVIDERS: ATTEND Internal Medicine | DX: Z20.822 Contact with and (suspected) exposure to COVID-19 (principal) ==

== ENCOUNTER → 2021-02-04 | Outpatient (REF) | payer MEDICARE, OTHER ==
[2021-02-04 10:20] LABS: CALCIUM LEVEL 9.4 MG/DL (8.8-10.2); CREATININE FOR GFR 1.14 MG/DL (0.55-1.30); GLOMERULAR FILTRATION RATE 48.7 (>32); POTASSIUM SERUM 4.1 MEQ/L (3.5-5.1)
== END ==
LOC: SKLAB7 08:00
PROVIDERS: ATTEND Internal Medicine
DX: I50.9 Heart failure, unspecified (principal)

== ENCOUNTER → 2021-02-26 | Outpatient (REF) | payer MEDICARE, OTHER ==
[~2021-02-26] MED LIST changes: +CARV3.12; +MELA5TAB29 SL; +POTA10CA32; +QC A650T3 PO; +RA S0.65 NARES; +SERT25TA21; +SPIR-10; +TORS20TA2 PO
== END ==
LOC: SKLAB7 01-30 07:00
PROVIDERS: ATTEND Internal Medicine
DX: D64.9 Anemia, unspecified (principal)

== ENCOUNTER 2021-03-02 06:58 | Outpatient (CLI) | payer MEDICARE, OTHER ==
[~2021-03-02] VITALS: Ht 160 cm; Wt 63.0 kg
[~2021-03-02 06:58] MED LIST changes: -CARV3.12; -MELA5TAB29 SL; -POTA10CA32; -QC A650T3 PO; -RA S0.65 NARES; -SERT25TA21; -SPIR-10; -TORS20TA2 PO
[2021-03-02] MEDS ORDERED: FERROUS GLUCONATE 125 MG in NS 100 ML IV ONE (07:00)
[2021-03-02 07:22] VITALS: BP 114/59
[2021-03-02 08:53] VITALS: BP 109/58
== END 2021-03-02 08:50 | disposition home or self-care (01) ==
LOC: M INFU 06:58
PROVIDERS: ATTEND Nurse Practitioner Family
DX: D50.9 Iron deficiency anemia, unspecified (principal); Z88.0 Allergy status to penicillin; Z88.6 Allergy status to analgesic agent
CPT/HCPCS: 96365; J2916

== ENCOUNTER → 2021-03-10 | Outpatient (REF) | payer MEDICARE, OTHER ==
[~2021-03-10] MED LIST changes: +CARV3.12; +MELA5TAB29 SL; +POTA10CA32; +QC A650T3 PO; +RA S0.65 NARES; +SERT25TA21; +SPIR-10; +TORS20TA2 PO
[2021-03-10 08:05] LABS: HEMOGLOBIN 10.4 g/dl (12.0-15.5); MEAN CORPUSCULAR HEMOGLOBIN 25.6 pg (27.0-33.0); MEAN CORPUSCULAR HGB CONC 30.6 g/dl (32.0-36.5); MEAN CORPUSCULAR VOLUME 83.7 fl (80.0-96.0); PLATELET COUNT, AUTOMATED 297 10^3/uL (150-450); RED BLOOD COUNT 4.06 10^6/uL (4.00-5.40); WHITE BLOOD COUNT 6.9 10^3/uL (4.0-10.0)
[2021-03-10 08:25] LABS: BLOOD UREA NITROGEN 15 MG/DL (7-18); CALCIUM LEVEL 8.8 MG/DL (8.8-10.2); CARBON DIOXIDE LEVEL 27 MEQ/L (21-32); CHLORIDE LEVEL 104 MEQ/L (98-107); CREATININE FOR GFR 0.95 MG/DL (0.55-1.30); GLOMERULAR FILTRATION RATE > 60.0 (>32); GLUCOSE, FASTING 136 MG/DL (70-100); POTASSIUM SERUM 3.8 MEQ/L (3.5-5.1); SODIUM LEVEL 138 MEQ/L (136-145)
== END ==
LOC: SKLAB3 07:04
PROVIDERS: ATTEND Internal Medicine
DX: K92.1 Melena (principal)

== ENCOUNTER → 2021-03-10 | Outpatient (REF) | payer MEDICARE, OTHER | LOC: SKLAB7 04:00 | PROVIDERS: ATTEND Internal Medicine | DX: K92.1 Melena (principal) ==

== ENCOUNTER → 2021-03-15 | Outpatient (REF) | payer MEDICARE, OTHER ==
[2021-03-15 10:30] LABS: HEMATOCRIT 34.4 % (36.0-47.0); HEMOGLOBIN 10.6 g/dl (12.0-15.5); MEAN CORPUSCULAR HGB CONC 30.8 g/dl (32.0-36.5); MEAN CORPUSCULAR VOLUME 84.3 fl (80.0-96.0); PLATELET COUNT, AUTOMATED 304 10^3/uL (150-450); RED BLOOD COUNT 4.08 10^6/uL (4.00-5.40); WHITE BLOOD COUNT 6.5 10^3/uL (4.0-10.0)
== END ==
LOC: SKLAB7 07:00
PROVIDERS: ATTEND Internal Medicine
DX: D50.0 Iron deficiency anemia secondary to blood loss (chronic) (principal); Z20.822 Contact with and (suspected) exposure to COVID-19

== ENCOUNTER 2021-03-17 11:08 | Day surgery (SDC) | payer MEDICARE, OTHER ==
[~2021-03-17] VITALS: Ht 165.1 cm; Wt 76.2 kg
[~2021-03-17 11:08] MED LIST changes: +NS 1,000 ML IV ONE
[2021-03-17] MEDS ORDERED: propofoL 500 MG/50 ML VIAL As Ordered ONE (11:42)
[2021-03-17] MEDS ORDERED: LIDOCAINE 2% 100MG/5ML SDV (FOR ANES.) As Ordered ONE (12:13)
--- NOTE | 2021-03-17 12:19 | ROOR ---
Patient Name: Brianna Marinelli Procedure Date: 03/17/2021 12:02 PM Date of : 1940 Age: 81 Room: [facility] Gender: Female Note Status: Finalized Procedure: Upper Endoscopy + Biopsies Indications: Iron deficiency anemia, Unexplained iron deficiency anemia Providers: Mason Mcdaniel MD Referring MD: DAMON LANDERS JR, MD Requesting Provider: Medicines: Monitored Anesthesia Care Complications: No immediate complications. Procedure: Pre-Anesthesia Assessment: - The heart rate, respiratory rate, oxygen saturations, blood pressure, adequacy of pulmonary ventilation, and response to care were monitored throughout the procedure. The Endoscope was introduced through the mouth, and advanced to the second part of duodenum. The upper GI endoscopy was accomplished without difficulty. The patient tolerated the procedure well. Findings: The Z-line was irregular and was found 40 cm from the incisors. Multiple biopsies were obtained with cold forceps for evaluation to rule out Blevins's Esophagus randomly at the gastroesophageal junction. A small hiatal hernia was present. Localized mild inflammation characterized by erosions was found in the gastric antrum. Biopsies were taken with a cold forceps for Helicobacter pylori testing. The exam of the duodenum was otherwise normal. Impression: - Z-line irregular, 40 cm from the incisors. - Small hiatal hernia. - Mucosal changes suspicious for gastritis. Biopsied. - Multiple biopsies were obtained at the gastroesophageal junction. - The examination was otherwise normal. Recommendation: - Patient has a contact number available for emergencies. The signs and symptoms of potential delayed complications were discussed with the patient. Return to normal activities tomorrow. Written discharge instructions were provided to the patient. - High fiber diet. - Discharge patient to home. - Follow an antireflux regimen. - Continue present medications. - Await pathology results. - Telephone GI clinic for pathology results in 1 week. - Return to referring physician. - The findings and recommendations were discussed with the patient's family. Procedure Code(s): --- Professional --- 04260, Esophagogastroduodenoscopy, flexible, transoral; with biopsy, single or multiple Diagnosis Code(s): --- Professional --- K22.8, Other specified diseases of esophagus K44.9, Diaphragmatic hernia without obstruction or gangrene K31.89, Other diseases of stomach and duodenum D50.9, Iron deficiency anemia, unspecified CPT copyright 2019 [employer]. All rights reserved. The codes documented in this report are preliminary and upon procedure tech review may be revised to meet current compliance requirements. Mason Mcdaniel MD Mason Mcdaniel MD 03/17/2021 12:19:29 PM Electronically signed by Mason Mcdaniel MD Number of Addenda: 0 Note Initiated On: 03/17/2021 12:02 PM Estimated Blood Loss: Estimated blood loss: none.
[2021-03-17 12:35] VITALS: BP 113/73
--- NOTE | 2021-03-17 12:35 | ROOR ---
Patient Name: Brianna Marinelli Procedure Date: 03/17/2021 12:02 PM Date of : 1940 Age: 81 Room: [facility] Gender: Female Note Status: Finalized Procedure: Total Colonoscopy to cecum + Bx. Indications: Unexplained iron deficiency anemia Providers: Mason Mcdaniel MD Referring MD: DAMON LANDERS JR, MD Requesting Provider: Medicines: Monitored Anesthesia Care Complications: No immediate complications. Procedure: Pre-Anesthesia Assessment: - The heart rate, respiratory rate, oxygen saturations, blood pressure, adequacy of pulmonary ventilation, and response to care were monitored throughout the procedure. The Colonoscope was introduced through the anus and advanced to the cecum, identified by appendiceal orifice and ileocecal valve. The colonoscopy was performed without difficulty. The patient tolerated the procedure well. The quality of the bowel preparation was good. Findings: The perianal and digital rectal examinations were normal. Non-bleeding internal hemorrhoids were found during retroflexion. The hemorrhoids were small and Grade I (internal hemorrhoids that do not prolapse). Multiple small and large-mouthed diverticula were found in the recto-sigmoid colon, sigmoid colon and descending colon. An ulcerated partially obstructing large mass was found in the mid ascending colon. The mass was partially circumferential (involving two-thirds of the lumen circumference). No bleeding was present. Biopsies were taken with a cold forceps for histology. The exam was otherwise without abnormality on direct and retroflexion views. Impression: - Non-bleeding internal hemorrhoids. - Diverticulosis in the recto-sigmoid colon, in the sigmoid colon and in the descending colon. - Rule out malignancy, partially obstructing tumor in the mid ascending colon. Biopsied. - The examination was otherwise normal on direct and retroflexion views. - The exam was otherwise normal to the cecum. Recommendation: - Patient has a contact number available for emergencies. The signs and symptoms of potential delayed complications were discussed with the patient. Return to normal activities tomorrow. Written discharge instructions were provided to the patient. - Resume previous diet. - Discharge patient to home. - Continue present medications. - Await pathology results. - Telephone GI clinic for pathology results in 1 week. - Refer to a surgeon at appointment to be scheduled. - The findings and recommendations were discussed with the patient's family. Procedure Code(s): --- Professional --- 10917, Colonoscopy, flexible; with biopsy, single or multiple Diagnosis Code(s): --- Professional --- K64.0, First degree hemorrhoids D49.0, Neoplasm of unspecified behavior of digestive system K56.690, Other partial intestinal obstruction D50.9, Iron deficiency anemia, unspecified K57.30, Diverticulosis of large intestine without perforation or abscess without bleeding CPT copyright 2019 [employer]. All rights reserved. The codes documented in this report are preliminary and upon nail sticker review may be revised to meet current compliance requirements. Mason Mcdaniel MD Mason Mcdaniel MD 03/17/2021 12:35:05 PM Electronically signed by Mason Mcdaniel MD Number of Addenda: 0 Note Initiated On: 03/17/2021 12:02 PM Estimated Blood Loss: Estimated blood loss: none.
== END 2021-03-17 13:00 | disposition home or self-care (01) ==
LOC: M OPP 11:08
PROVIDERS: ATTEND Internal Medicine Gastroenterology
DX: C18.2 Malignant neoplasm of ascending colon (principal); K57.30 Diverticulosis of large intestine without perforation or abscess without bleeding; K64.0 First degree hemorrhoids; D50.9 Iron deficiency anemia, unspecified; K22.8 Other specified diseases of esophagus; K44.9 Diaphragmatic hernia without obstruction or gangrene; K31.89 Other diseases of stomach and duodenum; K29.70 Gastritis, unspecified, without bleeding; I50.9 Heart failure, unspecified; Z79.82 Long term (current) use of aspirin; Z79.84 Long term (current) use of oral hypoglycemic drugs; Z79.899 Other long term (current) drug therapy; Z88.0 Allergy status to penicillin; Z88.5 Allergy status to narcotic agent

== ENCOUNTER → 2021-03-22 | Outpatient (CLI) | payer MEDICARE, OTHER ==
[~2021-03-22] MED LIST changes: +GASTROGRAFIN SOLUTION 30ML (Q9963) As Ordered ONE; +ISOVUE-370 76% 100ML VIAL As Ordered ONE; -NS 1,000 ML IV ONE
--- NOTE | 2021-03-22 11:51 | REPVR ---
PROCEDURE INFORMATION: Exam: CT Abdomen And Pelvis With Contrast Exam date and time: 03/22/2021 11:08 AM Age: 81 years old Clinical indication: Condition or disease; Other: Colon CA R/O mets TECHNIQUE: Imaging protocol: Computed tomography of the abdomen and pelvis with contrast. Radiation optimization: All CT scans at this facility use at least one of these dose optimization techniques: automated exposure control; mA and/or kV adjustment per patient size (includes targeted exams where dose is matched to clinical indication); or iterative reconstruction. Contrast material: ISOVUE 370; Contrast volume: 100 ml; Contrast route: INTRAVENOUS (IV); Other contrast: Oral, GASTROGRAPHIN, 10CC GASTRO IN 290 WATER x 2; COMPARISON: IA Hip,AP,LAT to include Pelvis LEFT 11/08/2017 5:32 PM FINDINGS: Mediastinal space: Small sliding hiatal hernia. Liver: Normal. No mass. Gallbladder and bile ducts: Status post cholecystectomy. No ductal dilatation. Pancreas: Normal. No ductal dilation. Spleen: Normal. No splenomegaly. Adrenal glands: Normal. No mass. Kidneys and ureters: Normal. No hydronephrosis. Stomach and bowel: Moderate fecal loading in the rectum and mild fecal loading in the colon. Mild rectal wall thickening, direct visualization is recommended. No surrounding inflammatory changes. Scattered colonic diverticula without any CT evidence of diverticulitis. No small bowel dilatation or obstruction. Appendix: No evidence of appendicitis. Intraperitoneal space: Unremarkable. No free air. No significant fluid collection. Vasculature: Moderate atherosclerosis of the aorta and its branches. Lymph nodes: Unremarkable. No enlarged lymph nodes. Urinary bladder: Unremarkable as visualized. Reproductive: Unremarkable as visualized. Bones/joints: Diffuse demineralization of the bones with degenerative changes. Mild anterolisthesis of L4 on L5 and minimal retrolisthesis of L5 on S1. The mild dextroscoliosis of the thoracolumbar spine. No acute fracture. Left intramedullary nory and pinning. Intact surgical hardware. Left sacroiliitis. Soft tissues: Unremarkable. IMPRESSION: Moderate fecal loading in the rectum and mild fecal loading in the colon. Mild rectal wall thickening, direct visualization is recommended. No surrounding inflammatory changes. Scattered colonic diverticula without any CT evidence of diverticulitis. No small bowel dilatation or obstruction. Electronically signed by: Nella Herrmann On 03/22/2021 11:51:21 AM
--- NOTE | 2021-03-22 11:56 | REPVR ---
PROCEDURE INFORMATION: Exam: CT Chest With Contrast; Diagnostic Exam date and time: 03/22/2021 11:08 AM Age: 81 years old Clinical indication: Condition or disease; Other: Colon CA R/O mets TECHNIQUE: Imaging protocol: Diagnostic computed tomography of the chest with contrast. Radiation optimization: All CT scans at this facility use at least one of these dose optimization techniques: automated exposure control; mA and/or kV adjustment per patient size (includes targeted exams where dose is matched to clinical indication); or iterative reconstruction. Contrast material: ISOVUE 370; Contrast volume: 100 ml; Contrast route: INTRAVENOUS (IV); Other contrast: Oral, GASTROGRAPHIN, 10 CC GASTRO IN 290ML WATER x 2; COMPARISON: CR PORTABLE CHEST X-RAY 05/17/2020 11:49 AM FINDINGS: Lungs: Mild ground-glass densities of bilateral lungs the linear atelectasis versus scarring in the lingula. No large focal density to suggest pneumonia. Pleural spaces: Unremarkable. No pneumothorax. No pleural effusion. Heart: Cardiomegaly. Coronary calcifications. Pulmonary arteries: Right pulmonary artery is enlarged measuring 3.4 cm likely representing pulmonary hypertension. Aorta: Moderate atherosclerosis. . No aortic aneurysm. Lymph nodes: Unremarkable. No enlarged lymph nodes. Bones/joints: Diffuse demineralization of the bones with degenerative changes. Soft tissues: Unremarkable. IMPRESSION: Mild ground-glass densities of bilateral lungs likely edema. Linear atelectasis versus scarring in the lingula. No large focal density to suggest pneumonia. No evidence of metastatic disease. Electronically signed by: Nella Herrmann On 03/22/2021 11:55:47 AM
== END ==
LOC: M RAD 09:12
PROVIDERS: ATTEND Surgery
DX: C18.2 Malignant neoplasm of ascending colon (principal)
CPT/HCPCS: 71260; 74177; Q9963; Q9967

== ENCOUNTER → 2021-03-22 | Outpatient (REF) | payer MEDICARE, OTHER ==
[~2021-03-22] MED LIST changes: -GASTROGRAFIN SOLUTION 30ML (Q9963) As Ordered ONE; -ISOVUE-370 76% 100ML VIAL As Ordered ONE; +SERT-141 PO
[2021-03-22 08:30] LABS: CREATININE FOR GFR 1.1 MG/DL (0.55-1.30); GLOMERULAR FILTRATION RATE 50.7 (>32)
== END ==
LOC: SKLAB7 07:00
PROVIDERS: ATTEND Internal Medicine
DX: Z01.818 Encounter for other preprocedural examination (principal); K63.89 Other specified diseases of intestine

== ENCOUNTER → 2021-04-01 | Outpatient (REF) | payer MEDICARE, OTHER ==
[2021-04-01 09:28] LABS: HEMATOCRIT 31.5 % (36.0-47.0); HEMOGLOBIN 9.6 g/dl (12.0-15.5); MEAN CORPUSCULAR HEMOGLOBIN 25.5 pg (27.0-33.0); MEAN CORPUSCULAR HGB CONC 30.5 g/dl (32.0-36.5); MEAN CORPUSCULAR VOLUME 83.6 fl (80.0-96.0); PLATELET COUNT, AUTOMATED 310 10^3/uL (150-450); RED BLOOD COUNT 3.77 10^6/uL (4.00-5.40); WHITE BLOOD COUNT 6.8 10^3/uL (4.0-10.0)
== END ==
LOC: SKLAB7 07:00
PROVIDERS: ATTEND Internal Medicine
DX: D64.9 Anemia, unspecified (principal)

== ENCOUNTER 2021-04-05 14:27 | Outpatient (CLI) | payer MEDICARE, OTHER ==
[~2021-04-05] VITALS: Ht 165.1 cm; Wt 76.2 kg
[~2021-04-05 14:27] MED LIST changes: -SERT-141 PO
[2021-04-05] MEDS ORDERED: FERROUS GLUCONATE 125 MG in NS 100 ML IV ONE (14:30)
[2021-04-05 14:44] VITALS: BP 118/63
[2021-04-05 16:26] VITALS: BP 121/72
[2021-04-06] MEDS ORDERED: SERT-141 PO (12:50)
== END 2021-04-05 16:28 | disposition home or self-care (01) ==
LOC: M INFU 14:27
PROVIDERS: ATTEND Nurse Practitioner Family
DX: D50.9 Iron deficiency anemia, unspecified (principal); Z88.0 Allergy status to penicillin; Z88.6 Allergy status to analgesic agent; Z79.899 Other long term (current) drug therapy
CPT/HCPCS: 96365; J2916

== ENCOUNTER → 2021-04-07 | Outpatient (REF) | payer MEDICARE, OTHER ==
[~2021-04-07] MED LIST changes: +SERT-141 PO
--- NOTE | 2021-04-07 15:15 | REP ---
INDICATION: NH-OP CLERANCE. COMPARISON: None. TECHNIQUE: PA and lateral FINDINGS: There is cardiomegaly. There is chronic pulmonary vascular engorgement without pulmonary vascular redistribution or elysia pulmonary edema. No acute patchy parenchymal opacities or pleural effusions have developed. There is no change in the osseous structures. IMPRESSION: Cardiomegaly without evidence of acute cardiopulmonary disease. <Electronically signed by Jhonny Tovar > 04/07/21 0169
[2021-04-07 15:35] LABS: HEMATOCRIT 32.3 % (36.0-47.0); HEMOGLOBIN 9.8 g/dl (12.0-15.5); MEAN CORPUSCULAR HEMOGLOBIN 25.5 pg (27.0-33.0); MEAN CORPUSCULAR HGB CONC 30.3 g/dl (32.0-36.5); MEAN CORPUSCULAR VOLUME 84.1 fl (80.0-96.0); PLATELET COUNT, AUTOMATED 310 10^3/uL (150-450); RED BLOOD COUNT 3.84 10^6/uL (4.00-5.40); WHITE BLOOD COUNT 7.5 10^3/uL (4.0-10.0)
[2021-04-07 16:27] LABS: ALBUMIN 3.6 GM/DL (3.2-5.2); BILIRUBIN,TOTAL 0.4 MG/DL (0.2-1.0); CALCIUM LEVEL 9.1 MG/DL (8.8-10.2); CREATININE FOR GFR 1.19 MG/DL (0.55-1.30); GLOMERULAR FILTRATION RATE 46.3 (>32); POTASSIUM SERUM 4.2 MEQ/L (3.5-5.1); TOTAL PROTEIN 7.6 GM/DL (6.4-8.2)
--- NOTE | 2021-04-08 06:02 | ECGEPIP ---
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
== END ==
LOC: SKLAB7 14:51
PROVIDERS: ATTEND Internal Medicine
DX: Z01.818 Encounter for other preprocedural examination (principal); I11.0 Hypertensive heart disease with heart failure; I50.9 Heart failure, unspecified; D64.9 Anemia, unspecified; R91.8 Other nonspecific abnormal finding of lung field

== ENCOUNTER → 2021-04-08 | Outpatient (REF) | payer MEDICARE, OTHER | LOC: SKLAB7 07:00 | PROVIDERS: ATTEND Internal Medicine | DX: Z01.818 Encounter for other preprocedural examination (principal); I11.0 Hypertensive heart disease with heart failure; I50.9 Heart failure, unspecified; D64.9 Anemia, unspecified ==

== ENCOUNTER 2021-04-13 06:24 | Inpatient (IN) | payer MEDICARE, OTHER ==
[~2021-04-13] VITALS: Ht 160 cm; Wt 77.4 kg
[2021-04-13] MEDS ORDERED: ERTAPENEM SODIUM 1 GM in NS MINI-BAG PLUS 50 ML IV ONE (06:45)
[2021-04-13] MEDS ORDERED: CelecoXIB 400 MG CAP PO ONE (06:45)
[2021-04-13] MEDS ORDERED: ALVIMOPAN 12 MG CAPSULE (ENTEREG) PO ONE (06:45)
[2021-04-13] MEDS ORDERED: HEPARIN SOD (PORCINE) 5000UNITS/ML 1ML VIAL/SYRINGE SQ ONE (06:45)
[2021-04-13] MEDS ORDERED: fentaNYL 250 MCG/5 ML INJECTION (J3010) As Ordered ONE (07:05)
[2021-04-13] MEDS ORDERED: MIDAZOLAM INJ 2MG/2ML VIAL (J2250 PER 1MG) As Ordered ONE (07:05)
[2021-04-13] MEDS ORDERED: SUGAMMADEX SODIUM 500 MG/5 ML VIAL (BRIDION) As Ordered ONE (07:06)
[2021-04-13] MEDS ORDERED: ROCURONIUM BROMIDE 50 MG/5 ML VIAL As Ordered ONE (07:06)
[2021-04-13] MEDS ORDERED: PHENYLephrine 500MCG 5ML (100MCG/ML) SYRINGE As Ordered ONE (07:06)
[2021-04-13] MEDS ORDERED: propofoL 200 MG/20 ML VIAL As Ordered ONE (07:06)
[2021-04-13] MEDS ORDERED: LIDOCAINE 2% 100MG/5ML SDV (FOR ANES.) As Ordered ONE (07:06)
[2021-04-13] MEDS ORDERED: dexameTHASONE 4 MG/ML 1ML VIAL (J1100 PER 1MG) As Ordered ONE (07:06)
[2021-04-13] MEDS ORDERED: ePHEDrine SULFATE 25 MG/5 ML(5MG/ML) SYRINGE As Ordered ONE (07:06)
[2021-04-13] MEDS ORDERED: ACETAMINOPHEN 1000MG 100ML IV BTL (OFIRMEV) (J0131 PER 10MG) As Ordered ONE (07:06)
[2021-04-13] MEDS ORDERED: ONDANSETRON 4MG/2ML VIAL As Ordered ONE (07:06)
[2021-04-13] MEDS ORDERED: BUPIVACAINE LIPOSOME/PF 1.3% 20ML VIAL (13.3MG/ML)(EXPAREL)(C9290 PER1MG) As Ordered ONE (07:11)
[2021-04-13] MEDS ORDERED: LIDOCAINE 1% SDV 30ML VIAL As Ordered ONE (07:11)
[2021-04-13] MEDS ORDERED: BUPIVACAINE HCL 0.25% 30ML VIAL As Ordered ONE (07:11)
[2021-04-13] MEDS ORDERED: BUPIVACAINE HCL 0.25% 10ML VIAL As Ordered ONE (07:11)
[2021-04-13] MEDS ORDERED: LR 1,000 ML IV ONE (07:35)
[2021-04-13 08:13] LABS: CREATININE FOR GFR 1.04 MG/DL (0.55-1.30); GLOMERULAR FILTRATION RATE 54.1 (>32); POTASSIUM SERUM 3.8 MEQ/L (3.5-5.1)
--- NOTE | 2021-04-13 08:17 | IPNPDOC ---
Text Note Date of Service The patient was seen on 04/13/21. NOTE Patient with ascending colon malignancy scheduled to have robotic assisted la paroscopic right colectomy today. She has baseline dementia and a resident of [facility]. It turns out she did not take the mechanical and antibiotic bowel prep last evening as per my orders. We will admit her today and do her bowel prep and proceed later on today with the surgery. VS,Fishbone, I+O VS, Fishbone, I+O Laboratory Tests 04/13/21 07:34 Vital Signs Date Time Temp Pulse Resp B/P (MAP) Pulse Ox O2 Delivery O2 Flow Rate FiO2 04/13/21 06:30 96.7 80 20 143/80 (101) 100 Room Air SHANIKA WOODWARD MD Apr 13, 2021 08:17
[2021-04-13 08:46] VITALS: BP 117/74
[2021-04-13] MEDS: CARVedilol 3.125 MG TAB PO SCH ×2 (08:47→20:28)
[2021-04-13] MEDS: SPIRONOLACTONE 25 MG TAB PO SCH (08:47)
[2021-04-13] MEDS: metroNIDAZOLE (FLAGYL) 500MG TABLET PO SCH ×2 (08:47→15:10)
[2021-04-13] MEDS: LR 1,000 ML IV SCH ×2 (08:48→15:10)
[2021-04-13] MEDS ORDERED: BISACODYL 5 MG TAB PO ONE (09:00)
[2021-04-13] MEDS ORDERED: MAGNESIUM CITRATE 300 ML BTL PO ONE (09:00)
--- NOTE | 2021-04-13 10:01 | ECGEPIP ---
[facility] Test Date: 2021-04-13 Pat Name: KEITH WADE Department: Room: [place] [address] Gender: Female Lab Specialist: HOLLIE : 1940 Requested By: Valentin Garcia Order Number: [id number] Reading MD: Nadine Moreno Measurements Intervals [place] Rate: 72 P: 15 TN: 144 QRS: 24 QRSD: 92 T: 159 QT: 412 QTc: 451 Interpretive Statements Normal sinus rhythm Possible Inferior infarct , age undetermined ST & T wave abnormality, consider anterolateral ischemia SIMILar to 04/07/21 Electronically Signed on 04-13-2021 10:00:31 EDT by Nadine Moreno
[2021-04-13] MEDS: NEOMYCIN SULFATE 500 MG TAB PO SCH ×2 (12:21→15:10)
[2021-04-13 15:05] VITALS: BP 114/75
[2021-04-13 22:00] VITALS: BP 134/79
[2021-04-14] MEDS: LR 1,000 ML IV SCH (01:12)
[2021-04-14 06:00] VITALS: BP 126/75
--- NOTE | 2021-04-14 07:37 | HPEPDOC ---
General Surgery H&P Date of Admission Apr 13, 2021 Attending Physician: SHANIKA WOODWARD MD History and Physical CC: Patient presents for evaluation of colon cancer. HPI: Colon cancer. Patient here to discuss options for recent finding of ascending colon malignancy on colonoscopy. It looks like she was being worked up for the cause of her long-standing anemia. She underwent upper endoscopy and colonoscopy by Dr. Mcdaniel on 03/17/2021. She has baseline dementia and does not seem to have in situ on her condition. Review [facility] records showed that she has long-standing iron deficiency anemia that requires IV iron infusion. 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 She was here in the clinic last week following that colonoscopy but full discussion could not be had, he re quested that she come back with her significant other for discussion of the options for her. In the meantime I had requested a CT of the chest abdomen and pelvis which was done prior to her visit today for metastatic workup. She is here today with her as well as her sister. Healthcare proxy . Her sister seems to involve and social service with experience on discussions with geriatric patients regarding their condition. She is here as an advocate for them. Her seems to be also mentally slow. He is the primary decision maker for her. denies any abdominal pain or discomfort. Has had a CT scan of the chest , abdomen, pelvis. Colonoscopy and upper endoscopy. Reports long standing anemia, denies bleeding with bms, unexplained weight loss, loss of appetite. She is a resident at [facility]. Current Meds Prior to Visit: Aspirin 81 mg, Spironolactone 25 mg, Carvedilol 3.125 mg, Dulcolax 10 mg, Potassium Chloride ER 20 Meq, Zoloft 25 mg, Sorbitol Solution 3%, Torsemide 20 mg, Saline Nasal Magnolia 0.65 %, Melatonin 5 mg, Senna-S 8.6-50 mg, Milk Of Magnesia 7.75 %, Tylenol 325 mg Allergies: Penicillin, Morphine PMH: Problem List: Essential hypertension Medical Problems: Heart Disease Hypertension Alzheimer's Disease Iron Deficiency Anemia Rectal Bleeding Peripheral Vascular Disease (PVD) Kidney Disease Edema Cataracts Diabetes Depression Insomnia Surgical Hx: Colonoscopy - 03/17/21 Anesthesia Complications: None Reviewed, no changes. FH: Noncontributory. Reviewed, no changes. SH: Personal Habits: Tobacco Use: Denies Smoking.Alcohol: Denies alcohol use.Drug Use: Denies Drug Use. Reviewed, no changes. ROS: Const: Denies chills, fatigue, fever, weight gain and weight loss. Eyes: Denies blurred vision and double vision. ENMT: Denies ear symptoms. Denies hoarseness. CV: Denies chest pain and palpitations. Resp: Denies chronic cough and wheezing. GI: Denies rectal bleeding, family history of colon cancer, constipation, diarrhea, dysphagia, heartburn and jaundice. : Denies dysuria, frequency, hematuria and nocturia. Musculo: Denies arthralgias, back pain and thrombophlebitis. Skin: Denies rash. Neuro: Denies headache, stroke and transient ischemic attack. Psych: Denies anxiety and depression. Endocrine: Denies thyroid disease. Yogi/Lymph: Denies senior care anticoagulant use, easy bleeding, bleeding/clotting disorder and post surgical bleeding. Allergy/Immuno: Denies rubber allergies and radiocontrast media reaction. Reviewed, no changes. Objective BP: 120/65 Ht: 65" 5'5" Wt: 164lb Stated Wt Prior: 164lb 5oz as of 03/18/21 Wt Dif: 0lb -5.0oz BMI: 27.3 IBW: 125 Wt k.390 Wt kg Prior: 74.532 as of 03/18/21 Wt kg Dif: -0.142 BSA: 1.82 Exam: Const: No signs of acute distress present. Head/Face: Normocephalic. No lesions present on inspection. Eyes: Conjunctivae pink and moist. No icterus of the sclerae bilaterally. ENMT: External nose exhibits no lesions. Lips exhibit no Lips exhibit lesions. Resp: Respiration rate is normal. No use of accessory muscles noted. Diaphragmatic excursion is normal. No wheezing or stridor. Chest expansion is symmetrical. Clear to auscultation bilaterally. Chest is normal to inspection and palpation. CV: Rate is regular. Rhythm is regular. No ectopic beats. Extremities: Peripheral circulation is normal with no evidence of clubbing or cyanosis. No edema of the lower limbs bilaterally. No varicosities noted. Abdomen: No bulging. The abdomen is nondistended, mildly obese and mildly rounded. Umbilicus is normal. No visible herniations. Skin is normal. No abdomi nal scars. Abdomen is soft, nontender, and nondistended. No abdominal masses palpable. No palpable hernias. Skin: Skin warm and dry with no evidence of unusual rashes or suspicious lesions. Hair appears normal. Neuro: Oriented to person, place, situation and time. Data Review: 03/23/21 - [place] 03/23/21 - Swathi Consult Report Upper GI endoscopy 03/17/2021 Colonoscopy 03/17/2021 shows nonbleeding internal hemorrhoids, diverticulosis. She'll the obstructing tumor in the mid descending colon which was biopsied. Pathology report shows moderately differentiated adenocarcinoma . Assessment #1: Hx C18.2 Malignant tumor of ascending colon Care Plan: Comments : Side full discussion with him spent 30 minutes with the patient, her and her sister. Patient has baseline dementia and is not able to participate in the decision-making due to poor insight. Her is also mentally slow but with repeated discussion seems to be able to grasp the condition of the patient as well as the concepts of the care. There also with her sister who has come with him to make sure that they understand the implications of her decision. I reviewed with him the results of the colonoscopy and the findings of a partially obstructing tumor at the ascending colon. Clinically she does not seem to be obstructed though she has long-standing anemia which requires scheduled iron IV infusion. I will rate on a metastatic workup with a CT of the chest abdomen and pelvis. I explained to them that there is no evidence of distal metastasis to common organs including that of the lungs, liver, adrenals. I've explained to them how colon cancer is staged. The end known part of the staging is the status of the lymph nodes and this will be known only if we do an oncologic resection. I explained to them what this means. She essentially will require a right colectomy with wide dissection of the lymph nodes that is draining the area double full picture of the stage of her colon cancer. I also explained to them that surgery may offer her a chance for a cure. Another discussion to be had this after full staging is whether she will need, or qualify, or they would want chemotherapy for her. I explained to them that radiation therapy is not usually an option for colon cancer. We have gone back and forth to make sure that her and understands her condition and the options which includes nontreatment, surgical treatment. Then later on oncology referral for further decision making for possible adjuvant therapy if needed or close surveillance. After this prolonged discussion, her has agreed for her to undergo surgery. She seems to have done well with the mechanical bowel prep for the colonoscopy. I explained to them that she will have to undergo both mechanical and antibiotic bowel preparation the night prior to the surgery according to instructions we will give the [facility]. We'll perform a robotic-assisted laparoscopic right colectomy with attempt at anastomosis. I explained to them the risks of the procedure including that of anastomotic leakage, bowel or vascular injury as well as risk for her to undergo general anesthesia. She is expected to stay in hospital for usually an average of and removed in 2-4 days for proper monitoring, pain control. Expected benefit is a possible cure to the cancer. Consent has been obtained from her . We will ask her primary care provider to help us in getting her ready for the surgery. addendum: Patient did not have a bowel prep overnight, will try to prep her today and see if we can do her surgery later on . If not may have to find time to do it this week. Vital Signs Vital Signs Date Time Temp Pulse Resp B/P (MAP) Pulse Ox O2 Delivery O2 Flow Rate FiO2 04/14/21 06:00 98.1 88 20 126/75 (92) 98 Room Air Laboratory Data Labs 24H Laboratory Tests 2 04/13/21 17:13: Bedside Glucose (Misc Panel) 84 Home Medications Scheduled Acetaminophen (Acetaminophen 8 Hour) 650 Mg Tablet.er, 650 MG PO TID, (Reported) Aspirin (Aspirin EC) 81 Mg Tab, 81 MG PO DAILY, (Reported) Carvedilol (Carvedilol) 3.125 Mg Tablet, BID, (Reported) Melatonin (Melatonin) 5 Mg Tab.subl, 5 MG SL QPM for sleep, (Reported) Sertraline Hcl (Sertraline HCl) 50 Mg Tablet, 50 MG PO DAILY, (Reported) Sodium Chloride (Saline Nose Magnolia) 45 Ml Magnolia, 1 SPRAY NARES TID, (Reported) Torsemide (Torsemide) 20 Mg Tablet, 30 MG PO DAILY, (Reported) Scheduled PRN Magnesium Hydroxide (Milk of Magnesia) 400 Mg/5 Ml Oral.susp, 2,400 MG PO DAILY PRN for CONSTIPATION, (Reported) Sennosides/Docusate Sodium (Senna Plus Tablet) 1 Each Tablet, 1 TAB PO BID PRN for CONSTIPATION, (Reported) Miscellaneous Medications Potassium Chloride (Potassium Chloride) 10 Meq Capsule.er, 20 MEQ, (Reported) Spironolactone (Spironolactone) 25 Mg Tablet, (Reported) Allergies Coded Allergies: morphine (Verified Allergy, Unknown, 03/10/21) Penicillins (Verified Adverse Reaction, Unknown, 03/10/21) A-FIB/CHADSVASC A-FIB History Current/History of A-Fib/PAF?: No Current PO Anticoag Therapy: No SHANIKA WOODWARD MD Apr 14, 2021 07:36
[2021-04-14] MEDS: SPIRONOLACTONE 25 MG TAB PO SCH (09:31)
[2021-04-14] MEDS: TORSEMIDE 10 MG TABLET PO SCH (09:33)
[2021-04-14] MEDS: CARVedilol 3.125 MG TAB PO SCH ×2 (09:33→20:38)
[2021-04-14] MEDS: SERTRALINE HCL 50 MG TAB PO SCH (13:31)
[2021-04-14 14:00] VITALS: BP_SYST 119; BP_SYST 136; BP_DIAS 62; BP_DIAS 66
--- NOTE | 2021-04-14 14:16 | CR.PDOC ---
General Date of Consultation: Apr 14, 2021 Referring Provider: SHANIKA ECHEVARRIA MD Consultation REASON FOR CONSULTATION/CHIEF COMPLAINT: Medical co-management HISTORY OF PRESENT ILLNESS: Mrs. Marinelli is an 81-year-old female who is a resident from [facility] with dementia, hypertension, diabetes mellitus, and HFrEF who is here for elective hemicolectomy for ascending colon malignancy. Patient was to have bowel prep for anticipated surgery on 04/13/2021, but she did not. She did have bowel prep last night, but there is a miscommunication, and she was not able to have her procedure today. Anticipating surgery tomorrow morning. Medicine was consulted for medical comanagement and recommendations. When I saw the patient, she was confused but very pleasant and energetic. 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 She thought she is at the hospital to help make dolls. I spoke with patient's nurse at [facility], Shama Zazueta. She tells me that the patient is very active. She is able to walk, but she often uses the wheelchair to move herself around. I spoke with Dr. Echevarria. He tells me he had an extensive conversation with patient's healthcare proxy, her and sister. ALLERGIES: Please see below. HOME MEDICATIONS: Please see below. PAST MEDICAL HISTORY: 1. Dementia. 2. Hypertension. 3. Diabetes mellitus. 4. Hypertension. 5. Hyperlipidemia. 6. Heart failure with reduced ejection fraction (EF of 30% on 05/18/2020) PAST SURGICAL HISTORY: 1. Appendectomy. 2. Partial hysterectomy. FAMILY HISTORY: Father: Thromboembolism of unknown site SOCIAL HISTORY: Tobacco use: Former smoker ETOH: Denies Illicit drug use: Denies REVIEW OF SYSTEMS: CONSTITUTIONAL: Denies any fever or chills. ENT: Denies sore throat. RESPIRATORY: Denies shortness of breath. Denies cough. CARDIOVASCULAR: Denies chest pain. GASTROINTESTINAL: Denies abdominal pain. GENITOURINARY: Denies dysuria. CUTANEOUS: Denies rashes. MUSCULOSKELETAL: Denies muscle weakness. NEUROLOGICAL: Denies paresthesias. PSYCHOLOGICAL: Denies anxiety. Denies depression. PHYSICAL EXAMINATION: VITAL SIGNS: Please see below. GENERAL: Comfortable, in no apparent distress. HEENT: EOMI, sclera clear. NECK: Supple. RESPIRATORY: Lungs clear to auscultation bilaterally, no rales, wheeze or rhonchi. CARDIOVASCULAR: Regular rate and rhythm. ABDOMEN: Soft, nontender, no guarding or rebound tenderness. Normal bowel sounds. MUSCLE SKELETAL: Muscle strength 5/5 in all extremities. NEUROLOGICAL: No focal deficits noted. PSYCHOLOGICAL: Normal mood and affect LABORATORY DATA: Please see below. ASSESSMENT/PLAN: 1. Ascending colon adenocarcinoma -General surgery, Dr. Echevarria, planning for OR tomorrow for right hemicolectomy -NPO overnight -I will hold diuretics on day of procedure -Agree with holding aspirin 2. Heart failure with reduced ejection fracture -Doing well at room air. Very active and tries to get up -Continue carvedilol -Holding diuretics and aspirin for surgery -I/O's and daily weights -When patient can be put on a diet, would recommend 2gm sodium diet 3. Dementia -Advanced and very confused, but pleasant -Supportive care and redirection -Continue sertraline -Fall risk 4. DVT -No chemical ppx -TEDs Disposition: Pending surgery Vital Signs/I&O Vital Signs Date Time Temp Pulse Resp B/P (MAP) Pulse Ox O2 Delivery O2 Flow Rate FiO2 04/14/21 09:33 96 125/77 04/14/21 06:00 98.1 20 98 Room Air Laboratory Data Labs 24H Laboratory Tests 2 04/13/21 17:13: Bedside Glucose (Misc Panel) 84 Allergies Coded Allergies: morphine (Verified Allergy, Unknown, 03/10/21) Penicillins (Verified Adverse Reaction, Unknown, 03/10/21) Home Medications Scheduled Acetaminophen (Acetaminophen 8 Hour) 650 Mg Tablet.er, 650 MG PO TID for 21 Days, #63 (Reported) Aspirin (Aspirin EC) 81 Mg Tab, 81 MG PO DAILY, (Reported) Carvedilol (Carvedilol) 3.125 Mg Tablet, BID, (Reported) Melatonin (Melatonin) 5 Mg Tab.subl, 5 MG SL QPM for sleep for 30 Days, #30 (Reported) Sertraline Hcl (Sertraline HCl) 50 Mg Tablet, 50 MG PO DAILY, (Reported) Sodium Chloride (Saline Nose Turner) 45 Ml Turner, 1 SPRAY NARES TID for 7 Days, #45 (Reported) Torsemide (Torsemide) 20 Mg Tablet, 30 MG PO DAILY, (Reported) Scheduled PRN Magnesium Hydroxide (Milk of Magnesia) 400 Mg/5 Ml Oral.susp, 2,400 MG PO DAILY PRN for CONSTIPATION, (Reported) Sennosides/Docusate Sodium (Senna Plus Tablet) 1 Each Tablet, 1 TAB PO BID PRN for CONSTIPATION, (Reported) Miscellaneous Medications Potassium Chloride (Potassium Chloride) 10 Meq Capsule.er, 20 MEQ, (Reported) Spironolactone (Spironolactone) 25 Mg Tablet, (Reported) BABITA VIRGEN DO Apr 14, 2021 14:16
[2021-04-14] MEDS ORDERED: GOLYTELY SOLN 4000 ML BTL PO ONE (18:00)
[2021-04-14] MEDS: LORazepam 2 MG/ML VIAL IV PRN (20:58)
[2021-04-14 22:00] VITALS: BP 167/83
[2021-04-15 06:00] VITALS: BP 119/66
[2021-04-15 06:36] LABS: HEMATOCRIT 34.3 % (36.0-47.0); HEMOGLOBIN 10.2 g/dl (12.0-15.5); MEAN CORPUSCULAR HEMOGLOBIN 24.8 pg (27.0-33.0); MEAN CORPUSCULAR HGB CONC 29.7 g/dl (32.0-36.5); MEAN CORPUSCULAR VOLUME 83.5 fl (80.0-96.0); PLATELET COUNT, AUTOMATED 296 10^3/uL (150-450); RED BLOOD COUNT 4.11 10^6/uL (4.00-5.40)
[2021-04-15 06:52] LABS: INR 1.19; PROTHROMBIN TIME 15.4 SECONDS (12.5-14.3)
[2021-04-15 06:53] LABS: PARTIAL THROMBOPLASTIN TIME 31.2 SECONDS (24.2-38.5)
[2021-04-15 06:59] LABS: ALBUMIN 3.2 GM/DL (3.2-5.2); BILIRUBIN,TOTAL 0.6 MG/DL (0.2-1.0); CALCIUM LEVEL 8.6 MG/DL (8.8-10.2); CREATININE FOR GFR 1.02 MG/DL (0.55-1.30); GLOMERULAR FILTRATION RATE 55.4 (>32); POTASSIUM SERUM 4.2 MEQ/L (3.5-5.1); TOTAL PROTEIN 6.9 GM/DL (6.4-8.2)
[2021-04-15] MEDS ORDERED: metroNIDAZOLE (FLAGYL) 500MG TABLET PO ONE (09:00)
[2021-04-15] MEDS ORDERED: NEOMYCIN SULFATE 500 MG TAB PO ONE (09:00)
[2021-04-15] MEDS ORDERED: HEPARIN SOD (PORCINE) 5000UNITS/ML 1ML VIAL/SYRINGE SQ ONE (09:00)
[2021-04-15] MEDS: SERTRALINE HCL 50 MG TAB PO SCH (10:50)
[2021-04-15] MEDS: ALVIMOPAN 12 MG CAPSULE (ENTEREG) PO SCH ×2 (10:50→22:32)
[2021-04-15] MEDS: CARVedilol 3.125 MG TAB PO SCH ×2 (10:53→21:00)
[2021-04-15 14:00] VITALS: BP 118/79
[2021-04-15 14:56] LABS: TROPONIN I 0.13 NG/ML (< 0.10)
[2021-04-15] MEDS ORDERED: LevoFLOXacin IV 250 MG in IV 1 EA IV ONE (15:00)
[2021-04-15] MEDS ORDERED: metroNIDAZOLE 500 MG in IV 1 EA IV ONE (15:00)
--- NOTE | 2021-04-15 15:55 | IPNPDOC ---
Subjective Date Seen The patient was seen on 04/15/21. Subjective Chief Complaint/HPI Mrs. Marinelli is an 81-year-old female who is a resident from [facility] with dementia, hypertension, diabetes mellitus, and HFrEF who is here for elective hemicolectomy for ascending colon malignancy. All night she was awake. Early this morning, she was agitated and pulled out her IV line. I saw her early afternoon. Denies chest pain or dyspnea. I re-reviewed her EKGs. Both EKGs from 04/07/21 and 04/13/21 demonstrate T-wave inversions in V4 through V6. Not present on EKG on 05/18/20. She was admitted on 04/2020 and was found to have new onset heart failure with EF of 30%. Unknown if patient had follow up with cardiology or life vest for low EF. I ordered a troponin which was 0.08 yesterday and 0.13 today. Patient may benefit from cardiac clearance prior to surgery. Objective Physical Examination General Exam: Positive: Cooperative Eye Exam: Positive: EOMI; Negative: Sclera icteric ENT Exam: Positive: Atraumatic Neck Exam: Positive: Supple Chest Exam: Positive: Clear to auscultation Heart Exam: Positive: Rate Normal, Regular Rhythm Abdomen Exam: Positive: Normal bowel sounds, Soft; Negative: Tenderness Extremity Exam: Positive: Edema (mild pitting edema) Neuro Exam: Positive: Normal Speech Psych Exam: Negative: Memory Intact (very confused) Assessment /Plan Plan/VTE VTE Prophylaxis Ordered?: Yes Plan 1. Ascending colon adenocarcinoma -Patient is active and denies chest pain, but has troponin trending upward from 0.08 to 0.13 -EKG demonstrated T-wave changes that was not seen a year ago -Patient had new heart failure with EF at 30%. Unclear if patient had outpatient cardiac work up for new heart failure with reduced ejection fraction -Patient may benefit from cardiac clearance prior to surgery. I discussed this with Dr. Echevarria 2. Heart failure with reduced ejection fraction -Doing well at room air -Continue cardiac medications -I/O's and daily weights 3. Dementia -Advanced and very confused, but pleasant -Supportive care and redirection -Continue sertraline -Fall risk 4. DVT -No chemical ppx -TEDs Would recommend patient to see cardiology for cardiac clearance and repeat echocardiogram for evaluation of low EF. Patient may benefit from AICD with low EF. VS, I&O, 24H, Fishbone Vital Signs/I&O Vital Signs Date Time Temp Pulse Resp B/P (MAP) Pulse Ox O2 Delivery O2 Flow Rate FiO2 04/15/21 10:53 85 112/66 04/15/21 06:00 97.8 18 98 Room Air I&O- Last 24 Hours up to 6 AM 04/15/21 06:00 Intake Total 630 ml Balance 630 ml Laboratory Data 24H LABS Laboratory Tests 2 04/15/21 05:49: Nucleated Red Blood Cells % (auto) 0.0, Prothrombin Time 15.4H, Prothromb Time International Ratio 1.19, Activated Partial Thromboplast Time 31.2, Anion Gap 6L, Glomerular Filtration Rate 55.4, Calcium Level 8.6L, Total Bilirubin 0.6, Aspartate Amino Transf (AST/SGOT) 17, Alanine Aminotransferase (ALT/SGPT) 13, Alkaline Phosphatase 110, Troponin I 0.13#H, Total Protein 6.9, Albumin 3.2, Albumin/Globulin Ratio 0.9L CBC/BMP Laboratory Tests 04/15/21 05:49 BABITA VIRGEN DO Apr 15, 2021 15:55
--- NOTE | 2021-04-15 16:17 | IPNPDOC ---
Text Note Date of Service The patient was seen on 04/15/21. NOTE Patient is her usual confused self. She is hemodynamically stable. I was info rmed by Dr. Chan that he is concerned whether the patient is appropriate for general anesthesia given the baseline EF of 30% so he checked her troponins. This was 0.08 but mildly elevated at 0.013 this afternoon. He is of the opinion that a more thorough cardiac workup would be appropriate for her. So I discussed this with her and her sister. I will send her back to [facility] and arrange for outpatient referral for cardiology clearance. VS,[place], I+O VS, [place], I+O Laboratory Tests 04/15/21 05:49 Vital Signs Date Time Temp Pulse Resp B/P (MAP) Pulse Ox O2 Delivery O2 Flow Rate FiO2 04/15/21 10:53 85 112/66 04/15/21 06:00 97.8 18 98 Room Air I&O- Last 24 Hours up to 6 AM 04/15/21 05:59 Intake Total 630 ml Balance 630 ml SHANIKA WOODWARD MD Apr 15, 2021 16:17
[2021-04-15] MEDS ORDERED: LORazepam 2 MG/ML VIAL As Ordered ONE (21:58)
[2021-04-15 22:00] VITALS: BP 96/55
[2021-04-16] MEDS: LORazepam 2 MG/ML VIAL IV PRN (03:02)
[2021-04-16 06:00] VITALS: BP 113/64
[2021-04-16 06:16] LABS: HEMATOCRIT 30.1 % (36.0-47.0); MEAN CORPUSCULAR HEMOGLOBIN 24.9 pg (27.0-33.0); MEAN CORPUSCULAR HGB CONC 29.9 g/dl (32.0-36.5); MEAN CORPUSCULAR VOLUME 83.4 fl (80.0-96.0); PLATELET COUNT, AUTOMATED 258 10^3/uL (150-450); RED BLOOD COUNT 3.61 10^6/uL (4.00-5.40); WHITE BLOOD COUNT 6.2 10^3/uL (4.0-10.0)
[2021-04-16 06:42] LABS: CALCIUM LEVEL 8.6 MG/DL (8.8-10.2); CREATININE FOR GFR 1.1 MG/DL (0.55-1.30); GLOMERULAR FILTRATION RATE 50.7 (>32); POTASSIUM SERUM 3.5 MEQ/L (3.5-5.1); TROPONIN I 0.1 NG/ML (< 0.10)
[2021-04-16] MEDS: ALVIMOPAN 12 MG CAPSULE (ENTEREG) PO SCH (08:28)
[2021-04-16 08:29] VITALS: BP 116/76
[2021-04-16] MEDS: CARVedilol 3.125 MG TAB PO SCH (08:29)
[2021-04-16] MEDS: SERTRALINE HCL 50 MG TAB PO SCH (08:29)
[2021-04-16] MEDS: TORSEMIDE 10 MG TABLET PO SCH (08:29)
[2021-04-16] MEDS: SPIRONOLACTONE 25 MG TAB PO SCH (08:29)
--- NOTE | 2021-04-16 09:03 | DS.PDOC ---
Discharge Summary General Date of Admission Apr 13, 2021 at 06:24 Date of Discharge 04/16/21 Discharge Summary Gen. surgery. Dr. Echevarria PROCEDURES PERFORMED DURING STAY: None. ADMITTING DIAGNOSES: Malignant tumor of ascending colon CAD Hypertension Alzheimer's Disease Iron Deficiency Anemia Rectal Bleeding Peripheral Vascular Disease (PVD) Kidney Disease Edema Cataracts Diabetes Depression Insomnia DISCHARGE DIAGNOSES: Malignant tumor of ascending colon CAD Hypertension Alzheimer's Disease Iron Deficiency Anemia Rectal Bleeding Peripheral Vascular Disease (PVD) Kidney Disease Edema Cataracts Diabetes Depression Insomnia CHIEF COMPLAINT: Right Colon/Ascending Colon Cancer. HISTORY OF PRESENT ILLNESS: Colon cancer. Patient was here to discuss options for recent finding of ascending colon malignancy on colonoscopy. She was being worked up for the cause of her long-standing anemia. She underwent upper endoscopy and colonoscopy by Dr. Mcdaniel on 03/17/2021. She has baseline dementia and does not seem to have insight on her condition. Review of [facility] records showed that she has long-standing iron deficiency anemia that requires IV iron infusion. 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 CT of the chest abdomen and pelvis which was done for metastatic workup reviewed by Dr. Echevarria, no evidence of distal metastasis to common organs including that of the lungs, liver, adrenals. Her He is the primary decision maker for her. She is a resident at [facility]. HOSPITAL COURSE: The patient was admitted to [facility] on 04/13/21 after a long discussion with Dr. Echevarria, the patient's and her sister. The patient has history of dementia and is unable to participate in decision-making due to poor insight. Dr. Echevarria discussed proceeding with robotic-assisted laparoscopic right colectomy with wide dissection of lymph nodes for full staging of her colon cancer. The patient would require oncology referral following this for decision-making for possible adjuvant therapy if needed. Following prolonged discussion her agreed to proceed with surgery and arrangements were made to proceed. Hospitalist service was consulted for medical clearance, her baseline EF was noted to be 30% on TTE 05/18/20, troponin obtained 04/14/21 was 0.08. Hospitalist recommendation is for cardiac clearance prior to proceeding with surgery. Plan is to discharge the patient back to [facility] and arrange for outpatient referral to cardiology for cardiac clearance to proceed with surgery. DISCHARGE MEDICATIONS: Please see below. ALLERGIES: Please see below. PHYSICAL EXAMINATION ON DISCHARGE: VITAL SIGNS: Please see below. GENERAL: NAD HEENT: MMM CARDIOVASCULAR EXAMINATION: RRR RESPIRATORY EXAMINATION: CTA ABDOMINAL EXAMINATION: soft, NT LABORATORY DATA: Please see below. DISCHARGE PLAN: Discharge to [facility] Home Follow-up with Dr. Echevarria in one week. Dr. Echevarria's office will arrange referral to Cardiology for cardiac clearance to proceed with surgery Activity as tolerated Regular diet ITEMS TO FOLLOWUP ON ON OUTPATIENT: Cardiac clearance to proceed with surgery. DISCHARGE CONDITION: Stable. TIME SPENT ON DISCHARGE: Greater than 30 minutes. Vital Signs/I&Os Vital Signs Date Time Temp Pulse Resp B/P (MAP) Pulse Ox O2 Delivery O2 Flow Rate FiO2 04/16/21 08:29 90 116/76 04/16/21 06:00 97.6 18 99 Room Air I&O- Last 24 Hours up to 6 AM 04/16/21 05:59 Intake Total 1660 ml Balance 1660 ml Laboratory Data Labs 24H Laboratory Tests 2 04/16/21 05:36: Nucleated Red Blood Cells % (auto) 0.0, Anion Gap 6L, Glomerular Filtration Rate 50.7, Calcium Level 8.6L, Troponin I 0.10# CBC/BMP Laboratory Tests 04/16/21 05:36 Discharge Medications Scheduled Aspirin (Aspirin EC) 81 Mg Tab, 81 MG PO DAILY, (Reported) Carvedilol (Carvedilol) 3.125 Mg Tablet, BID, (Reported) Melatonin (Melatonin) 5 Mg Tab.subl, 5 MG SL QPM for sleep, (Reported) Sertraline Hcl (Sertraline HCl) 50 Mg Tablet, 50 MG PO DAILY, (Reported) Sodium Chloride (Saline Nose Conway) 45 Ml Conway, 1 SPRAY NARES TID, (Reported) Torsemide (Torsemide) 20 Mg Tablet, 30 MG PO DAILY, (Reported) Scheduled PRN Magnesium Hydroxide (Milk of Magnesia) 400 Mg/5 Ml Oral.susp, 2,400 MG PO DAILY PRN for CONSTIPATION, (Reported) Sennosides/Docusate Sodium (Senna Plus Tablet) 1 Each Tablet, 1 TAB PO BID PRN for CONSTIPATION, (Reported) Miscellaneous Medications Potassium Chloride (Potassium Chloride) 10 Meq Capsule.er, 20 MEQ, (Reported) Spironolactone (Spironolactone) 25 Mg Tablet, (Reported) Allergies Coded Allergies: morphine (Verified Allergy, Unknown, 03/10/21) Penicillins (Verified Adverse Reaction, Unknown, 03/10/21) Malathi Ballesteros Apr 16, 2021 09:03
== END 2021-04-16 11:45 | DRG 375 ==
LOC: M OR 06:24 → M MSPAV 08:28
PROVIDERS: ADMIT Surgery; ATTEND Surgery
DX: C18.2 Malignant neoplasm of ascending colon (principal); I50.22 Chronic systolic (congestive) heart failure; G30.9 Alzheimer's disease, unspecified; F02.80 Dementia in other diseases classified elsewhere, unspecified severity, without behavioral disturbance, psychotic disturbance, mood disturbance, and anxiety; D50.9 Iron deficiency anemia, unspecified; I11.0 Hypertensive heart disease with heart failure; E11.9 Type 2 diabetes mellitus without complications; Z66 Do not resuscitate; Z98.49 Cataract extraction status, unspecified eye; I73.89 Other specified peripheral vascular diseases; F32.9 Major depressive disorder, single episode, unspecified; G47.00 Insomnia, unspecified; Z79.82 Long term (current) use of aspirin; Z79.899 Other long term (current) drug therapy; Z88.0 Allergy status to penicillin; Z88.5 Allergy status to narcotic agent; Z20.822 Contact with and (suspected) exposure to COVID-19; Z90.49 Acquired absence of other specified parts of digestive tract; Z90.79 Acquired absence of other genital organ(s); I25.10 Atherosclerotic heart disease of native coronary artery without angina pectoris; N28.9 Disorder of kidney and ureter, unspecified

== ENCOUNTER → 2021-04-22 | Outpatient (REF) | payer MEDICARE, OTHER | LOC: SKLAB7 07:00 | PROVIDERS: ATTEND Internal Medicine | DX: E11.9 Type 2 diabetes mellitus without complications (principal) ==

== ENCOUNTER → 2021-05-11 | Outpatient (REF) | payer MEDICARE, OTHER ==
[2021-05-11 10:31] LABS: ALBUMIN 3.4 GM/DL (3.2-5.2); BILIRUBIN,DIRECT 0.1 MG/DL (0.0-0.2); BILIRUBIN,TOTAL 0.4 MG/DL (0.2-1.0); CALCIUM LEVEL 8.7 MG/DL (8.8-10.2); CREATININE FOR GFR 1.02 MG/DL (0.55-1.30); GLOMERULAR FILTRATION RATE 55.4 (>32); MAGNESIUM LEVEL 2.1 MG/DL (1.8-2.4); PHOSPHORUS LEVEL 2.9 MG/DL (2.5-4.9); POTASSIUM SERUM 4.1 MEQ/L (3.5-5.1); TOTAL PROTEIN 7.1 GM/DL (6.4-8.2)
== END ==
LOC: SKLAB7 07:00
PROVIDERS: ATTEND Internal Medicine
DX: I11.0 Hypertensive heart disease with heart failure (principal); I50.9 Heart failure, unspecified

== ENCOUNTER → 2021-05-18 | Outpatient (REF) | payer MEDICARE, OTHER ==
[2021-05-18 09:05] LABS: HEMATOCRIT 35.8 % (36.0-47.0); HEMOGLOBIN 10.8 g/dl (12.0-15.5); MEAN CORPUSCULAR HEMOGLOBIN 25.5 pg (27.0-33.0); MEAN CORPUSCULAR HGB CONC 30.2 g/dl (32.0-36.5); MEAN CORPUSCULAR VOLUME 84.4 fl (80.0-96.0); PLATELET COUNT, AUTOMATED 252 10^3/uL (150-450); RED BLOOD COUNT 4.24 10^6/uL (4.00-5.40); WHITE BLOOD COUNT 7.9 10^3/uL (4.0-10.0)
[2021-05-18 09:51] LABS: CREATININE FOR GFR 1.13 MG/DL (0.55-1.30); GLOMERULAR FILTRATION RATE 49.2 (>32); POTASSIUM SERUM 4.3 MEQ/L (3.5-5.1)
== END ==
LOC: SKLAB7 10:44
PROVIDERS: ATTEND Internal Medicine
DX: D64.9 Anemia, unspecified (principal); I50.9 Heart failure, unspecified

== ENCOUNTER → 2021-06-17 | Outpatient (REF) | payer MEDICARE, OTHER | LOC: SKLAB7 07:00 | PROVIDERS: ATTEND Internal Medicine | DX: D64.9 Anemia, unspecified (principal) ==

== ENCOUNTER → 2021-06-22 | Outpatient (REF) | payer MEDICARE, OTHER ==
[2021-06-22 08:29] LABS: HEMATOCRIT 35.4 % (36.0-47.0); HEMOGLOBIN 11.3 g/dl (12.0-15.5); MEAN CORPUSCULAR HEMOGLOBIN 27.8 pg (27.0-33.0); MEAN CORPUSCULAR HGB CONC 31.9 g/dl (32.0-36.5); PLATELET COUNT, AUTOMATED 291 10^3/uL (150-450); RED BLOOD COUNT 4.07 10^6/uL (4.00-5.40)
== END ==
LOC: SKLAB7 10:24
PROVIDERS: ATTEND Internal Medicine
DX: E11.9 Type 2 diabetes mellitus without complications (principal); I10 Essential (primary) hypertension; Z51.81 Encounter for therapeutic drug level monitoring; Z79.899 Other long term (current) drug therapy

== ENCOUNTER → 2021-06-25 | Outpatient (REF) | payer MEDICARE, OTHER ==
[2021-06-25 08:04] LABS: MALB URINE SIEMENS 29.9 MG/L; MAU/CREAT RATIO 29.6 MCG/MG (0.0-30.0)
== END ==
LOC: SKLAB7 07:07
PROVIDERS: ATTEND Internal Medicine
DX: E11.9 Type 2 diabetes mellitus without complications (principal)

== ENCOUNTER → 2021-07-16 | Outpatient (REF) | payer MEDICARE, OTHER ==
[2021-07-16 13:44] LABS: CREATININE FOR GFR 1.13 MG/DL (0.55-1.30); GLOMERULAR FILTRATION RATE 49.2 (>32); POTASSIUM SERUM 4.5 MEQ/L (3.5-5.1)
[2021-07-16 14:43] LABS: HEMOGLOBIN A1c 6.5 %
== END ==
LOC: SKLAB7 07-15 07:00
PROVIDERS: ATTEND Internal Medicine
DX: I50.9 Heart failure, unspecified (principal); E11.9 Type 2 diabetes mellitus without complications

== ENCOUNTER → 2021-08-10 | Outpatient (REF) | payer MEDICARE, OTHER ==
[2021-08-10 14:08] LABS: CALCIUM LEVEL 8.4 MG/DL (8.8-10.2); CREATININE FOR GFR 1.27 MG/DL (0.55-1.30); POTASSIUM SERUM 4.7 MEQ/L (3.5-5.1)
== END ==
LOC: SKLAB7 09:34
PROVIDERS: ATTEND Internal Medicine
DX: I50.9 Heart failure, unspecified (principal)

== ENCOUNTER → 2021-08-17 | Outpatient (REF) | payer MEDICARE, OTHER | LOC: SKLAB7 10:59 | PROVIDERS: ATTEND Internal Medicine | DX: Z20.822 Contact with and (suspected) exposure to COVID-19 (principal) ==

== ENCOUNTER → 2021-08-18 | Outpatient (REF) | payer MEDICARE, OTHER ==
[2021-08-18 13:38] LABS: HEMATOCRIT 31.5 % (36.0-47.0); HEMOGLOBIN 9.9 g/dl (12.0-15.5); MEAN CORPUSCULAR HEMOGLOBIN 27.3 pg (27.0-33.0); MEAN CORPUSCULAR HGB CONC 31.4 g/dl (32.0-36.5); PLATELET COUNT, AUTOMATED 297 10^3/uL (150-450); RED BLOOD COUNT 3.62 10^6/uL (4.00-5.40); WHITE BLOOD COUNT 6.8 10^3/uL (4.0-10.0)
[2021-08-18 14:22] LABS: ALBUMIN 3.2 GM/DL (3.2-5.2); BILIRUBIN,TOTAL 0.5 MG/DL (0.2-1.0); CALCIUM LEVEL 9.3 MG/DL (8.8-10.2); CREATININE FOR GFR 1.36 MG/DL (0.55-1.30); GLOMERULAR FILTRATION RATE 39.7 (>32); POTASSIUM SERUM 4.8 MEQ/L (3.5-5.1); TOTAL PROTEIN 7.7 GM/DL (6.4-8.2)
== END ==
LOC: SKLAB2 12:09
PROVIDERS: ATTEND Internal Medicine
DX: U07.1 COVID-19 (principal); Z79.899 Other long term (current) drug therapy

== ENCOUNTER → 2021-08-20 | Outpatient (REF) | payer MEDICARE, OTHER ==
[2021-08-20 13:49] LABS: HEMATOCRIT 32.6 % (36.0-47.0); HEMOGLOBIN 10.2 g/dl (12.0-15.5); MEAN CORPUSCULAR HEMOGLOBIN 27.1 pg (27.0-33.0); MEAN CORPUSCULAR HGB CONC 31.3 g/dl (32.0-36.5); MEAN CORPUSCULAR VOLUME 86.5 fl (80.0-96.0); PLATELET COUNT, AUTOMATED 292 10^3/uL (150-450); RED BLOOD COUNT 3.77 10^6/uL (4.00-5.40)
[2021-08-20 14:27] LABS: CALCIUM LEVEL 8.8 MG/DL (8.8-10.2); CREATININE FOR GFR 1.41 MG/DL (0.55-1.30); GLOMERULAR FILTRATION RATE 38.1 (>32)
== END ==
LOC: SKLAB2 07:00
PROVIDERS: ATTEND Internal Medicine
DX: U07.1 COVID-19 (principal); Z79.899 Other long term (current) drug therapy

== ENCOUNTER → 2021-08-23 | Outpatient (REF) | payer MEDICARE, OTHER ==
[~2021-08-23] MED LIST changes: +ACETAMINOPHEN TAB 650MG DOSE (2X325MG) PO ONE; +ALBUTEROL 90 MCG/ACT 8GM HFA INHALER INH PRN; +ALBUTEROL SULFATE 2.5 MG/0.5 ML INH NEB SOLN INH PRN; +BAMLANIVIMAB 700 MG, ETESEVIMAB 1,400 MG in NS 250 ML IV ONE; +EPINEPHrine INJ 1 MG/ML 1ML AMP IM PRN; +NS 1,000 ML IV SCH; +diphenhydrAMINE 25MG CAP PO ONE; +diphenhydrAMINE 50MG/ML VIAL (J1200) IV PRN; +methylPREDNISolone 125MG 2ML VIAL IV PRN
[2021-08-23 11:18] LABS: HEMATOCRIT 32.7 % (36.0-47.0); HEMOGLOBIN 10.3 g/dl (12.0-15.5); MEAN CORPUSCULAR HGB CONC 31.5 g/dl (32.0-36.5); MEAN CORPUSCULAR VOLUME 85.6 fl (80.0-96.0); PLATELET COUNT, AUTOMATED 282 10^3/uL (150-450); RED BLOOD COUNT 3.82 10^6/uL (4.00-5.40); WHITE BLOOD COUNT 6.8 10^3/uL (4.0-10.0)
[2021-08-23 11:39] LABS: CALCIUM LEVEL 8.6 MG/DL (8.8-10.2); CREATININE FOR GFR 1.43 MG/DL (0.55-1.30); GLOMERULAR FILTRATION RATE 37.5 (>32); POTASSIUM SERUM 4.3 MEQ/L (3.5-5.1)
== END ==
LOC: SKLAB2 09:05
PROVIDERS: ATTEND Internal Medicine
DX: U07.1 COVID-19 (principal); Z79.899 Other long term (current) drug therapy

== ENCOUNTER → 2021-08-25 | Outpatient (REF) | payer MEDICARE, OTHER ==
[~2021-08-25] MED LIST changes: -ACETAMINOPHEN TAB 650MG DOSE (2X325MG) PO ONE; -ALBUTEROL 90 MCG/ACT 8GM HFA INHALER INH PRN; -ALBUTEROL SULFATE 2.5 MG/0.5 ML INH NEB SOLN INH PRN; -BAMLANIVIMAB 700 MG, ETESEVIMAB 1,400 MG in NS 250 ML IV ONE; -EPINEPHrine INJ 1 MG/ML 1ML AMP IM PRN; -NS 1,000 ML IV SCH; -diphenhydrAMINE 25MG CAP PO ONE; -diphenhydrAMINE 50MG/ML VIAL (J1200) IV PRN; -methylPREDNISolone 125MG 2ML VIAL IV PRN
[2021-08-25 10:58] LABS: HEMATOCRIT 34.1 % (36.0-47.0); HEMOGLOBIN 10.6 g/dl (12.0-15.5); MEAN CORPUSCULAR HEMOGLOBIN 26.9 pg (27.0-33.0); MEAN CORPUSCULAR HGB CONC 31.1 g/dl (32.0-36.5); MEAN CORPUSCULAR VOLUME 86.5 fl (80.0-96.0); PLATELET COUNT, AUTOMATED 293 10^3/uL (150-450); RED BLOOD COUNT 3.94 10^6/uL (4.00-5.40); WHITE BLOOD COUNT 11.4 10^3/uL (4.0-10.0)
[2021-08-25 11:29] LABS: CALCIUM LEVEL 9.2 MG/DL (8.8-10.2); CREATININE FOR GFR 1.46 MG/DL (0.55-1.30); GLOMERULAR FILTRATION RATE 36.6 (>32); POTASSIUM SERUM 3.9 MEQ/L (3.5-5.1)
== END ==
LOC: SKLAB2 07:00
PROVIDERS: ATTEND Internal Medicine
DX: U07.1 COVID-19 (principal); Z79.899 Other long term (current) drug therapy

== ENCOUNTER → 2021-08-27 | Outpatient (REF) | payer MEDICARE, OTHER | LOC: SKLAB2 07:00 | PROVIDERS: ATTEND Internal Medicine | DX: U07.1 COVID-19 (principal); Z53.9 Procedure and treatment not carried out, unspecified reason ==

== ENCOUNTER → 2021-09-15 | Outpatient (REF) | payer MEDICARE, OTHER ==
[2021-09-15 12:41] LABS: HEMATOCRIT 37.5 % (36.0-47.0); HEMOGLOBIN 11.7 g/dl (12.0-15.5); MEAN CORPUSCULAR HEMOGLOBIN 26.7 pg (27.0-33.0); MEAN CORPUSCULAR HGB CONC 31.2 g/dl (32.0-36.5); MEAN CORPUSCULAR VOLUME 85.4 fl (80.0-96.0); PLATELET COUNT, AUTOMATED 287 10^3/uL (150-450); RED BLOOD COUNT 4.39 10^6/uL (4.00-5.40); WHITE BLOOD COUNT 8.5 10^3/uL (4.0-10.0)
[2021-09-15 13:14] LABS: ALBUMIN 3.4 GM/DL (3.2-5.2); BILIRUBIN,TOTAL 0.4 MG/DL (0.2-1.0); CALCIUM LEVEL 9.6 MG/DL (8.8-10.2); CREATININE FOR GFR 1.55 MG/DL (0.55-1.30); GLOMERULAR FILTRATION RATE 34.2 (>32); POTASSIUM SERUM 5.8 MEQ/L (3.5-5.1); TOTAL PROTEIN 7.4 GM/DL (6.4-8.2); VALPROIC ACID (DEPAKOTE) 33.9 UG/ML (50.0-100.0)
--- NOTE | 2021-09-15 14:28 | REP ---
INDICATION: CONSTIPATION KNOWN ASCENDING COLON TUMOR COMPARISON: None. TECHNIQUE: Supine view of the abdomen and pelvis. FINDINGS: Bowel gas pattern is relatively nonspecific. Skeletal structures demonstrate age-related osteopenia and degenerative changes. IMPRESSION: Nonspecific bowel gas pattern. <Electronically signed by Tyrel Morataya > 09/15/21 [id number]
== END ==
LOC: SKLAB8 11:23 → SKLAB7 11:25
PROVIDERS: ATTEND Internal Medicine
DX: K59.00 Constipation, unspecified (principal); Z51.81 Encounter for therapeutic drug level monitoring; C18.9 Malignant neoplasm of colon, unspecified

== ENCOUNTER → 2021-09-16 | Outpatient (REF) | payer MEDICARE, OTHER ==
[2021-09-16 11:16] LABS: CALCIUM LEVEL 9.3 MG/DL (8.8-10.2); CREATININE FOR GFR 2.11 MG/DL (0.55-1.30); GLOMERULAR FILTRATION RATE 23.9 (>32); POTASSIUM SERUM 4.5 MEQ/L (3.5-5.1)
== END ==
LOC: SKLAB7 09:00
PROVIDERS: ATTEND Internal Medicine
DX: E87.5 Hyperkalemia (principal)

== ENCOUNTER → 2021-09-21 | Outpatient (REF) | payer MEDICARE, OTHER | LOC: SKLAB7 13:43 | PROVIDERS: ATTEND Internal Medicine | DX: I50.9 Heart failure, unspecified (principal); Z53.9 Procedure and treatment not carried out, unspecified reason ==